=== PATIENT | male | born 1940 | race Caucasian/White ===

== ENCOUNTER 2017-12-14 09:30 | Day surgery (SDC) | payer MEDICARE, SELFPAY ==
--- NOTE | 2017-12-14 | PATH_ITS ---
[facility] Accession Number: [id number] . 01 Material submitted: . PART A: CECAL POLYP PART B: ASCENDING COLON POLYPS X5 PART C: TRANSVERSE COLON POLYPS X4 . 02 Diagnosis: A. Cecal Polyp: Tubular adenoma. . B. Ascending Colon Polyps: Fragments of tubular adenoma (five polyps removed). . C. Transverse Colon Polyps: Fragments of tubular adenoma (four polyps removed). [facility]/12/16/2017 . 02 Electronically signed: . Monty Reno MD, PhD, Pathologist NPI- [id number] . 01 Gross description: . Part A: CECAL POLYP: Received in formalin are 3 fragment(s) of whelan, soft tissue measuring 1.1 x 0.4 x 0.3 cm to 0.3 x 0.3 x 0.1 cm submitted entirely in 1 cassette(s) Part B: ASCENDING COLON POLYPS X5: Received in formalin are multiple fragment(s) of whelan, soft tissue measuring 1.0 x 0.3 x 0.2 cm in aggregate submitted entirely in 1 cassette(s) Part C: TRANSVERSE COLON POLYPS X4: Received in formalin are multiple fragment(s) of whelan, soft tissue measuring 2.0 x 0.4 x 0.2 cm in aggregate submitted entirely in 1 cassette(s) /CKI /CKI . 02 Pathologist provided ICD-10: D12.0, D12.2, D12.3 . 02 CPT . 080993, 577224, [id number] Performed at: 01 [facility] [address] [facility] [place], [place], [place] [id number] MD Ferny Green MD Phone: [phone] Performed at: 02 [facility] [address] [place] [id number] MD Dave Salmon MD Phone: [phone]
[2017-12-14 09:48] VITALS: BP 152/70; PULSE 82; RESP 16; TEMP 37.2; O2SAT 95; BMI 34.5
[2017-12-14] MEDS: SODIUM CHLORIDE 0.9% 1,000 ML 70 ML IV (09:59)
--- NOTE | 2017-12-14 10:21 | PM.HP.1 ---
History of Present Illness Date Patient Seen: 12/14/17 Chief complaint: [id number] Narrative: 77-year-old male with history of colon polyps who is here for surveillance. The patient is not on any anticoagulation and currently has no active GI issues. Prior colonoscopy report not available for review although the patient mentions he has had multiple colonoscopies in the past the last being around 3 years ago with polyps being found. Patient History Family & Social History Social History: household members spouse Meds Home Medications Medication Instructions Recorded Confirmed Type ASPIRIN (Aspirin Low Dose) 81 mg PO Q DAY #0 02/21/10 History DILTIAZEM HCL (DILT-CD) 240 mg PO BID #0 01/24/12 History hydrochlorothiazide [Microzide] 25 mg PO Q DAY #0 01/24/12 History irbesartan [Avapro] 300 mg PO QDAY #0 01/24/12 History hydralazine 50 mg tablet 50 mg PO TID 11/02/17 History tamsulosin 0.4 mg capsule 0.4 mg PO DAILY 11/02/17 11/02/17 History Allergies Allergy/AdvReac Type Severity Reaction Status Date / Time No Known Drug Allergies Allergy Verified 12/14/17 10:08 Review of Systems Review of Systems All systems reviewed & are unremarkable except as noted in HPI and below Exam Vital Signs (past 8 hours): - 12/14/17 09:48 Temperature 98.9 F Pulse Rate 82 Respiratory Rate 16 Blood Pressure 152/70 H Pulse Oximetry 95 Oxygen Delivery Method Room Air Narrative Exam Narrative: General: Patient is obese, not in apparent distress Cardiovascular: Regular rate and rhythm, no murmurs, rubs, or gallops; no evidence of edema; no palpable abdominal aortic aneurysm Gastrointestinal: Normoactive bowel sounds, soft, nontender, nondistended, no rebound tenderness, no hepatosplenomegaly, no evidence of hernia Assessment & Plan Plan: Assessment/Plan Narrative: 77-year-old male who is here for a surveillance colonoscopy due to history of colon polyps. Patient appears stable for the procedure with no active GI complaints. He is currently on aspirin. Regarding the procedure(s), the risks and potential complications, benefits, and alternatives (including not doing the procedure) were discussed with the patient. The risks include but are not limited to bleeding, infection, perforation which may require surgical intervention, missed lesions, and adverse reactions to sedative medicines. After a question and answer period, the patient agreed to proceed with the procedure(s) and gives informed consent.
--- NOTE | 2017-12-14 11:01 | PM.OP.ENDO ---
Operative Date/Time/Diagnoses Date of procedure: 12/14/17 Procedure Notes Procedure in detail: Surgeon: Kalpesh Horta MD Procedure: Colonoscopy with polypectomy Preoperative diagnosis: Colon polyp surveillance; primary procedure Postoperative diagnosis: 10 colon polyps status post polypectomy; sigmoid diverticulosis; grade 1 internal hemorrhoids Medications: Conscious sedation using 3 mg IV of Midazolam and 75 mcg IV of Fentanyl Preanesthesia Assessment An H and P was performed/updated and the Px?s ASA class is 2. The procedure was discussed in detail with the patient. The potential risks and complications including infection, bleeding, missed lesions, perforation, need for surgery in case of perforation, prolonged hospital stay, and were explained. A brief question and answer period was allotted and once all questions were answered, informed consent was obtained. The patient was brought back to the procedure room and placed on standard monitoring. The patient?s vital signs were monitored continuously throughout the entire procedure. Prior to starting, a timeout was performed to confirm the patient?s identity, allergies, medications, and procedure. Procedure in detail The patient was placed in left lateral decubitus position and once adequate sedation was obtained a KEVIN was performed. The digital rectal examination did not reveal any palpable lesions. The tip of the colonoscope was placed in the anal canal and advanced without difficulty all the way to the cecum which was identified by the appendiceal orifice and the ileocecal valve. The terminal ileum was intubated to a distance of 5 cm from the ileocecal valve and this appeared normal. The colonoscope was brought back to the cecum and careful examination of all valderrama of the colon was performed with irrigation of any residual stool. In the cecum there was note of a 5 mm sessile polyp which was removed in its entirety by means of a cold snare with minimal bleeding In the ascending colon there was note of 5 sessile polyps measuring 1-3 mm in these were all removed in their entirety by means of a cold Jumbo forceps with minimal bleeding In the transverse colon there was note of 4 polyps. Three of the polyps were removed by means of cold snare as they measured 6-8 mm in size and were sessile. The last colon polyp was 3 mm in size and was removed by means of a cold Jumbo forceps with minimal bleeding There were multiple medium-sized diverticula in the sigmoid colon. Retroflexion was performed in the rectum with note of grade 1 internal hemorrhoids. The patient tolerated the procedure well and will be brought back to the recovery area to be discharged once criteria are met. The prep was judged to be good/excellent and adequate to identify polyps less than 5 mm. The withdrawal time was 15 min. The total procedure time from initial sedation was 24 min. Complications There were no complications and estimated blood loss was minimal. Recommendations: Resume previous diet Continue outPx medications Follow up pathology results Repeat colonoscopy in 1 year given number of polyps An emergency contact number was given to the patient for any complications related to the procedure
[2017-12-14] MEDS: MIDAZOLAM 5 MG/5 ML VIAL IV (11:11)
[2017-12-14] MEDS: fentaNYL 250 MCG/5 ML INJ IV (11:12)
--- NOTE | 2017-12-14 11:23 | SUR.OPER ---
Multiple plyps removed with coled snare and biopsy forcep
[2017-12-14 11:32] VITALS: BP 152/81; PULSE 66; RESP 16; TEMP 36.8; O2SAT 96
--- NOTE | 2017-12-14 11:36 | PM.DS.1 ---
History of Present Illness Chief complaint: [id number] Narrative: 77-year-old male with history of colon polyps who is here for surveillance. The patient is not on any anticoagulation and currently has no active GI issues. Prior colonoscopy report not available for review although the patient mentions he has had multiple colonoscopies in the past the last being around 3 years ago with polyps being found. Discharge Providers Primary care physician: Keshawn Cruz MD Discharge provider: Kalpesh Horta MD Exam Vital Signs (past 8 hours): - 12/14/17 09:48 12/14/17 11:32 Temperature 98.9 F 98.3 F Pulse Rate 82 66 Respiratory Rate 16 16 Blood Pressure 152/70 H 152/81 H Pulse Oximetry 95 96 Oxygen Delivery Method Room Air Narrative Exam Narrative: General: Patient is obese, not in apparent distress Cardiovascular: Regular rate and rhythm, no murmurs, rubs, or gallops; no evidence of edema; no palpable abdominal aortic aneurysm Gastrointestinal: Normoactive bowel sounds, soft, nontender, nondistended, no rebound tenderness, no hepatosplenomegaly, no evidence of hernia Discharge Plan Discharge Plan Patient Disposition: Home Discharge Med Rec/Prescriptions Prescriptions: Continue ASPIRIN (Aspirin Low Dose) 81 mg PO Q DAY Qty: 0 RF: 0 irbesartan [Avapro] 300 MG tablet 300 mg PO QDAY Qty: 0 RF: 0 hydrochlorothiazide [Microzide] 12.5 MG capsule 25 mg PO Q DAY Qty: 0 RF: 0 DILTIAZEM HCL (DILT-CD) 240 mg PO BID Qty: 0 RF: 0 tamsulosin 0.4 mg capsule 0.4 mg PO DAILY RF: 0 hydralazine 50 mg tablet 50 mg PO TID RF: 0 Discharge Orders: Discharge (Order); Ordered 12/14/17 Ordered By: Kalpesh Horta Provider Discharge Instructions Diet: Diet as Tolerated Visit Report/Discharge Packet Stand Alone Forms: Surgery Discharge Discharge Data Primary Care Provider: Keshawn Cruz V Attending Provider: Kalpesh Horta
[2017-12-14 12:00] VITALS: BP 159/80; PULSE 63; RESP 14; TEMP 36.3; O2SAT 96
[2017-12-14 12:18] VITALS: BP 170/84; PULSE 75; RESP 16; TEMP 36.3; O2SAT 95
== END 2017-12-14 12:20 | disposition home or self-care (01) ==
PROVIDERS: PCP Internal Medicine; Visit Provider Internal Medicine Gastroenterology
PROC: 0DJD8ZZ Inspection of Lower Intestinal Tract, Via Natural or Artificial Opening Endoscopic (ICD-10-PCS; CPT 45378; principal; 2017-12-14 10:30)
DX: Z86.010 Personal history of colon polyps (principal); E66.9 Obesity, unspecified; Z79.82 Long term (current) use of aspirin; K57.30 Diverticulosis of large intestine without perforation or abscess without bleeding; K64.0 First degree hemorrhoids; D12.0 Benign neoplasm of cecum; D12.2 Benign neoplasm of ascending colon; D12.3 Benign neoplasm of transverse colon
CPT/HCPCS: 45385; 45380; J2250; J3010

== ENCOUNTER → 2018-11-16 10:50 | Outpatient (CLI) | payer MEDICARE, SELFPAY ==
--- NOTE | 2018-11-16 | DI.RAD.S_ITS ---
PROCEDURE: XR CHEST 2V INDICATIONS: CHEST XRAY TECHNIQUE: 2 views of the chest were acquired. COMPARISON: [facility], CHEST 1 VIEW, 01/25/2012, 12:15. [facility], , CHEST FOR PICC PLACEMENT, 01/27/2012, 10:54. FINDINGS: Surgical changes and devices: Status post TAVR. Lungs and pleura: Bibasilar patchy opacities, which appear increased since from a prior studies there is mild retrocardiac opacity. No pleural effusions or pneumothorax. Mediastinum: Mediastinal contours are normal. Heart size is normal. Bones and chest wall: No suspicious bony abnormalities. Soft tissues appear unremarkable. IMPRESSION: Bibasilar and retrocardiac opacities, potentially aspiration/atelectasis versus pneumonia however cannot exclude chronic scarring in the absence of more recent prior studies. If there is persistent clinical diagnostic uncertainty, continued surveillance with short interval chest radiographs after treatment is recommended. Dictated by: Sebastian Seay M.D. on 11/16/2018 at 11:23 Approved by: Sebastian Seay M.D. on 11/16/2018 at 11:25
== END ==
PROVIDERS: PCP Internal Medicine; Visit Provider Internal Medicine
DX: R94.2 Abnormal results of pulmonary function studies (principal); R91.8 Other nonspecific abnormal finding of lung field
CPT/HCPCS: 71046

== ENCOUNTER 2019-01-31 08:25 | Day surgery (SDC) | payer MEDICARE, SELFPAY ==
--- NOTE | 2019-01-31 | PATH_ITS ---
[facility] Accession Number: [id number] . 01 Material submitted: . PART A: cecum - CECAL POLYPS X3 PART B: colon - DESCENDING COLON POLYP . 02 Diagnosis: A. Cecum, Polyps x3, Biopsies: Tubular adenomas. . B. Descending Colon, Polyp, Biopsy: Tubular adenoma. [facility] 02/01/2019 1309 Local . 02 Electronically signed: . Jelly Lindsay MD, Pathologist NPI- [id number] . 01 Gross description: . Part A: CECAL POLYPS X3: Received in formalin are 4 fragment(s) of whelan, soft tissue measuring 0.1 x 0.1 x 0.1 cm to 0.5 x 0.3 x 0.2 cm submitted entirely in 1 cassette(s) Part B: DESCENDING COLON POLYP: Received in formalin is 1 fragment(s) of whelan, soft tissue measuring 1.0 x 0.3 x 0.3 cm submitted entirely in 1 cassette(s) /[facility] 01/31/2019 1926 Local . 02 Pathologist provided ICD-10: D12.0, D12.4 . 02 CPT . 644916, 407197 Performed at: 01 [facility] [address], [place], [place] [id number] MD Ferny Green MD Phone: [phone] Performed at: 02 [facility] [address] [place], [place] [id number] MD Jelly Lindsay MD Phone: [phone]
[2019-01-31 08:45] VITALS: BP 151/76; PULSE 66; RESP 18; TEMP 36.5; O2SAT 94; BMI 39.3
[2019-01-31] MEDS: SODIUM CHLORIDE 0.9% 1,000 ML 100 ML IV (08:45)
--- NOTE | 2019-01-31 09:28 | PM.HP.1 ---
History of Present Illness History of Present Illness Chief complaint: [id number] Patient History Medical History Central sleep apnea (Chronic) Fatigue (Chronic) Hypertension (Chronic) Morbid obesity with body mass index of 40.0-49.9 (Chronic) Obstructive sleep apnea of adult (Chronic) Surgical History S/P TAVR (transcatheter aortic valve replacement) (Chronic) Family & Social History Social History: household members spouse Meds Home Medications and Allergies Home Medications Medication Instructions Recorded Confirmed Type aspirin [Aspir-Low] 81 mg PO DAILY #0 02/21/10 01/31/19 History diltiazem HCl 240 mg PO DAILY #0 01/24/12 01/31/19 History irbesartan [Avapro] 300 mg PO QDAY #0 01/24/12 01/31/19 History hydralazine 50 mg tablet 50 mg PO TID 11/02/17 01/31/19 History tamsulosin 0.4 mg capsule 0.4 mg PO DAILY 11/02/17 01/31/19 History ResMed AirCurve 10 VAuto BIPAP #1 ea 05/11/18 07/25/18 History carvedilol 3.125 mg tablet 3.125 mg PO BID 07/25/18 01/31/19 History Allergies Allergy/AdvReac Type Severity Reaction Status Date / Time latex Allergy Intermediate Hives Verified 01/31/19 08:56 Review of Systems Review of Systems ROS Unobtainable: All systems reviewed & are unremarkable except as noted in HPI and below Exam Vital Signs (past 8 hours): - 01/31/19 08:45 Temperature 97.7 F Pulse Rate 66 Respiratory Rate 18 Blood Pressure 151/76 H Pulse Oximetry 94 Oxygen Delivery Method Room Air Narrative Exam Narrative: Awake alert oriented x3, no acute distress, lungs clear, heart regular rate and rhythm, abdomen nondistended nontender, no lower extremity edema Assessment & Plan Assessment & Plan narrative: History of colon polyps for colonoscopy
[2019-01-31] MEDS: MIDAZOLAM 5 MG/5 ML VIAL IV (10:32)
[2019-01-31] MEDS: fentaNYL 250 MCG/5 ML INJ IV (10:33)
[2019-01-31 10:36] VITALS: BP 162/73; PULSE 54; RESP 16; TEMP 36.2; O2SAT 93
--- NOTE | 2019-01-31 10:40 | PM.OP.ENDO ---
Operative Date/Time/Diagnoses Date of procedure: 01/31/19 Procedure & Clinicians Study performed: Colonoscopy with snare polypectomy Moderate conscious sedation was administered by the endoscopy nurse and supervised by the endoscopist. The following parameters were monitored: Oxygen saturation, heart rate, blood pressure, and response to care. Same procedure as scheduled: Yes Indications: Colon cancer screening. Personal history of colon polyps. Last colonoscopy done in 2018 Procedure Notes Procedure in detail: Prior to the procedure, history and physical was performed, and patient medications and allergies were reviewed. Preprocedure nursing history and assessment was reviewed. Patient identification and proposed procedure were verified by the physician and nurse in the procedure room. The physical status of the patient was reassessed after the procedure. After informed consent was obtained including risks, benefits, and alternatives, the scope was passed under direct vision. Throughout the procedure, the patient's blood pressure, pulse, and oxygen saturations were monitored continuously. The colonoscope was introduced through the anus and advanced to the cecum as identified by the appendiceal orifice and ileocecal valve. The patient tolerated the procedure well. Bowel prep was deemed adequate to detect polyps greater than 5 mm. Digital rectal examination and perianal examination were unremarkable. Retroflexion in the rectum was unrevealing. Many medium mouth diverticula noted throughout the entire colon Four polyps ranging in size from 4 mm to 6 mm were noted in the cecum (3) and descending colon (1). These were resected using a cold snare and retrieved. A moderate amount of semi-liquid stool was noted throughout the entire colon. Lavage performed with adequate clearance to detect polyps greater than 5 mm Impression: Pancolonic diverticulosis Four 4-6 mm polyps removed from the cecum and descending colon Sedation minutes: 27 Complications: other (EBL minimal. No complications) Post-procedure Plan for aftercare: Follow-up pathology results Repeat colonoscopy at a date to be determined based on pathology results Resume home medications High fiber diet Discharge home with escort when discharge criteria met
[2019-01-31 10:41] VITALS: BP 157/77; PULSE 52; RESP 14; O2SAT 95
[2019-01-31 10:46] VITALS: BP 150/75; PULSE 54; RESP 15; O2SAT 95
[2019-01-31 10:52] VITALS: BP 151/84; PULSE 55; RESP 9; O2SAT 96
--- NOTE | 2019-01-31 11:01 | SUR.PHASEI ---
Report to Tatyana Turcios RN. VSS, HRR, denies pain or abd discomfort. Tolerated oral intake well.
[2019-01-31 11:05] VITALS: BP 165/74; PULSE 54; RESP 15; TEMP 36.3; O2SAT 94
--- NOTE | 2019-01-31 11:18 | SUR.PHASEII ---
brought in, d/c instructions discussed, pt asked to go home, pt assisted to dress by . Pt left when ready and left in stable condition.
== END 2019-01-31 11:20 | disposition home or self-care (01) ==
PROVIDERS: PCP Internal Medicine; Visit Provider Internal Medicine
PROC: 0DJD8ZZ Inspection of Lower Intestinal Tract, Via Natural or Artificial Opening Endoscopic (ICD-10-PCS; CPT 45378; principal; 2019-01-31 09:30)
DX: Z86.010 Personal history of colon polyps (principal); G47.31 Primary central sleep apnea; I10 Essential (primary) hypertension; E66.9 Obesity, unspecified; Z68.41 Body mass index [BMI] 40.0-44.9, adult; D12.0 Benign neoplasm of cecum; K57.30 Diverticulosis of large intestine without perforation or abscess without bleeding; D12.4 Benign neoplasm of descending colon
CPT/HCPCS: 45385; J2250; J3010

== ENCOUNTER → 2019-05-24 19:34 | Outpatient (ROUT) | payer MEDICARE, SELFPAY ==
[2019-05-24 20:06] LABS: Add Manual Diff / Slide Review NO; Basophils Absolute Auto 100 /uL (0-100); Basophils Percent Auto 1.7 % (0-2); Eosinophils Absolute Auto 300 /uL (0-450); Eosinophils Percent Auto 4.8 % (2-4); Hematocrit 40.4 % (41-53); Hemoglobin 13.5 g/dL (13.5-17.5); Lymphocytes Absolute Auto 1600 /uL (1100-4500); Lymphocytes Percent Auto 23.3 % (25-40); Mean Corpuscular HGB Conc 33.4 % (30-36); Mean Corpuscular Hemoglobin 28.9 PG (26-34); Mean Corpuscular Volume 86.7 fL (80-100); Monocytes Absolute Auto 700 /uL (0-900); Monocytes Percent Auto 10.2 % (3-14); Neutrophils Absolute Auto 4000 /uL (1500-7000); Platelet Count 201 X10^3/uL (150-400); Red Blood Cell Count 4.66 X10^6/uL (4.5-5.9); Red Cell Distribution Width 14.8 % (11.6-14.8); White Blood Cell Count 6.7 X10^3/uL (4.5-11.0)
[2019-05-24 20:26] LABS: Erythrocyte Sedimentation Rate 7 MM/HR (0-15)
[2019-05-24 20:28] LABS: C-Reactive Protein Quant 0.7 mg/dL (<1.0)
== END ==
PROVIDERS: PCP Internal Medicine; Visit Provider Internal Medicine
DX: M31.6 Other giant cell arteritis (principal)
CPT/HCPCS: 85025; 85651; 86140

== ENCOUNTER → 2019-07-17 17:15 | Outpatient (ROUT) | payer MEDICARE, SELFPAY | PROVIDERS: PCP Internal Medicine; Visit Provider Internal Medicine | DX: R39.9 Unspecified symptoms and signs involving the genitourinary system (principal) | CPT/HCPCS: 87077; 87086; 87186 ==

== ENCOUNTER → 2019-07-19 13:56 | Oncology outpatient (ONC) | payer MEDICARE, SELFPAY | LOC: ONC 13:59 | PROVIDERS: PCP Internal Medicine; Referring Provider Internal Medicine; Visit Provider Internal Medicine | DX: N39.0 Urinary tract infection, site not specified (principal); Z53.29 Procedure and treatment not carried out because of patient's decision for other reasons ==

== ENCOUNTER → 2019-07-20 18:07 | Outpatient (ROUT) | payer MEDICARE, SELFPAY | PROVIDERS: PCP Internal Medicine; Visit Provider Internal Medicine | DX: N39.0 Urinary tract infection, site not specified (principal) | CPT/HCPCS: 87077; 87086; 87186 ==

== ENCOUNTER → 2019-10-16 20:00 | Outpatient (ROUT) | payer MEDICARE, SELFPAY ==
[2019-10-16 20:21] LABS: Add Manual Diff / Slide Review NO; Basophils Absolute Auto 100 /uL (0-100); Basophils Percent Auto 1.1 % (0-2); Eosinophils Absolute Auto 300 /uL (0-450); Eosinophils Percent Auto 4.1 % (2-4); Hematocrit 42.4 % (41-53); Lymphocytes Absolute Auto 1500 /uL (1100-4500); Lymphocytes Percent Auto 22.6 % (25-40); Mean Corpuscular HGB Conc 33.1 % (30-36); Mean Corpuscular Hemoglobin 29.3 PG (26-34); Mean Corpuscular Volume 88.4 fL (80-100); Monocytes Absolute Auto 700 /uL (0-900); Monocytes Percent Auto 9.6 % (3-14); Neutrophils Absolute Auto 4200 /uL (1500-7000); Neutrophils Percent Auto 62.6 % (50-75); Platelet Count 209 X10^3/uL (150-400); Red Blood Cell Count 4.79 X10^6/uL (4.5-5.9); Red Cell Distribution Width 15.1 % (11.6-14.8); White Blood Cell Count 6.8 X10^3/uL (4.5-11.0)
[2019-10-16 20:27] LABS: Albumin 4.6 g/dL (3.5-5.0); Albumin Globulin Ratio 1.5 (1.0-2.8); Alkaline Phosphatase 70 U/L (38-126); Aspartate Aminotransferase 24 IU/L (17-59); Bilirubin Total 0.5 mg/dL (0.2-1.3); Blood Urea Nitrogen 16 mg/dL (9-20); Calcium 9.9 mg/dL (8.4-10.2); Carbon Dioxide 23 mmol/L (22-32); Chloride 105 mmol/L (98-107); Cholesterol 155 mg/dL (140-199); Estimated Glomerular Filt Rate > 60.0 mL/min (>60); Glucose 111 mg/dL (80-110); HDL Cholesterol 45 mg/dL (40-60); HEMOLYSIS < 15 (0-50); LDL Cholesterol Calculated 76 mg/dL (<100); Potassium 4.1 mmol/L (3.4-5.1); Sodium 139 mmol/L (137-145); Total Protein 7.6 g/dL (6.3-8.2); Triglycerides 168 mg/dL (35-150)
[2019-10-16 20:55] LABS: Hemoglobin A1C% w Est Avg Glu 6.3 % (4.0-6.0)
[2019-10-16 20:58] LABS: TSH w/ Reflex to FT4 2.44 uIU/mL (0.47-4.68)
[2019-10-17 14:30] LABS: Alanine Aminotransferase 23 IU/L (<50)
== END ==
PROVIDERS: PCP Internal Medicine; Visit Provider Internal Medicine
DX: I25.10 Atherosclerotic heart disease of native coronary artery without angina pectoris (principal); E78.2 Mixed hyperlipidemia; R73.01 Impaired fasting glucose
CPT/HCPCS: 80053; 80061; 83036; 84443; 85025

== ENCOUNTER 2019-11-08 19:07 | Inpatient (IN) | payer MEDICARE, SELFPAY ==
[2019-11-08] VITALS (11 sets, daily range): BP systolic 140–152; BP diastolic 66–77; PULSE 63–87; RESP 16–19; TEMP 36.7–38.7; O2SAT 90–96; BMI 40.4
--- NOTE | 2019-11-08 19:20 | ED.GENADULT ---
HPI - General Adult General Chief complaint: Fever Stated complaint: fever Time Seen by Provider: 11/08/19 19:18 History of Present Illness HPI narrative: 79-year-old gentleman with a history of 3 independent bladder cancers, BPH requiring self catheterization for any voids, coronary artery disease and high blood pressure presents complaining of burning at the end of his urinary catheterization, fevers as high as 103, increasing weakness and increasing mild confusion with low back pain but not overt flank pain. He has had multiple urinary tract infections previously and is concerned that he has 1 again. He saw his primary care physician and a urinalysis was obtained yesterday and he was started on ciprofloxacin fevers have increased and he feels that he is getting worse. He has taken only 1 dose of Cipro. Lab work from July shows an E coli infection that was resistant to Cipro but sensitive to piperacillin tazobactam. Related Data Home Medications Medication Instructions Recorded Confirmed aspirin [Aspir-Low] 81 mg PO DAILY #0 02/21/10 01/31/19 diltiazem HCl 240 mg PO DAILY #0 01/24/12 01/31/19 irbesartan [Avapro] 300 mg PO QDAY #0 01/24/12 01/31/19 hydralazine 50 mg tablet 50 mg PO TID 11/02/17 01/31/19 tamsulosin 0.4 mg capsule 0.4 mg PO DAILY 11/02/17 01/31/19 ResMed AirCurve 10 VAuto BIPAP #1 ea 05/11/18 07/25/18 carvedilol 3.125 mg tablet 3.125 mg PO BID 07/25/18 01/31/19 Allergies Allergy/AdvReac Type Severity Reaction Status Date / Time latex Allergy Intermediate Hives Verified 01/31/19 08:56 Review of Systems Review of Systems Narrative: When he went to stand up today his found that his legs were simply too weak to hold him Positive chills and rigors Low back pain but no flank pain, no abdominal pain, nausea, vomiting, diarrhea No coughing, dyspnea, headaches No skin changes rashes or concerns for cellulitis no increased lower extremity edema Patient History Medical History Central sleep apnea (Chronic) Fatigue (Chronic) Hypertension (Chronic) Morbid obesity with body mass index of 40.0-49.9 (Chronic) Obstructive sleep apnea of adult (Chronic) Surgical History S/P TAVR (transcatheter aortic valve replacement) (Chronic) Social History household members: spouse Smoking Status: Never smoker Exam Narrative Exam Narrative: General: Slightly flushed and hot to the touch, in no acute distress. Able to give a complete and coherent history. Well-nourished well-developed HEENT: Moist mucous membranes, normal sclera with reactive pupils, Neck: No JVD, supple Respiratory: Lungs are clear to auscultation, no wheezing no rales no rhonchi. Full and symmetrical air movement Cardiac: Regular rate and rhythm, 3/6 murmur, no bruits Abdomen: Soft nontender good bowel tones, no flank pain Skin: Warm and dry, no rashes Neurologic: Grossly neurologically intact with no obvious asymmetries or abnormalities Extremities: No trauma, well perfused Psych: Cooperative, appropriate insight and affect Initial Vital Signs Initial Vital Signs: Vital Signs Temperature 101.6 F H 11/08/19 19:15 Pulse Rate 87 11/08/19 19:15 Respiratory Rate 16 11/08/19 19:15 Blood Pressure 152/66 H 11/08/19 19:15 Pulse Oximetry 90 L 11/08/19 19:15 Course Orders Ordered: ED Orders 11/08/19 19:30 Urinalysis and Microscopic Stat Urine Culture Stat 11/08/19 19:45 XR chest 1V Stat 11/08/19 20:05 Complete Blood Count AUTO DIFF Stat Comprehensive Metabolic Panel Stat Lactate (Lactic Acid) Stat Procalcitonin Stat 11/08/19 20:30 Blood Culture Stat Discontinued Medications Acetaminophen (Tylenol) 650 mg PO NOW ONE Stop: 11/08/19 19:50 Last Admin: 11/08/19 20:44 Dose: 650 mg Documented by: ANDREW Piperacillin/Tazobactam/Dextrose (Zosyn) 3.375 gm in 50 mls @ 100 mls/hr IV NOW ONE Stop: 11/08/19 20:14 Last Infusion: 11/08/19 21:22 Dose: 0 mls/hr Documented by: Admin: 11/08/19 20:43 Dose: 100 mls/hr Documented by: ANDREW Sodium Chloride (Normal Saline 0.9%) 1,000 mls @ 1,000 mls/hr IV BOLUS ONE Stop: 11/08/19 20:43 Last Admin: 11/08/19 20:44 Dose: 1,000 mls/hr Documented by: ANDREW Vital Signs Vital signs: Vital Signs - 8 hr 11/08/19 19:15 11/08/19 19:17 11/08/19 19:30 Temperature 101.6 F H Pulse Rate 87 81 Respiratory Rate 16 Blood Pressure 152/66 H 152/66 H 148/67 H Pulse Oximetry 90 L 93 11/08/19 20:00 11/08/19 20:30 Temperature Pulse Rate 76 77 Respiratory Rate Blood Pressure 150/68 H Pulse Oximetry 94 94 Medical Decision Making Medical Records Medical records reviewed: Yes I reviewed the patient's medical records. Lab Data Lab results reviewed: Yes I reviewed the patient's lab results. Lab results narrative: Most recent UTI from July showed E coli sensitive to ertapenem, imipenem, nitrofurantoin and pip-tazo. Resistant to Cipro Result diagrams: 11/08/19 20:05 11/08/19 20:05 Labs: Lab Results 11/08/19 11/08/19 11/08/19 Range/Units 19:30 20:05 20:05 WBC 7.7 (4.5-11.0) X10^3/uL RBC 4.41 L (4.5-5.9) X10^6/uL Hgb 12.7 L (13.5-17.5) g/dL Hct 38.0 L (41-53) % MCV 86.3 (80-100) fL MCH 28.8 (26-34) PG MCHC 33.4 (30-36) % RDW 14.4 (11.6-14.8) % Plt Count 187 (150-400) X10^3/uL Neut % (Auto) 83.5 H (50-75) % Lymph % (Auto) 5.9 L (25-40) % [place] % (Auto) 9.2 (3-14) % Eos % (Auto) 0.5 L (2-4) % Baso % (Auto) 0.9 (0-2) % Neut # (Auto) 6400 (2672-1262) /uL Lymph # (Auto) 500 L (2063-1549) /uL [place] # (Auto) 700 (0-900) /uL Eos # (Auto) 0 (0-450) /uL Baso # (Auto) 100 (0-100) /uL Sodium (137-145) mmol/L Potassium (3.4-5.1) mmol/L Chloride (98-107) mmol/L Carbon Dioxide (22-32) mmol/L BUN (9-20) mg/dL Creatinine (0.66-1.25) mg/dL Estimated GFR (>60) mL/min BUN/Creatinine Ratio (6-22) Glucose (80-110) mg/dL Lactate (0.7-2.1) mmol/L Calcium (8.4-10.2) mg/dL Total Bilirubin (0.2-1.3) mg/dL AST (17-59) IU/L ALT (<50) IU/L Alkaline Phosphatase (38-126) U/L Total Protein (6.3-8.2) g/dL Albumin (3.5-5.0) g/dL Globulin (1.7-4.1) g/dL Albumin/Globulin Ratio (1.0-2.8) Procalcitonin 0.53 H (<0.5) ng/mL Urine Color Yellow Urine Appearance Sl cloudy Urine pH 6.0 (4.5-8.0) Ur Specific [place] 1.010 (1.000-1.035) Urine Protein 2+ H (Negative) Urine Glucose (UA) Negative (Negative) g/dL Urine Ketones Negative (NEGATIVE) Urine Occult Blood Trace-lysed (Negative) Urine Nitrate Negative (Negative) Urine Bilirubin Negative (NEGATIVE) Urine Urobilinogen 0.2 (0.2) E.U./dL Ur Leukocyte Esterase 2+ H (NEGATIVE) Urine RBC 0-1/hpf (0-5/HPF) Urine WBC 10-30/hpf H (0-5/HPF) Ur Squamous Epith Cells 0-1 /hpf (0-5/HPF) Urine Bacteria Moderate (10-30) H (None) Ur Culture Indicated? Specimen cultured COVID-19 PCR (Negative) 11/08/19 11/08/19 11/08/19 Range/Units 20:05 20:05 20:15 WBC (4.5-11.0) X10^3/uL RBC (4.5-5.9) X10^6/uL Hgb (13.5-17.5) g/dL Hct (41-53) % MCV (80-100) fL MCH (26-34) PG MCHC (30-36) % RDW (11.6-14.8) % Plt Count (150-400) X10^3/uL Neut % (Auto) (50-75) % Lymph % (Auto) (25-40) % [place] % (Auto) (3-14) % Eos % (Auto) (2-4) % Baso % (Auto) (0-2) % Neut # (Auto) (4898-5922) /uL Lymph # (Auto) (7976-5574) /uL [place] # (Auto) (0-900) /uL Eos # (Auto) (0-450) /uL Baso # (Auto) (0-100) /uL Sodium 135 L (137-145) mmol/L Potassium 3.4 (3.4-5.1) mmol/L Chloride 101 (98-107) mmol/L Carbon Dioxide 27 (22-32) mmol/L BUN 19 (9-20) mg/dL Creatinine 1.22 (0.66-1.25) mg/dL Estimated GFR 57.0 L (>60) mL/min BUN/Creatinine Ratio 15.6 (6-22) Glucose 148 H (80-110) mg/dL Lactate 0.8 (0.7-2.1) mmol/L Calcium 9.0 (8.4-10.2) mg/dL Total Bilirubin 0.6 (0.2-1.3) mg/dL AST 21 (17-59) IU/L ALT 20 (<50) IU/L Alkaline Phosphatase 59 (38-126) U/L Total Protein 6.9 (6.3-8.2) g/dL Albumin 3.8 (3.5-5.0) g/dL Globulin 3.1 (1.7-4.1) g/dL Albumin/Globulin Ratio 1.2 (1.0-2.8) Procalcitonin (<0.5) ng/mL Urine Color Urine Appearance Urine pH (4.5-8.0) Ur Specific [place] (1.000-1.035) Urine Protein (Negative) Urine Glucose (UA) (Negative) g/dL Urine Ketones (NEGATIVE) Urine Occult Blood (Negative) Urine Nitrate (Negative) Urine Bilirubin (NEGATIVE) Urine Urobilinogen (0.2) E.U./dL Ur Leukocyte Esterase (NEGATIVE) Urine RBC (0-5/HPF) Urine WBC (0-5/HPF) Ur Squamous Epith Cells (0-5/HPF) Urine Bacteria (None) Ur Culture Indicated? COVID-19 PCR Negative (Negative) MDM Narrative Medical decision making narrative: 79-year-old gentleman with a UTI with increasing systemic symptoms including fevers, chills, back pain and mild confusion along with significantly increased global weakness. At this point he is not evidencing any signs of sepsis with a maintained blood pressure and normal lactic acid as well as normal white blood cell count. The last UTI he had was sensitive only to IV antibiotics and nitrofurantoin which would be inadequate coverage given his systemic symptoms. With his global weakness and complicated urologic history with prior bladder cancers and required self catheterization 6 times a day, I believe he needs hospital admission for IV antibiotics until strength has returned and we clearly have the infection under control. A Melo catheter was placed to prevent worsening symptoms with recurrent in and out catheters as would be otherwise required 931pm Care discussed with hospitalist, admit accecpted. Discharge Plan Departure Patient Disposition: Admitted As Inpatient Clinical Impression: UTI (urinary tract infection) Qualifiers: Urinary tract infection type: acute cystitis Hematuria presence: without hematuria Qualified Code(s): N30.00 - Acute cystitis without hematuria Referrals: Keshawn Cruz MD [Primary Care Provider] -
[2019-11-08 19:36] LABS: Appearance Urine UA SL CLOUDY; Bilirubin Urine UA NEGATIVE (NEGATIVE); Color Urine UA YELLOW; Glucose Urine UA NEGATIVE (Negative); Ketones Urine UA NEGATIVE (NEGATIVE); Leukocyte Esterase Urine UA 2+ (NEGATIVE); Nitrite Urine UA NEGATIVE (Negative); Occult Blood Urine UA TRACE-LYSED (Negative); Protein Urine UA 2+ (Negative); Urobilinogen Urine UA 0.2 E.U./dL (0.2)
[2019-11-08 19:42] LABS: Bacteria Urine Moderate (10-30); Culture Indicated Urine Specimen Cultured; RBC Urine 0-1/HPF (0-5/HPF); Squamous Epithelial Cell Urine 0-1 /HPF (0-5/HPF); WBC Urine 10-30/HPF (0-5/HPF)
--- NOTE | 2019-11-08 19:45 | DI.RAD.S_ITS ---
PROCEDURE: XR CHEST 1V INDICATIONS: fever TECHNIQUE: One view of the chest was acquired. COMPARISON: [facility], CR, XR CHEST 2V, 11/16/2018, 10:51. FINDINGS: Surgical changes and devices: Aortic valve prosthesis. Lungs and pleura: Lungs are clear. No pleural effusions or pneumothorax. Mediastinum: Mediastinal contours appear normal. Heart size is normal. Bones and chest wall: No suspicious bony lesions. Overlying soft tissues appear unremarkable. IMPRESSION: No acute cardiopulmonary disease process. Dictated by: Melissa Fernandez MD, PhD on 11/08/2019 at 20:45 Approved by: Melissa Fernandez MD, PhD on 11/08/2019 at 20:46
--- NOTE | 2019-11-08 20:10 | PC.NURSE ---
Attempted IV start. was able to draw labs but unable to advance catheter.
[2019-11-08 20:14] LABS: Add Manual Diff / Slide Review NO; Basophils Absolute Auto 100 /uL (0-100); Basophils Percent Auto 0.9 % (0-2); Eosinophils Absolute Auto 0 /uL (0-450); Eosinophils Percent Auto 0.5 % (2-4); Hemoglobin 12.7 g/dL (13.5-17.5); Lymphocytes Absolute Auto 500 /uL (1100-4500); Lymphocytes Percent Auto 5.9 % (25-40); Mean Corpuscular HGB Conc 33.4 % (30-36); Mean Corpuscular Hemoglobin 28.8 PG (26-34); Mean Corpuscular Volume 86.3 fL (80-100); Monocytes Absolute Auto 700 /uL (0-900); Monocytes Percent Auto 9.2 % (3-14); Neutrophils Absolute Auto 6400 /uL (1500-7000); Neutrophils Percent Auto 83.5 % (50-75); Platelet Count 187 X10^3/uL (150-400); Red Blood Cell Count 4.41 X10^6/uL (4.5-5.9); Red Cell Distribution Width 14.4 % (11.6-14.8); White Blood Cell Count 7.7 X10^3/uL (4.5-11.0)
[2019-11-08 20:28] LABS: Alanine Aminotransferase 20 IU/L (<50); Albumin 3.8 g/dL (3.5-5.0); Albumin Globulin Ratio 1.2 (1.0-2.8); Alkaline Phosphatase 59 U/L (38-126); Aspartate Aminotransferase 21 IU/L (17-59); BUN Creatinine Ratio 15.6 (6-22); Bilirubin Total 0.6 mg/dL (0.2-1.3); Blood Urea Nitrogen 19 mg/dL (9-20); Carbon Dioxide 27 mmol/L (22-32); Chloride 101 mmol/L (98-107); Globulin 3.1 g/dL (1.7-4.1); Glucose 148 mg/dL (80-110); HEMOLYSIS < 15 (0-50); Potassium 3.4 mmol/L (3.4-5.1); Sodium 135 mmol/L (137-145); Total Protein 6.9 g/dL (6.3-8.2)
[2019-11-08 20:29] LABS: Lactate (Lactic Acid) 0.8 mmol/L (0.7-2.1)
[2019-11-08 20:43] LABS: Procalcitonin 0.53 ng/mL (<0.5)
[2019-11-08] MEDS: PIPERACILLIN-TAZO 3.375 GM/50 ML FROZ.PIGGY IV (20:43)
[2019-11-08] MEDS: ACETAMINOPHEN 325 MG TABLET 650 MG PO (20:44)
[2019-11-08] MEDS: SODIUM CHLORIDE 0.9% 1,000 ML 1000 ML IV (20:44)
[2019-11-08 21:20] LABS: COVID19 -Nasal RAPID Negative (Negative)
--- NOTE | 2019-11-08 22:19 | PC.NURSE ---
Pt took night medications that he brought with him per Dr Hayes.
--- NOTE | 2019-11-08 22:25 | DI.US.S_ITS ---
PROCEDURE: US RENAL COMPLETE INDICATIONS: UTI, PYELONEPHRITIS, EVALUATE FOR OBSTRUCTIVE UROPATHY TECHNIQUE: Real-time scanning was performed of the kidneys and bladder, with image documentation. COMPARISON: [facility], CT, IVP (ABD & PEL WWO CONTRAST), 11/05/2016, 12:55. [facility], CT, KIDNEY/ URETER/BLADDER, 12/16/2016, 22:08. FINDINGS: Kidneys: Kidneys are normal in size. Right kidney measures 13.1 cm long; left kidney measures 15.3 cm long. Right renal cortical thickness is 1.5 cm; left renal cortical thickness is 1.3 cm. Areas of cortical thinning in the left kidney measuring 0.8 cm. Lobulated contour of the kidneys. Renal cortical echotexture is within normal limits. No hydronephrosis or nephrolithiasis. Concern for right renal mass measuring 2.5 x 2.2 x 1.8 cm. This could represent lobulation as no lesion is seen on the [address] CT. Bladder: Decompressed with Melo catheter. Miscellaneous: No free pelvic fluid. IMPRESSION: 1. No hydronephrosis. 2. Lobulated appearance of the kidneys with areas of cortical thinning/scarring. 3. Concern for right renal mass measuring 2.5 cm. -Recommend CT with IV contrast for further evaluation. (Consider renal protocol CT or IVP additional evaluation of the urinary tract). 4. Bladder is decompressed with Melo catheter limiting evaluation. Dictated by: Sony Randall M.D. on 11/09/2019 at 10:55 Approved by: Sony Randall M.D. on 11/09/2019 at 11:04
--- NOTE | 2019-11-08 22:33 | P.HP_ITS ---
History of Present Illness History of Present Illness Date Patient Seen: 11/09/19 Time Patient Seen: 23:15 Chief complaint: fever Narrative: Mr. Tim Perez is an 79-year-old male with history significant for bladder cancer with 1 recurrence, status post bladder chemotherapy completed in August of 2019, benign prostatic hypertrophy for which the patient self cathet erizes 6 times per day, severe aortic stenosis status post TAVR, hypertension, fatigue, central sleep apnea and morbid obesity who presents to the ER with complaints of fevers and urinary tract symptoms for 2 days. Patient reports having fevers with shaking chills that began 2-3 days ago before managed with Tylenol and resolved but developed a fever up to 103 at home today. He further reports urethral burning on catheterization, generalized weakness and complaints of low back pain. The patient was seen by Dr. Cruz, his primary care provider, who obtained a urine sample and started the patient on ciprofloxacin of which the patient has taken a single dose this morning. The patient has had prior urinary tract infections the last being July 20, 2019 were culture revealed multidrug resistant E coli that was treated 2 weeks of IV ertapenem. The patient reports no complaints recent illness or known COVID-19 exposures. Chemotherapy for his bladder was sewed tract installation into the bladder during which time he developed fatigue and weakness which has been slowly resolving since termination a chemotherapy. He denies visual changes nasal congestion or sore throat. He has no complaints of chest pain or palpitations. He denies complaints of shortness of breath and has had no cough. He has central sleep apnea is undergone sleep studies using home BiPAP. He denies complaints of epigastric or abdominal pain, no nausea or vomiting. He reports moving his bowels daily though describes some is large and hard. Upon arrival to the ER the patient is febrile with temperature of 101.6?, heart rate of 87, blood pressure 152/66, respirations of 16 saturating 93% on room air. Chest x-rays obtain finds no acute cardiopulmonary processes, TAVR implanted. On laboratory analysis the patient has white count of 7.7 with elevated neutrophils at 83.5%, hemoglobin 12.7, hematocrit of 38.0 platelets 187. His electrolytes home within normal range and has a BUN of 19 and a creatinine of 1.22. His nonfasting glucose is 148. His liver functions all within normal range and has albumin of 3.8. His lactic acid is 0.8 and procalcitonin is 0.53. On urinalysis is urine is cloudy with a specific gravity of 1.010, with 2+ protein, 2+ leukocyte as stress, positive for wbc's and moderate bacteria, negative nitrites and reflexed to culture. In the ER the patient received Tylenol with affective reduction of temperature, normal saline 1 L, blood cultures are drawn and patient received initial dose of Zosyn 3.375 g IV. The patient is admitted to the medicine service for acute cystitis. Primary care provider: Dr. Cruz Urology: Dr. Baker, Located within [facility] Patient History Medical History (Updated 11/08/19 @ 23:56 by LUIS ALFREDO Delarosa) Aortic stenosis (Acute) Bladder cancer (Acute) BPH (benign prostatic hyperplasia) (Acute) Central sleep apnea (Chronic) Fatigue (Chronic) Heart disease (Acute) Hypertension (Chronic) Morbid obesity with body mass index of 40.0-49.9 (Chronic) Obstructive sleep apnea of adult (Chronic) Surgical History (Updated 11/08/19 @ 23:56 by LUIS ALFREDO Delarosa) History of bladder surgery (Acute) S/P TAVR (transcatheter aortic valve replacement) (Chronic) Family & Social History Family History (Updated 11/08/19 @ 23:58 by LUIS ALFREDO Delarosa) Father Smoker Cancer Mother Smoker Cancer Sister Cancer Sister Cancer Social History: household members spouse Safety & Behavioral: Feels Safe in Current Yes Environment Tobacco & Substance use: Smoking Status Never smoker alcohol intake frequency 0-2 drinks per day Substance Use Type does not use Comment: The patient is and lives in a single family home. Smoking: The patient has never smoked but had extensive secondhand exposure. Alcohol: Patient endorses 1 drink daily Substance use: The patient denies recreational pharmaceuticals, herbal or cannabis products. Advanced directives: In direct discussion with the patient he states his wish to be FULL CODE. He further states his wish to not have prolonged life-sustaining treatment. He designates his to be his surrogate decision maker. Meds Home Medications and Allergies Home Medications Medication Instructions Recorded Confirmed Type aspirin [Aspir-Low] 81 mg PO DAILY #0 02/21/10 11/08/19 History diltiazem HCl 240 mg PO BID #0 01/24/12 11/08/19 History irbesartan [Avapro] 300 mg PO QDAY #0 01/24/12 11/08/19 History hydralazine 50 mg tablet 50 mg PO TID 11/02/17 11/08/19 History carvedilol 3.125 mg tablet 3.125 mg PO BID 07/25/18 11/08/19 History rosuvastatin 2.5 mg PO DAILY 11/08/19 11/08/19 History Allergies Allergy/AdvReac Type Severity Reaction Status Date / Time latex Allergy Intermediate Hives Verified 01/31/19 08:56 Review of Systems Review of Systems ROS: Yes All systems reviewed with the patient and are negative except as otherwise documented Exam Vital Signs (past 8 hours): - 11/08/19 19:15 11/08/19 19:17 11/08/19 19:30 Temperature 101.6 F H Pulse Rate 87 81 Respiratory Rate 16 Blood Pressure 152/66 H 152/66 H 148/67 H Pulse Oximetry 90 L 93 11/08/19 20:00 11/08/19 20:30 11/08/19 21:00 Temperature Pulse Rate 76 77 74 Respiratory Rate Blood Pressure 150/68 H Pulse Oximetry 94 94 94 11/08/19 21:30 11/08/19 22:00 11/08/19 22:15 Temperature 98.5 F Pulse Rate 66 63 Respiratory Rate Blood Pressure 150/68 H Pulse Oximetry 93 93 Oxygen Delivery Method Room Air Narrative Exam Narrative: GENERAL APPEARANCE: well developed, obese with BMI of 39.2 resting supine in bed n no acute distress. HEENT: Normocephalic, PERRLA, conjunctiva clear, EOMs intact without nystagmus, no sinus tenderness to percussion, no rhinorrhea, mucous membranes are moist and pink without lesions or exudate. NECK/THYROID: neck supple, no JVD, no carotid bruit, no thyromegaly, trachea midline. LYMPH NODES: no cervical or supraclavicular lymphadenopathy. SKIN: [place], warm and dry, no visible lesions, rashes. HEART: regular rate and rhythm, S1-S2, 2/6 systolic murmur, no rubs or gallops, brisk capillary refill, no edema LUNGS: clear to auscultation bilaterally, no coarseness crackles or wheezing, no cough present CHEST: Symmetrical movement, no accessory muscle use, good tidal volume. ABDOMEN: Soft, obese, no abdominal tenderness, no guarding or peritoneal signs, no organomegaly, no flank or suprapubic tenderness, active bowel tones. BACK: Normal curvature, nontender to palpation, no CVA tenderness on percussion, no back pain with straight leg raise EXTREMITIES: moves all extremities, strength is 5/5 and symmetrical, no d eformities or joint effusions. NEUROLOGIC: AAO x4, no focal neurologic deficits, cranial nerves II-XII grossly intact, sensation intact to light touch, impaired hearing PSYCH: Good judgment, good insight, linear thought process, cooperative, appropriate with stable behavior Objective Labs Result Diagrams: 11/08/19 20:05 11/08/19 20:05 Labs: Laboratory Results - last 24 hr 11/08/19 11/08/19 11/08/19 19:30 20:05 20:05 WBC 7.7 RBC 4.41 L Hgb 12.7 L Hct 38.0 L MCV 86.3 MCH 28.8 MCHC 33.4 RDW 14.4 Plt Count 187 Neut % (Auto) 83.5 H Lymph % (Auto) 5.9 L [place] % (Auto) 9.2 Eos % (Auto) 0.5 L Baso % (Auto) 0.9 Neut # (Auto) 6400 Lymph # (Auto) 500 L [place] # (Auto) 700 Eos # (Auto) 0 Baso # (Auto) 100 Sodium Potassium Chloride Carbon Dioxide BUN Creatinine Estimated GFR BUN/Creatinine Ratio Glucose Lactate Calcium Total Bilirubin AST ALT Alkaline Phosphatase Total Protein Albumin Globulin Albumin/Globulin Ratio Procalcitonin 0.53 H Urine Color Yellow Urine Appearance Sl cloudy Urine pH 6.0 Ur Specific [place] 1.010 Urine Protein 2+ H Urine Glucose (UA) Negative Urine Ketones Negative Urine Occult Blood Trace-lysed Urine Nitrate Negative Urine Bilirubin Negative Urine Urobilinogen 0.2 Ur Leukocyte Esterase 2+ H Urine RBC 0-1/hpf Urine WBC 10-30/hpf H Ur Squamous Epith Cells 0-1 /hpf Urine Bacteria Moderate (10-30) H Ur Culture Indicated? Specimen cultured COVID-19 PCR 11/08/19 11/08/19 11/08/19 20:05 20:05 20:15 WBC RBC Hgb Hct MCV MCH MCHC RDW Plt Count Neut % (Auto) Lymph % (Auto) [place] % (Auto) Eos % (Auto) Baso % (Auto) Neut # (Auto) Lymph # (Auto) [place] # (Auto) Eos # (Auto) Baso # (Auto) Sodium 135 L Potassium 3.4 Chloride 101 Carbon Dioxide 27 BUN 19 Creatinine 1.22 Estimated GFR 57.0 L BUN/Creatinine Ratio 15.6 Glucose 148 H Lactate 0.8 Calcium 9.0 Total Bilirubin 0.6 AST 21 ALT 20 Alkaline Phosphatase 59 Total Protein 6.9 Albumin 3.8 Globulin 3.1 Albumin/Globulin Ratio 1.2 Procalcitonin Urine Color Urine Appearance Urine pH Ur Specific [place] Urine Protein Urine Glucose (UA) Urine Ketones Urine Occult Blood Urine Nitrate Urine Bilirubin Urine Urobilinogen Ur Leukocyte Esterase Urine RBC Urine WBC Ur Squamous Epith Cells Urine Bacteria Ur Culture Indicated? COVID-19 PCR Negative Assessment & Plan Assessment & Plan narrative: This is an 79-year-old male patient with history of bladder cancer and BPH that self catheterizes up 6 times daily who presents for acute cystitis. 1. Acute cystitis, present on admission, active -patient is a predisposing history of bladder cancer x2 with 3 bladder surgeri es, patient reports ureteral reflux secondary to damage from bladder surgery and BPH requiring self catheterization 6 times daily. -patient has had recurrent urinary tract infections last occurrence was sent from July were culture identified multidrug resistant E coli with sensitivity to meropenem ertapenem Zosyn and nitrofurontin. -patient was seen by Dr. agustin tell his PCP yesterday and prescribed ciprofloxacin with 1 dose taken. Patient experienced crescendo fevers reaching 103 today and development of low back pain. -WBCs are 7.7 with elevated neutrophils at 83.5 %, procalcitonin 0.53, urin alysis with cloudy urine, 2+ protein, 2+ leukocyte esterase, positive for wbc's and moderate bacteria and negative for nitrates, reflex to culture. -creatinine is mildly elevated over baseline at 1.2 prior creatinine was 1.07 on 10/16/2019. -ordered Zosyn 3.375 g IV every 6 hours, 1st dose given in the ER. -ordered Tylenol 650 mg every 4 hours as needed for fever. -will obtain renal ultrasound to evaluate both pyelonephritis and obstructive uropathy. -will follow CBC and procalcitonin. 2. Benign prostatic hypertrophy, chronic, stable. -patient has been self catheterizing 6 times daily, and is taking tamsulosin 0.4 mg daily. Ordered finasteride 5 mg daily at bedtime. -Melo catheter has been placed to reduce risk of ureteral reflux. 3. Hypertension, chronic, stable -blood pressure on arrival to the ER is 152/66. -will continue home regimen of carvedilol the 3.125 mg twice daily diltiazem 240 mg twice daily, hydralazine 50 mg 3 times daily and irbesartan 300 mg daily. 4. Central sleep apnea, chronic, stable. -patient has undergone sleep study and has been prescribed BiPAP for central sleep apnea. -requested RT to consult, evaluate and treat. -patient may use own BiPAP machine. 5. Hyperlipidemia, chronic, stable -will continue patient's home regimen of rosuvastatin 2.5 mg daily 6. History of severe aortic stenosis, status post TAVR, chronic, stable. -patient denies chest pain or shortness of breath. -breath sounds are clear with a 2/6 murmur. -stable condition 7. Bladder cancer, chronic, stable -patient transurethral resection of bladder tumor, underwent 3 surgeries 2 for tumor resection, 1 found to be scar tissue -patient underwent chemotherapy instilled into the bladder which completed in August 2019. -no evidence recurrence. VTE prophylaxis: Bilateral SCDs, heparin. IV fluid: Saline lock Diet: Heart healthy Code status: FULL CODE The patient is admitted to the hospital due to the severity of symptoms requiring IV antibiotics for multidrug resistant acute cystitis. The patient is admitted inpatient status with expected length of stay to be greater than 2 midnights. COVID-19 COVID-19 status: Negative Result date/Date tested (Pos, Neg/Pending): 11/08/19 Scores GCS Geni coma scale eye opening: Spontaneous Geni coma scale verbal response: Orientated [place] coma scale motor response: Obey commands Geni coma scale total score: 15
[2019-11-08 23:01] LABS: Magnesium 2.1 mg/dL (1.6-2.3)
[2019-11-09] VITALS (9 sets, daily range): BP systolic 142–153; BP diastolic 67–73; PULSE 60–92; RESP 16–19; TEMP 36.8–37.8; O2SAT 92–96
--- NOTE | 2019-11-09 01:10 | PC.NURSE ---
0015 Patient seen and assessed. Is alert and oriented. Breath sounds CTA with sat of 93% using home bipap with 1.5L oxygen bled in; on continuous oximetry. HRR; telemetry reading was SR w/BBB. Denies nausea. BT present and abdomen is soft. Indwelling catheter is patent; urine is pale yellow, clear. Is able to turn himself in bed. Gait not assessed at this time but reports he is steady and has had no falls in past 3 months. Denies pain. Is afebrile. Wearing bilateral calf SCD's. rooming in. Fall risk score is moderate and patient verbalizes he will call prior if needing to get out of bed.
[2019-11-09] MEDS: PIPERACILLIN-TAZO 3.375 GM/50 ML FROZ.PIGGY IV (02:28)
[2019-11-09] MEDS: SODIUM CHLORIDE 0.9% 250 ML 21 ML IV (02:28)
[2019-11-09] MEDS: SODIUM CHLORIDE 0.9% FLUSH 10 ML IV ×3 (02:28→21:06)
[2019-11-09 05:12] LABS: Add Manual Diff / Slide Review NO; Basophils Absolute Auto 100 /uL (0-100); Basophils Percent Auto 1.2 % (0-2); Eosinophils Absolute Auto 100 /uL (0-450); Eosinophils Percent Auto 2.1 % (2-4); Hematocrit 41.2 % (41-53); Hemoglobin 13.5 g/dL (13.5-17.5); Lymphocytes Absolute Auto 700 /uL (1100-4500); Lymphocytes Percent Auto 12.2 % (25-40); Mean Corpuscular HGB Conc 32.8 % (30-36); Mean Corpuscular Hemoglobin 28.6 PG (26-34); Mean Corpuscular Volume 87.2 fL (80-100); Monocytes Absolute Auto 600 /uL (0-900); Monocytes Percent Auto 10.5 % (3-14); Neutrophils Absolute Auto 4500 /uL (1500-7000); Platelet Count 177 X10^3/uL (150-400); Red Blood Cell Count 4.73 X10^6/uL (4.5-5.9); Red Cell Distribution Width 14.8 % (11.6-14.8)
[2019-11-09 05:19] LABS: Blood Urea Nitrogen 16 mg/dL (9-20); Carbon Dioxide 27 mmol/L (22-32); Chloride 104 mmol/L (98-107); Estimated Glomerular Filt Rate > 60.0 mL/min (>60); Glucose 133 mg/dL (80-110); HEMOLYSIS < 15 (0-50); Potassium 3.9 mmol/L (3.4-5.1); Sodium 140 mmol/L (137-145)
[2019-11-09 05:26] LABS: Hemoglobin A1C% w Est Avg Glu 6.3 % (4.0-6.0)
[2019-11-09 05:47] LABS: Procalcitonin 0.43 ng/mL (<0.5)
--- NOTE | 2019-11-09 07:27 | PM.PN.1 ---
Subjective Subjective Date Patient Seen: 11/09/19 Interval history: Tim Perez is an 79-year-old male with a past medical history significant for bladder cancer with 1 recurrence, status post tumor resection x 3 and bladder chemotherapy completed in August of 2019, benign prostatic hypertrophy with urinary retention and self catheterization 6 times a day,severe aortic stenosis status post TAVR, hypertension, central sleep apnea on BiPAP and morbid obesity who presented to the ED with complaints of fevers and urinary tract symptoms for 2 days. The patient is resting in bed comfortably. He reports he feels significantly better than yesterday. His fever and chills have resolved. He has no flank, CVA or suprapubic pain. He does endorse mild back pain due to the hospital bed and generalized weakness that is improving with treatment of UTI. He has no other complaints and denies headache, shortness of breath, chest pain, abdominal pain, nausea, vomiting, fever, chills, dysuria, diarrhea or constipation. He is voiding via Melo catheter without difficulty and plan to remove and continue self catheterizations. He has not had a bowel movement since yesterday prior to admission and an as-needed bowel regimen is in place. He is up ambulating with assistance. Exam Vital Signs (past 8 hours): - 11/08/19 23:50 11/09/19 03:37 Temperature 98.0 F 98.7 F Pulse Rate 63 60 Respiratory Rate 18 18 Blood Pressure 140/70 145/71 H Pulse Oximetry 93 96 Oxygen Delivery Method BiPAP Oxygen Flow Rate 1.5 Narrative Exam Narrative: General: Elderly male lying in bed in no acute distress, well-developed, well-nourished, appropriately interactive. HEENT: Normocephalic, atraumatic. External ears without defect. Pupils equal, round, and reactive to light. Anicteric sclerae, moist conjunctivae, and no lid lag. Oropharynx free of erythema and cobble stoning with moist mucosa. Neck: Supple with full range of motion. No jugular venous distension. No bruits. No lymphadenopathy or thyromegaly. Cardiovascular: Regular rate and rhythm without murmurs, rubs, or gallops appreciated. Pulmonary: Clear to auscultation bilaterally without crackles, wheezes, or rhonchi. Normal respiratory effort with no use of accessory muscles. Abdomen: Soft, obese, bowel sounds present, nontender, nondistended. No suprapubic, CVA or flank tenderness. No hepatosplenomegaly or masses appreciated. Genitourinary: Melo catheter in place. Extremities: No clubbing, cyanosis, or edema. Mild discoloration of right leg likely due to venous stasis dermatitis versus reported previous cellulitis. Skin: Normal temperature, turgor, and texture; no rash, ulcers, or subcutaneous nodules appreciated. Neurological: Cranial nerves grossly intact. Generalized weakness without focal neurological deficit. Psychiatric: Normal mood and affect. Alert and oriented to person, place, and time. Objective Labs Result Diagrams: 11/09/19 04:50 11/09/19 04:50 Labs: Laboratory Results - last 24 hr 11/08/19 11/08/19 11/08/19 19:30 20:05 20:05 WBC 7.7 RBC 4.41 L Hgb 12.7 L Hct 38.0 L MCV 86.3 MCH 28.8 MCHC 33.4 RDW 14.4 Plt Count 187 Neut % (Auto) 83.5 H Lymph % (Auto) 5.9 L [place] % (Auto) 9.2 Eos % (Auto) 0.5 L Baso % (Auto) 0.9 Neut # (Auto) 6400 Lymph # (Auto) 500 L [place] # (Auto) 700 Eos # (Auto) 0 Baso # (Auto) 100 Sodium Potassium Chloride Carbon Dioxide BUN Creatinine Estimated GFR BUN/Creatinine Ratio Glucose Hemoglobin A1c Lactate Calcium Magnesium Total Bilirubin AST ALT Alkaline Phosphatase Total Protein Albumin Globulin Albumin/Globulin Ratio Procalcitonin 0.53 H Urine Color Yellow Urine Appearance Sl cloudy Urine pH 6.0 Ur Specific [place] 1.010 Urine Protein 2+ H Urine Glucose (UA) Negative Urine Ketones Negative Urine Occult Blood Trace-lysed Urine Nitrate Negative Urine Bilirubin Negative Urine Urobilinogen 0.2 Ur Leukocyte Esterase 2+ H Urine RBC 0-1/hpf Urine WBC 10-30/hpf H Ur Squamous Epith Cells 0-1 /hpf Urine Bacteria Moderate (10-30) H Ur Culture Indicated? Specimen cultured COVID-19 PCR 11/08/19 11/08/19 11/08/19 20:05 20:05 20:05 WBC RBC Hgb Hct MCV MCH MCHC RDW Plt Count Neut % (Auto) Lymph % (Auto) [place] % (Auto) Eos % (Auto) Baso % (Auto) Neut # (Auto) Lymph # (Auto) [place] # (Auto) Eos # (Auto) Baso # (Auto) Sodium 135 L Potassium 3.4 Chloride 101 Carbon Dioxide 27 BUN 19 Creatinine 1.22 Estimated GFR 57.0 L BUN/Creatinine Ratio 15.6 Glucose 148 H Hemoglobin A1c Lactate 0.8 Calcium 9.0 Magnesium 2.1 Total Bilirubin 0.6 AST 21 ALT 20 Alkaline Phosphatase 59 Total Protein 6.9 Albumin 3.8 Globulin 3.1 Albumin/Globulin Ratio 1.2 Procalcitonin Urine Color Urine Appearance Urine pH Ur Specific [place] Urine Protein Urine Glucose (UA) Urine Ketones Urine Occult Blood Urine Nitrate Urine Bilirubin Urine Urobilinogen Ur Leukocyte Esterase Urine RBC Urine WBC Ur Squamous Epith Cells Urine Bacteria Ur Culture Indicated? COVID-19 PCR 11/08/19 11/09/19 11/09/19 20:15 04:50 04:50 WBC 6.0 RBC 4.73 Hgb 13.5 Hct 41.2 MCV 87.2 MCH 28.6 MCHC 32.8 RDW 14.8 Plt Count 177 Neut % (Auto) 74.0 Lymph % (Auto) 12.2 L [place] % (Auto) 10.5 Eos % (Auto) 2.1 Baso % (Auto) 1.2 Neut # (Auto) 4500 Lymph # (Auto) 700 L [place] # (Auto) 600 Eos # (Auto) 100 Baso # (Auto) 100 Sodium 140 Potassium 3.9 Chloride 104 Carbon Dioxide 27 BUN 16 Creatinine 1.14 Estimated GFR > 60.0 BUN/Creatinine Ratio 14.0 Glucose 133 H Hemoglobin A1c Lactate Calcium 9.0 Magnesium Total Bilirubin AST ALT Alkaline Phosphatase Total Protein Albumin Globulin Albumin/Globulin Ratio Procalcitonin Urine Color Urine Appearance Urine pH Ur Specific [place] Urine Protein Urine Glucose (UA) Urine Ketones Urine Occult Blood Urine Nitrate Urine Bilirubin Urine Urobilinogen Ur Leukocyte Esterase Urine RBC Urine WBC Ur Squamous Epith Cells Urine Bacteria Ur Culture Indicated? COVID-19 PCR Negative 11/09/19 11/09/19 04:50 04:50 WBC RBC Hgb Hct MCV MCH MCHC RDW Plt Count Neut % (Auto) Lymph % (Auto) [place] % (Auto) Eos % (Auto) Baso % (Auto) Neut # (Auto) Lymph # (Auto) [place] # (Auto) Eos # (Auto) Baso # (Auto) Sodium Potassium Chloride Carbon Dioxide BUN Creatinine Estimated GFR BUN/Creatinine Ratio Glucose Hemoglobin A1c 6.3 H Lactate Calcium Magnesium Total Bilirubin AST ALT Alkaline Phosphatase Total Protein Albumin Globulin Albumin/Globulin Ratio Procalcitonin 0.43 Urine Color Urine Appearance Urine pH Ur Specific [place] Urine Protein Urine Glucose (UA) Urine Ketones Urine Occult Blood Urine Nitrate Urine Bilirubin Urine Urobilinogen Ur Leukocyte Esterase Urine RBC Urine WBC Ur Squamous Epith Cells Urine Bacteria Ur Culture Indicated? COVID-19 PCR Assessment & Plan Assessment & Plan narrative: Tim Perez is an 79-year-old male with a past medical history significant for bladder cancer with 1 recurrence, status post tumor resection x 3 and bladder chemotherapy completed in August of 2019, benign prostatic hypertrophy with urinary retention and self catheterization 6 times a day,severe aortic stenosis status post TAVR, hypertension, central sleep apnea on BiPAP and morbid obesity who presented to the ED with complaints of fevers and urinary tract symptoms for 2 days. 1. Acute cystitis, present on admission, active -Patient with history of bladder cancer status post 3 bladder surgeries and ureteral reflux secondary to damage from bladder surgery and BPH requiring self catheterization 6 times daily. Patient has history of recurrent UTI's with last July 2018 with MDR ESBL E. coli. -Patient was seen by PCP Dr. Cruz and prescribed ciprofloxacin and had taken 1 dose with crescendo fevers reaching 103? F, low back pain, and dysuria with catheterization. -Initial WBC 7.7 with 83.5% PMNs and procalcitonin 0.53. Continue to monitor WBC and procalcitonin daily which are trending down. -Urinalysis grossly infected with urine culture preliminarily with no growth which is likely due to patient being on antibiotics prior to collection. -Ordered renal ultrasound to evaluate for pyelonephritis and obstructive uropathy, pending. -Continue acetaminophen 650 mg every 4 hours as needed for fever or pain. -Received Zosyn 3.375 g in ED. Discontinued Zosyn as patient has had previous ESBL E. coli and started ertapenem 1 g daily pending urine culture identification and sensitivities. 2. Benign prostatic hypertrophy with LUTS and chronic urinary retention, present on admission. Stable. -Patient self catheterizes 6 times daily. Melo catheter is placed in ED and plan to remove and continue self-catheterizations. -Continue tamsulosin 0.4 mg daily and started and continue finasteride 5 mg daily at bedtime. 3. Hypertension, chronic, present on admission. Stable -Continue home carvedilol the 3.125 mg twice daily, diltiazem 240 mg twice daily, hydralazine 50 mg 3 times daily and irbesartan 300 mg daily. 4. Hyperlipidemia, chronic, stable -Continue home rosuvastatin 2.5 mg daily. 5. Central sleep apnea on BiPAP, chronic, present on admission. Stable. -Patient has undergone sleep study and has been on BiPAP for central sleep apnea. -Continue RT protocol for home BiPAP. 6. History of severe aortic stenosis status post TAVR. 7. History of bladder cancer, status post tumor resection and chemotherapy, resumed to be in remission. -Status post transurethral resection of bladder tumor (3 surgeries of which 2 were tumor resection and 1 found to be scar tissue) and chemotherapy instilled into the bladder which completed in August 2019. -No evidence recurrence. Code status: FULL CODE VTE prophylaxis: SQ heparin, SCDs Disposition: Patient will likely discharge home tomorrow pending urine culture results. Quality VTE Deep Vein Thrombosis/Pulmonary Embolism Present on Admission: No
[2019-11-09] MEDS: HYDRALAZINE 25 MG TABLET 50 MG PO ×3 (07:44→21:03)
[2019-11-09] MEDS: ERTAPENEM 1 GM in SODIUM CHLORIDE 0.9% 100 ML 200 ML IV (07:45)
[2019-11-09] MEDS: BISACODYL 5 MG TABLET 10 MG PO (07:45)
[2019-11-09] MEDS: HEPARIN 5,000 UNIT/ML VIAL 5000 UNIT SUBCUT ×2 (07:46→21:05)
[2019-11-09] MEDS: carvediloL 3.125 MG TABLET PO ×2 (08:23→21:04)
[2019-11-09] MEDS: IRBESARTAN 150 MG TABLET 300 MG PO (08:24)
[2019-11-09] MEDS: dilTIAZem CD 240 MG CAP PO ×2 (08:24→21:03)
--- NOTE | 2019-11-09 10:40 | DIET.PN ---
Addendum entered by Colleen Mireles 11/09/19 14:50: provided pt and his with handouts on preDM, carbohydrate counting information and carbohydrate goal levels. reiterated importance of regular joyful physical activity for weight management, healthy aging, and reducing risk of DM2. Pts already watches carbs and will manage for her as she is the cook and he manages his snacks. Original Note: Dietary Progress Note Assessment: 79y M admitted for UTI c fever referred to nutrition for morbid obesity (BMI 39.2) PMHx of bladder cancer c recurring UTIs, pt interested in being proactive with his health to minimize this complication if possible. Usual Day: B: 2 c coffee c /2+04/05, Love granola c 2% milk, fresh fruit no morning snacking L: ham and cheese sandwich on thin sliced [employer] bread in summer or homemade soup in winter c water to drink Sn: fruit (peach/watermelon) D: Homemade [place] food ( avoids too many carbs at one time, usually avoids rice, uses low carb tortillas) tacos, enchiladas, chile rellano, chile lokesh or salad c tuna or pork chops Sn: Skinny pop, ice cream Pt has 1 cocktail per evening, usually scotch c [place] or a severino Pt and his would regularly walk but after his chemotherapy treatments, pt has lower physical activity tolerance, pts believes this and the evening ice cream are contributing to his high body weight. They have handweights and equipment at home, desiring instruction for safe activity. HT: 180.3cm WT: 127.6kg UBW: 118kg BMI: 39.2 Labs: A1c 6.3 Nutrition Diagnosis: morbid obesity and preDM r/t physical inactivity and undesirable food choices aeb pt is +10kg from before bladder ca tx, pt has reduced mobility, pt diet is good with a few areas for improvement. Interventions: 1. Discussed smaller ice cream servings and to limit toppings, encouraged continued home preparation of foods and carb consistency. 2. Recc PT for pt as his morbid obesity would be greatly helped by safe home exercise routine.
--- NOTE | 2019-11-09 11:30 | PT.IIE ---
Current Diagnoses Morbid (severe) obesity due to excess calories (11/08/19) Urinary tract infection, site not specified (11/08/19) Other fatigue (11/08/19) Surgical History (Last Updated 11/08/19 @ 23:56 by LUIS ALFREDO Delarosa) History of bladder surgery (Acute) S/P TAVR (transcatheter aortic valve replacement) (Chronic) Medical History (Last Updated 11/08/19 @ 23:56 by LUIS ALFREDO Delarosa) Aortic stenosis (Acute) Bladder cancer (Acute) BPH (benign prostatic hyperplasia) (Acute) Central sleep apnea (Chronic) Fatigue (Chronic) Heart disease (Acute) Hypertension (Chronic) Morbid obesity with body mass index of 40.0-49.9 (Chronic) Obstructive sleep apnea of adult (Chronic) Physical Therapy Inpatient Evaluation/Re-Eval M1 PT/OT-IP Prior Functional Status Start: 11/09/19 12:21 Freq: NEEDED Status: Active Protocol: Document 11/09/19 11:30 AB (Rec: 11/09/19 12:35 AB [facility]) Medical Review Prior Functional Status Medical History Reviewed Yes Communication able to make needs known Mobility and Gait pt stated that he is independent with all mobilities and ambulation without AD Social History Household Members spouse Living Arrangements House Number of Floors (Floors) One Floor Number of Stairs To Enter/Railing? 1 step to enter Home Environment High Toilet,Walk in Shower Home Equipment Straight Cane,Hand Held Shower Additional Social History Comment has a high bed M2 PT-IP Current Condition Start: 11/09/19 12:21 Freq: NEEDED Status: Active Protocol: Document 11/09/19 11:30 AB (Rec: 11/09/19 12:35 AB [facility]) Physical Therapy Current Condition Current Condition Evaluation Date 11/09/19 Treatment Diagnosis UTI; bladder CA; generalized weakness Onset Date 11/08/19 M3 PT-IP Subjective Start: 11/09/19 12:21 Freq: NEEDED Status: Active Protocol: Document 11/09/19 11:30 AB (Rec: 11/09/19 12:35 AB [facility]) Subjective Physical Therapy Visit Type Type Initial Evaluation Visit Start Time 11:30 Visit Stop Time 12:13 Total Visit Minutes 43 Number of ARCHIVAL STUDIES PROFESSOR Visits 0 Physical Therapy Visit Comments Patient Comments pt is agreeable to do PT Therapy Pain Assessment Pain Present Pain Present Denied Pain M4 PT-IP Mobility and Gait Start: 11/09/19 12:21 Freq: NEEDED Status: Active Protocol: Document 11/09/19 11:30 AB (Rec: 11/09/19 12:35 AB [email or web address]) PT-Bed Mobility Assessment Supine to Sit Supine to Sit Maximum Assistance,1 Person Assistance PT-Transfer Assessment Sit to and From Stand Sit to and from Stand Contact Guard Assistance Equipment Transfer Assistive Device Gait Belt,Front Wheeled Walker Orthotic/Prosthetic Devices or Brace: No Transfers Transfer Destination Chair Transfer Technique ambulated using FWW Transfer Ability Level of Assist Contact Guard Assistance Comments Mobility Comments pt stated that he has a high bed and tends to slide down and on EOB upon sitting. pt stated that he usually uses BLE momentum ( mariia knife) to bring trunk up and unable to control and will tend to slide down on the bed. pt educated on leaning forward when that happens. educated on log roll supine <>sit for better control with bed mobility. pt is agreeable to try. completed supine to sit log roll max A and cues. pt required SBA for sitting on EOB. pt stated that he wants to practice more of bed mobility during hospital stay. completed sit to stand CGA and ambulated in room using FWW ~ 40 ft CGA. pt sat on chair and set up for lunch. call light and table placed within reach. Left pt with spouse in room. Gait Assessment Gait Gait Assistance Required: Contact Guard Assist Distance (Feet) 40 Able to Maintain Weight Bearing Status Yes During Gait Assistive Devices Assistive Device Gait Belt,Front Wheeled Walker Orthotic/Prosthetic Devices or Brace: No Gait Deviations General Gait Pattern Antalgic,Decreased Stride Length,Decreased Feet Clearance Factors Limiting Gait Function Factors Limiting Gait Function Decreased Activity Tolerance, Poor Balance PT-Balance Assessment Sitting Balance and Reactions Static Sitting Balance Ability Good Dynamic Sitting Balance Ability Good Standing Balance and Reactions Static Standing Balance Ability Fair Dynamic Standing Balance Ability Fair Device Used FWW M5 PT-IP Objective Assessments Start: 11/09/19 12:21 Freq: NEEDED Status: Active Protocol: Document 11/09/19 11:30 AB (Rec: 11/09/19 12:35 AB [id number]) Orientation Orientation/Cognition Level of Alertness Alert Orientation Name,Age,Birthday,Month,Date, Year,Day of Week,Place, Situation Safety Awareness Understands Safety Issues Memory Description No Deficits Noted Gross Range of Motion Lower Extremity ROM Assessment Within Functional Limits Strength Lower Extremity Strength Assessment Within Functional Limits Coordination Assessment Gross Coordination Gross Coordination WNL Sensation Assessment Sensation Gross Sensation WNL Muscle Tone Muscle Tone WNL Yes M6 PT-IP Treatment Start: 11/09/19 12:21 Freq: NEEDED Status: Active Protocol: Document 11/09/19 11:30 AB (Rec: 11/09/19 12:35 AB [email or web address]) Physical Therapy Treatment Education Education Provided Safety M7 PT-IP Assessment and Plan Start: 11/09/19 12:21 Freq: NEEDED Status: Active Protocol: Document 11/09/19 11:30 AB (Rec: 11/09/19 12:35 AB [id number]) PT Summary Assessment and Plan Potential Rehabilitation Potential Good Status of Condition at Evaluation Stable Summary Impairments Pain,ROM,Strength,Balance,Bed Mobility,Transfers,Gait, Activity Tolerance Assessment Summary pt requiring max A with bed mobility, CGA with transfers and ambulation using FWW. pt plans to go home with spouse to assist him. will continue PT during hospital stay for improving bed mobility, transfer and ambulation without AD. will also conduct stair climbing training prior to d/c. Goals Bed Mobility Goal Independent Transfer Goal Independent,Front Wheeled Walker Gait Goal Independent,Front Wheel Walker Gait Distance 150 Other Goals improve ambulation SPC/ without AD mod I will be able to complete up/ down 1 step SBA Days to Meet Goals 5 Frequency of Treatment Frequency Of Treatment Once a Day Treatment Plan Physical Therapy Treatment Plan Bed Mobility Training,Transfer Training,Gait Training, Therapeutic Exercise,Balance Retraining,Discharge Planning, Neuromuscular Re-ed Recommendations To Nursing Amount of Assist Needed 1 Person Assist Discharge Recommendations PT Discharge Recommendations Home with Assistance Equipment Needed for Home Before FWW if not safe with SPC/ Discharge without AD Transportation Needs at Discharge Private Vehicle
--- NOTE | 2019-11-09 12:57 | CM.IDA ---
Initial DCP Assessment Note Patient is an 79 yo male, resident of [place]. Patient presents w/ UTI, h/o bladder CA. PCP: Dr Cruz Payer: LALITO/BAILEE Met w/patient and spouse this morning, introduced HOUSEKEEPER SUPERVISOR role. Patient is indp at baseline and so is spouse. Patient wonders if he could be doing anything differently to prevent bladder infections (?) Dr Venegas suggests patient is likely pre-disposed d/t h/o bladder cancer and treatment. Patient and spouse agree that patient will return home upon medical clearance, they anticipate no needs from this HOUSEKEEPER SUPERVISOR. Therapy has cleared patient for return home, still pending is stair training. P: DC expected w/in 24 hrs, home w/family via private auto and po meds. MARTHA Nunez Discharge Planning/Care Management CM Discharge Assessment Start: 11/09/19 12:55 Freq: Status: Active Protocol: Document 11/09/19 12:55 CLIFF (Rec: 11/09/19 12:57 CLIFF [id number]) Discharge Planning Assessment Assigned Quality Rep MARTHA Jacobson DPOA/Assigned Designee Name Snehal Perez, spouse Contact Information [phone], home , cell Advance Directives? Yes History Provided By Patient,Significant Other Prior Living Arrangements House Household Members spouse Type of transporation used prior to Drives own vehicle admit Independent with ADL's Yes Is patient alert and oriented? Yes Barriers to Discharge No Discharge Plan Home Transportation Arrangement Family Referrals Initiated None needed
[2019-11-09] MEDS: FINASTERIDE 5 MG TABLET PO (21:03)
[2019-11-09] MEDS: ROSUVASTATIN 10 MG TABLET 2.5 MG PO (21:04)
--- NOTE | 2019-11-09 21:55 | PC.NURSE ---
Sat down with patient and to assess how patient straight caths himself and his technique and how well he follows sterile procedure. Nurse asked patient to prepare his straight cath as he would normally to cath himself. Patient was noted to be making mult. mistakes in trying to maintain proper sterility with the cath. Patient was noted to allowing cath to touch, counter tops, was running fingers down the whole length of cath to lather in lubricant for insertion. Nursing education done regarding proper handling and lubricating of cath while maintaining proper sterility to the best of his ability. I encouraged patient to at least were one clean glove in addition to doing really good hand washing prior to cathing himself. Patient was hesitant at first but agreeable to plan. Sterile practice was performed mult time, using the same cath without inserting actual cath in. Patient and spouse at bedside were extremely appreciative of teaching and I feel that they both really retained alot. Patient was able to verbally recap everything reveiwed with this nurse asked.
[2019-11-10 00:54] VITALS: BP 139/70; PULSE 60; RESP 18; TEMP 36.5; O2SAT 93
--- NOTE | 2019-11-10 03:19 | PC.NURSE ---
Patient is alert and oriented. Breath sounds CTA; on home bipap w/oxygen bled in at 1.5L/min with sat of 93%; is on continuous oximetry. HRR. Denies nausea. BT present and abdomen is soft. Catheter d'cd yesterday and has been doing self catheterization; denies any dysuria which was present prior to hospitalization. Able to turn himself in bed. Gait not assessed. Wearing bilateral calf SCD's. Denies pain. rooming in. Fall risk score is moderate; verbalizes understanding not to get out of bed without assistance.
[2019-11-10 05:26] VITALS: BP 141/75; PULSE 60; RESP 18; TEMP 36.5; O2SAT 95
[2019-11-10 07:44] VITALS: BP 146/71; PULSE 67; RESP 18; TEMP 36.7; O2SAT 93
[2019-11-10 08:11] VITALS: BP 146/71
[2019-11-10] MEDS: carvediloL 3.125 MG TABLET PO (08:11)
[2019-11-10] MEDS: ERTAPENEM 1 GM in SODIUM CHLORIDE 0.9% 100 ML 200 ML IV (08:11)
[2019-11-10 08:12] VITALS: BP 146/71
[2019-11-10] MEDS: BISACODYL 5 MG TABLET 10 MG PO (08:12)
[2019-11-10] MEDS: HYDRALAZINE 25 MG TABLET 50 MG PO (08:12)
[2019-11-10] MEDS: HEPARIN 5,000 UNIT/ML VIAL 5000 UNIT SUBCUT (08:13)
[2019-11-10] MEDS: IRBESARTAN 150 MG TABLET 300 MG PO (08:13)
[2019-11-10] MEDS: ASPIRIN EC 81 MG TABLET PO (08:13)
[2019-11-10] MEDS: SODIUM CHLORIDE 0.9% FLUSH 10 ML IV (08:19)
[2019-11-10] MEDS: dilTIAZem CD 240 MG CAP PO (08:27)
[2019-11-10 09:47] LABS: Add Manual Diff / Slide Review NO; Basophils Absolute Auto 100 /uL (0-100); Basophils Percent Auto 1.3 % (0-2); Eosinophils Absolute Auto 300 /uL (0-450); Eosinophils Percent Auto 4.5 % (2-4); Hematocrit 41.7 % (41-53); Hemoglobin 13.7 g/dL (13.5-17.5); Lymphocytes Absolute Auto 1000 /uL (1100-4500); Lymphocytes Percent Auto 16.6 % (25-40); Mean Corpuscular HGB Conc 32.8 % (30-36); Mean Corpuscular Hemoglobin 28.6 PG (26-34); Monocytes Absolute Auto 600 /uL (0-900); Monocytes Percent Auto 10.7 % (3-14); Neutrophils Absolute Auto 3900 /uL (1500-7000); Neutrophils Percent Auto 66.9 % (50-75); Platelet Count 203 X10^3/uL (150-400); Red Blood Cell Count 4.79 X10^6/uL (4.5-5.9); Red Cell Distribution Width 14.4 % (11.6-14.8); White Blood Cell Count 5.9 X10^3/uL (4.5-11.0)
[2019-11-10 10:41] LABS: Procalcitonin 0.25 ng/mL (<0.5)
--- NOTE | 2019-11-10 10:47 | PT.IPTN ---
Current Diagnoses Morbid (severe) obesity due to excess calories (11/08/19) Urinary tract infection, site not specified (11/08/19) Other fatigue (11/08/19) Physical Therapy Treatment Note M2 PT-IP Current Condition Start: 11/09/19 12:21 Freq: NEEDED Status: Active Protocol: Document 11/09/19 11:30 AB (Rec: 11/09/19 12:35 AB [email or web address]) Physical Therapy Current Condition Current Condition Evaluation Date 11/09/19 Treatment Diagnosis UTI; bladder CA; generalized weakness Onset Date 11/08/19 M3 PT-IP Subjective Start: 11/09/19 12:21 Freq: NEEDED Status: Active Protocol: Document 11/10/19 09:40 LJ (Rec: 11/10/19 10:47 LJ [id number]) Subjective Physical Therapy Visit Type Type Treatment Note Visit Start Time 09:40 Visit Stop Time 10:06 Total Visit Minutes 34 Notes in room with pt Physical Therapy Visit Comments Patient Comments pt is agreeable to do PT Therapy Pain Assessment Pain Present Pain Present Denied Pain M4 PT-IP Mobility and Gait Start: 11/09/19 12:21 Freq: NEEDED Status: Active Protocol: Document 11/10/19 09:40 LJ (Rec: 11/10/19 10:47 LJ [id number]) PT-Bed Mobility Assessment Rolling Type of Rolling Roll to Right Supine to Sit Supine to Sit Independent Sit to Supine Sit to Supine Independent PT-Transfer Assessment Sit to and From Stand Sit to and from Stand Independent Equipment Transfer Assistive Device Gait Belt Transfers Transfer Destination Bed,Chair Transfer Technique ambulated w/o AD Transfer Ability Level of Assist Independent Comments Mobility Comments MODELING INSTRUCTOR educated pt in proper logroll technique using right LE to brace against bed tor moving SL to sitting on edge of bed. Pt performed this maneuver x3 on float bed without using rails and had no problem. Was able to lift himself with little effort from his UEs. No heaving or using momentum. Pt sat squarely on side of bed without sliding off the side. No assistance needed. Gait Assessment Gait Gait Assistance Required: Standby Assistance Distance (Feet) 400 Able to Maintain Weight Bearing Status Yes During Gait Assistive Devices Assistive Device None,Gait Belt Orthotic/Prosthetic Devices or Brace: No Gait Deviations General Gait Pattern Decreased Feet Clearance Factors Limiting Gait Function Factors Limiting Gait Function Decreased Activity Tolerance, Decreased Strength Stair Climbing Assessment Evaluation Level of Assist On Stairs Independent,Standby Assistance Devices Stair Climbing Assistive Devices None Technique/Endurance Stair Climbing Direction Ascend and Descend Stair Climbing Technique Step to Step Number of Steps Climbed 3 Stair Climbing Set # Repetitions (reps) 2 Comments Stair Climbing Comments pt able to safely ascend and descend stairs with step to gait without using rails. M5 PT-IP Objective Assessments Start: 11/09/19 12:21 Freq: NEEDED Status: Active Protocol: Document 11/09/19 11:30 AB (Rec: 11/09/19 12:35 AB [email or web address]) Orientation Orientation/Cognition Level of Alertness Alert Orientation Name,Age,Birthday,Month,Date, Year,Day of Week,Place, Situation Safety Awareness Understands Safety Issues Memory Description No Deficits Noted Gross Range of Motion Lower Extremity ROM Assessment Within Functional Limits Strength Lower Extremity Strength Assessment Within Functional Limits Coordination Assessment Gross Coordination Gross Coordination WNL Sensation Assessment Sensation Gross Sensation WNL Muscle Tone Muscle Tone WNL Yes M6 PT-IP Treatment Start: 11/09/19 12:21 Freq: NEEDED Status: Active Protocol: Document 11/10/19 09:40 DAYSI (Rec: 11/10/19 10:47 [id number]) Physical Therapy Treatment Education Education Provided Safety Other Treatments Other Treatment Performed demonstrated seated crunches, bridging, standing bird dog against wall, mini squats, calf raises, and heel raises for addidional exercises to do at home. M7 PT-IP Assessment and Plan Start: 11/09/19 12:21 Freq: NEEDED Status: Active Protocol: Document 11/10/19 09:40 DAYSI (Rec: 11/10/19 10:47 [id number]) PT Summary Assessment and Plan Potential Rehabilitation Potential Good Status of Condition at Evaluation Stable Summary Impairments ROM,Strength,Balance,Activity Tolerance Assessment Summary Pt performed logrolling very well needing no assist once he got the technique correct. Ambulated in hallway SBA without AD and no LOB ~400 to stairs and back to room. He is doing much better and has met all goals from PT. He is safe for discharge home with . Goals Bed Mobility Goal Independent Transfer Goal Independent Gait Goal Independent Gait Distance 150 Days to Meet Goals 5 Frequency of Treatment Frequency Of Treatment Once a Day Recommendations To Nursing Amount of Assist Needed 1 Person Assist Discharge Recommendations PT Discharge Recommendations Home with Assistance, Outpatient PT Transportation Needs at Discharge Private Vehicle
--- NOTE | 2019-11-10 11:24 | PM.DS.1 ---
History of Present Illness History of Present Illness Date Patient Seen: 11/08/19 Chief complaint: fever Narrative: Written by Favian LOBATO: Mr. Tim Perez is an 79-year-old male with history significant for bladder cancer with 1 recurrence, status post bladder chemotherapy completed in August of 2019, benign prostatic hypertrophy for which the patient self catheterizes 6 times per day, severe aortic stenosis status post TAVR, hypertension, fatigue, central sleep apnea and morbid obesity who presents to the ER with complaints of fevers and urinary tract symptoms for 2 days. Patient reports having fevers with shaking chills that began 2-3 days ago before managed with Tylenol and resolved but developed a fever up to 103 at home today. He further reports urethral burning on catheterization, generalized weakness and complaints of low back pain. The patient was seen by Dr. Cruz, his primary care provider, who obtained a urine sample and started the patient on ciprofloxacin of which the patient has taken a single dose this morning. The patient has had prior urinary tract infections the last being July 20, 2019 were culture revealed multidrug resistant E coli that was treated 2 weeks of IV ertapenem. The patient reports no complaints recent illness or known COVID-19 exposures. Chemotherapy for his bladder was sewed tract installation into the bladder during which time he developed fatigue and weakness which has been slowly resolving since termination a chemotherapy. He denies visual changes nasal congestion or sore throat. He has no complaints of chest pain or palpitations. He denies complaints of shortness of breath and has had no cough. He has central sleep apnea is undergone sleep studies using home BiPAP. He denies complaints of epigastric or abdominal pain, no nausea or vomiting. He reports moving his bowels daily though describes some is large and hard. Upon arrival to the ER the patient is febrile with temperature of 101.6?, heart rate of 87, blood pressure 152/66, respirations of 16 saturating 93% on room air. Chest x-rays obtain finds no acute cardiopulmonary processes, TAVR implanted. On laboratory analysis the patient has white count of 7.7 with elevated neutrophils at 83.5%, hemoglobin 12.7, hematocrit of 38.0 platelets 187. His electrolytes home within normal range and has a BUN of 19 and a creatinine of 1.22. His nonfasting glucose is 148. His liver functions all within normal range and has albumin of 3.8. His lactic acid is 0.8 and procalcitonin is 0.53. On urinalysis is urine is cloudy with a specific gravity of 1.010, with 2+ protein, 2+ leukocyte as stress, positive for wbc's and moderate bacteria, negative nitrites and reflexed to culture. In the ER the patient received Tylenol with affective reduction of temperature, normal saline 1 L, blood cultures are drawn and patient received initial dose of Zosyn 3.375 g IV. The patient is admitted to the medicine service for acute cystitis. Primary care provider: Dr. Cruz Urology: Dr. Baker, [facility] Discharge Providers Provider Date of admission: 11/08/19 22:15 Discharge Date: 11/10/19 Primary care physician: Keshawn Cruz MD Consults: 11/08/19 22:07 Consult to Dietitian, Adult Routine Comment: Reason For Exam: Morbid obesity Consult to Discharge Planning Routine Comment: 11/08/19 22:09 Consult to Respiratory Therapy Evaluate & Treat Comment: Central sleep apnea uses BiPAP may use own equipme Physician Instructions: Evaluate and treat 11/09/19 10:59 Consult to Physical Therapy Evaluate & Treat Comment: Physician Instructions: Evaluate and Treat Discharge provider: Keyanna Venegas DO Summary Hospital Course Discharge Diagnosis: 1. Acute UTI, present on admission. Resolved. 2. Benign prostatic hypertrophy with LUTS and chronic urinary retention, present on admission. Stable. 3. Hypertension, chronic, present on admission. Stable. 4. Hyperlipidemia, chronic, present on admission. Stable. 5. Central sleep apnea on BiPAP, chronic, present on admission. Stable. 6. History of severe aortic stenosis status post TAVR. Stable. 7. History of bladder cancer, status post tumor resection and chemotherapy, presumed to be in remission. Hospital Course: Tim Perez is an 79-year-old male with a past medical history significant for bladder cancer with 1 recurrence, status post tumor resection x 3 and bladder chemotherapy completed in August of 2019, benign prostatic hypertrophy with urinary retention and self catheterization 6 times a day,severe aortic stenosis status post TAVR, hypertension, central sleep apnea on BiPAP and morbid obesity who presented to the ED with complaints of fevers and urinary tract symptoms for 2 days. 1. Acute UTI, present on admission. Resolved. -Patient with history of bladder cancer status post 3 bladder surgeries and ureteral reflux secondary to damage from bladder surgery and BPH requiring self catheterization 6 times daily. Patient has history of recurrent UTI's with last July 2018 with MDR ESBL E. coli. -Patient was seen by PCP Dr. Cruz and prescribed ciprofloxacin and had taken 1 dose with crescendo fevers reaching 103? F, low back pain, and dysuria with catheterization. -Initial WBC normal at 7.7 with 83.5% PMNs and procalcitonin slightly elevated at 0.53 and trended down to normal at 0.25. Continued to monitor WBC and procalcitonin daily. -Urinalysis appeared grossly infected, however, urine culture had no growth due to the patient being on antibiotics prior to collection. The patient's outpatient urine culture from PCP was not labeled with name which delayed plating and is pending at [facility] in [place]. -Renal ultrasound ruled out pyelonephritis or nephrolithiasis with obstructive uropathy/hydronephrosis. Noted, lobulated appearance of kidneys with areas of cortical thinning and scarring. Concern for right renal mass measuring 2.5 x 2.2 x 1.8 cm which could represent lobulation as no lesion is seen on the [address] with IV contrast for further evaluation of possible right renal mass (Consider renal protocol CT or IVP) per PCP or urologist. -Continued acetaminophen 650 mg every 4 hours as needed for fever or pain. -Received Zosyn 3.375 g x 2 doses then switched to ertapenem 1 g daily as patient has history of ESBL E. coli UTI and then given single dose of fosfomycin 3 g to complete antibiotic treatment for possible MDR UTI (as urine culture had no growth due to previous antibiotic administration as above). 2. Benign prostatic hypertrophy with LUTS and chronic urinary retention, present on admission. Stable. -Patient self catheterization 6 times daily. Melo catheter was placed in ED for unclear reasons and removed on the floor. Patient continued self catheterization and recommended he base the frequency of self catheterization on physiological quantity of urine 400-600 mL. Requested nursing staff to assess self catheterization and teach proper technique and hygiene care. -Started and continued finasteride 5 mg daily at bedtime. 3. Hypertension, chronic, present on admission. Stable. -Continued home carvedilol the 3.125 mg twice daily, diltiazem 240 mg twice daily, hydralazine 50 mg 3 times daily and irbesartan 300 mg daily. 4. Hyperlipidemia, chronic, present on admission. Stable. -Continued home rosuvastatin 2.5 mg daily. 5. Central sleep apnea on BiPAP, chronic, present on admission. Stable. -Patient has undergone sleep study and has been on BiPAP for central sleep apnea. -Continued RT protocol for home BiPAP. 6. History of severe aortic stenosis status post TAVR. Stable. 7. History of bladder cancer, status post tumor resection and chemotherapy, presumed to be in remission. -Followed by urology at [facility], Dr. Baker. -Status post transurethral resection of bladder tumor (3 surgeries of which 2 were tumor resection and 1 found to be scar tissue) and chemotherapy instilled into the bladder which completed in August 2019. -No evidence recurrence. -Continued self catheterization 3-6 times day as above. Exam Vital Signs (past 8 hours): - 11/10/19 05:26 11/10/19 07:44 11/10/19 08:11 Temperature 97.7 F 98.0 F Pulse Rate 60 67 Respiratory Rate 18 18 Blood Pressure 141/75 H 146/71 H 146/71 H Pulse Oximetry 95 93 11/10/19 08:12 Temperature Pulse Rate Respiratory Rate Blood Pressure 146/71 H Pulse Oximetry Oxygen Delivery Method BiPAP Oxygen Flow Rate 0 Narrative Exam Narrative: General: Elderly male lying in bed in no acute distress, well-developed, well-nourished, appropriately interactive. HEENT: Normocephalic, atraumatic. External ears without defect. Pupils equal, round, and reactive to light. Anicteric sclerae, moist conjunctivae, and no lid lag. Oropharynx free of erythema and cobble stoning with moist mucosa. Neck: Supple with full range of motion. No lymphadenopathy or thyromegaly. Cardiovascular: Regular rate and rhythm without murmurs, rubs, or gallops appreciated. Pulmonary: Clear to auscultation bilaterally without crackles, wheezes, or rhonchi. Normal respiratory effort with no use of accessory muscles. Abdomen: Soft, obese, bowel sounds present, nontender, nondistended. No suprapubic, CVA or flank tenderness. No hepatosplenomegaly or masses appreciated. Extremities: No clubbing, cyanosis, or edema. Mild discoloration of right leg likely due to venous stasis dermatitis versus reported previous cellulitis. Skin: Normal temperature, turgor, and texture; no rash, ulcers, or subcutaneous nodules appreciated. Neurological: Cranial nerves grossly intact. Psychiatric: Normal mood and affect. Alert and oriented to person, place, and time. Objective Labs Result Diagrams: 11/10/19 09:40 11/09/19 04:50 Labs: Laboratory Results - last 24 hr 11/10/19 11/10/19 09:40 09:40 WBC 5.9 RBC 4.79 Hgb 13.7 Hct 41.7 MCV 87.0 MCH 28.6 MCHC 32.8 RDW 14.4 Plt Count 203 Neut % (Auto) 66.9 Lymph % (Auto) 16.6 L [place] % (Auto) 10.7 Eos % (Auto) 4.5 H Baso % (Auto) 1.3 Neut # (Auto) 3900 Lymph # (Auto) 1000 L [place] # (Auto) 600 Eos # (Auto) 300 Baso # (Auto) 100 Procalcitonin 0.25 Discharge Plan Discharge Plan Patient Disposition: Home Discharge comment: You are being discharged home. You had a urinary tract infection and it is unclear which bacteria caused this infection as you were already on antibiotics when the urine culture was obtained in the emergency department. Your urinalysis and/or urine culture ordered by Dr. Cruz is still pending at [facility] in [place]. Your UTI has been completely treated with IV antibiotics and 1 dose of fosfomycin. Continue performing self catheterization 3 to 6 times a day. You want to be sure that you are getting physiological quantities of urine approximately 400-600 mL and if it is less than that amount you do not need to self catheterize as frequently. You have been prescribed finasteride 5 mg daily at bedtime to help with urinary retention related to enlarged prostate as this helps shrink the prostate over time. Please continue using good catheter hygiene as instructed by nursing. You are high risk of recurrent urinary tract infection due to your altered bladder anatomy and self catheterization. You may take MiraLax (osmotic laxative) 17 g daily (titrated to effect up to twice daily or as little as once a week) and Colace (stool softener) 100 mg twice daily to keep bowel movements regular and avoid constipation. Please follow-up with your primary care physician, Dr. Cruz, in the next 1 week regarding your hospitalization and recommend referral to outpatient physical therapy. Please keep your scheduled follow-up appointment with your urologist Dr. Baker and recommend a CT scan of your kidneys to assure that there is no mass in your right kidney and that this is just lobulation as previously seen. Discharge orders & Medications Prescriptions: New finasteride 5 mg Tablet 5 mg PO BEDTIME Qty: 30 RF: 0 polyethylene glycol 3350 [Miralax] 17 gram/dose powder 17 gram PO DAILY Qty: 238 RF: 0 docusate sodium [DOK] 100 mg Capsule 100 mg PO BID Qty: 60 RF: 0 Continued aspirin [Aspir-Low] 81 mg Tablet,Delayed Release (Dr/Ec) 81 mg PO DAILY Qty: 0 RF: 0 irbesartan [Avapro] 300 MG tablet 300 mg PO QDAY Qty: 0 RF: 0 diltiazem HCl 240 mg Capsule,Extended Release 24 Hr 240 mg PO BID Qty: 0 RF: 0 rosuvastatin 5 mg tablet 2.5 mg PO DAILY RF: 0 carvedilol 3.125 mg tablet 3.125 mg PO BID RF: 0 hydralazine 50 mg tablet 50 mg PO TID RF: 0 Follow up/Referrals: Keshawn Cruz MD [Primary Care Provider] - 1 Week Diet/Activity/Treatments Diet: Carb-consistent/Diabetic, Low-fat, Low-sodium and Low-cholesterol Catheter comment: Continue performing self catheterization 3 to 6 times a day Visit Report/Discharge Packet Instructions: How to Catheterize Yourself -- for Men, DI for Urinary Tract Infection (UTI), Polyethylene Glycol 3350, Finasteride Visit Report Forms: Patient Portal/API, Stroke Signs & Symptoms Discharge Data Primary Care Provider: Keshawn Cruz V Quality VTE Deep Vein Thrombosis/Pulmonary Embolism Present on Admission: No
[2019-11-10] MEDS: FOSFOMYCIN 3 GM PACKET PO (11:29)
[2019-11-10 11:40] VITALS: BP 137/72; PULSE 63; RESP 17; TEMP 36.5; O2SAT 92
--- NOTE | 2019-11-10 11:40 | OT.IPNOTE ---
requested OT eval in rounds via verbal order. Chart reviewed and discussed pt with P.T. who had just completed a session with pt. Per P.T., pt is progressing well and likely no OT needs at this time. Dr. Venegas present for this exchange with P.T. and agreeable to cancel plans for OT eval. As OT order was not yet entered into the computer system, no cancelation needed.
--- NOTE | 2019-11-10 12:01 | PC.NURSE ---
Discharge paper work reviewed with pt, discussed drinking plenty of fluids with meds to prevent constipation, hard copies of medications given to pt and spouse, pt will be discharged with all belongings and will be transferred via wheelchair by spouse.
== END 2019-11-10 12:42 | disposition home or self-care (01) | DRG 690 ==
LOC: ED 21:28 → AC 22:15
PROVIDERS: Internal Medicine; Admitting Provider Nurse Practitioner Adult Health; Emergency Provider Emergency Medicine; PCP Internal Medicine; Referring Provider Internal Medicine; Visit Provider Nurse Practitioner Adult Health
DX: N30.00 Acute cystitis without hematuria (principal); Z16.24 Resistance to multiple antibiotics; B96.29 Other Escherichia coli [E. coli] as the cause of diseases classified elsewhere; G47.31 Primary central sleep apnea; Z68.39 Body mass index [BMI] 39.0-39.9, adult; Z71.3 Dietary counseling and surveillance; N40.1 Benign prostatic hyperplasia with lower urinary tract symptoms; R33.8 Other retention of urine; Z95.2 Presence of prosthetic heart valve; I10 Essential (primary) hypertension; E66.01 Morbid (severe) obesity due to excess calories; E78.5 Hyperlipidemia, unspecified; N28.9 Disorder of kidney and ureter, unspecified; Z11.59 Encounter for screening for other viral diseases; Z85.51 Personal history of malignant neoplasm of bladder
CPT/HCPCS: 36415; 36592; 51701; 71045; 76770; 80048; 80053; 81001; 83036; 83605; 83735; 84145; 85025; 87040; 87086; 87635; 94762; 96361; 96365; 97116; 97161; 97530; 99284; 99285; J1335; J1644; J2543

== ENCOUNTER → 2020-04-14 19:42 | Outpatient (ROUT) | payer MEDICARE, SELFPAY ==
[2019-11-08 22:36] VITALS: BMI 40.4
[2020-04-14 20:06] LABS: Aspartate Aminotransferase 30 IU/L (17-59); BUN Creatinine Ratio 14.5 (6-22); Blood Urea Nitrogen 17 mg/dL (9-20); Calcium 9.3 mg/dL (8.4-10.2); Carbon Dioxide 26 mmol/L (22-32); Chloride 104 mmol/L (98-107); Cholesterol 129 mg/dL (140-199); Estimated Glomerular Filt Rate 59.8 mL/min (>60); Glucose 117 mg/dL (80-110); HDL Cholesterol 27 mg/dL (40-60); HEMOLYSIS < 15 (0-50); LDL Cholesterol Calculated 71 mg/dL (<100); Potassium 4.3 mmol/L (3.4-5.1); Sodium 140 mmol/L (137-145); Triglycerides 153 mg/dL (35-150)
[2020-04-14 20:35] LABS: Add Manual Diff / Slide Review YES; Hematocrit 39.2 % (41-53); Hemoglobin 12.9 g/dL (13.5-17.5); Mean Corpuscular HGB Conc 32.9 % (30-36); Mean Corpuscular Hemoglobin 28.2 PG (26-34); Mean Corpuscular Volume 85.9 fL (80-100); Platelet Count 388 X10^3/uL (150-400); Red Blood Cell Count 4.57 X10^6/uL (4.5-5.9); White Blood Cell Count 8.2 X10^3/uL (4.5-11.0)
[2020-04-14 20:39] LABS: Neutrophils Absolute Manual 5412 /uL (3000-5900); RBC Morphology Normal Morphology; Total Cells Counted 100
== END ==
PROVIDERS: PCP Internal Medicine; Visit Provider Internal Medicine
DX: I25.10 Atherosclerotic heart disease of native coronary artery without angina pectoris (principal); E78.2 Mixed hyperlipidemia; C67.9 Malignant neoplasm of bladder, unspecified
CPT/HCPCS: 80048; 80061; 84450; 85007; 85025

== ENCOUNTER → 2020-05-09 10:39 | Outpatient (CLI) | payer MEDICARE, SELFPAY ==
[2019-11-08 22:36] VITALS: BMI 40.4
--- NOTE | 2020-05-09 10:45 | DI.RAD.S_ITS ---
PROCEDURE: XR KNEE RT 3V INDICATIONS: Right KNEE PAIN POST FALL TECHNIQUE: 3 views of the knee were acquired. COMPARISON: None. FINDINGS: Bones: No fractures or dislocations. No suspicious bony lesions. Soft tissues: No joint effusion. No suspicious soft tissue calcifications. There appears to be soft tissue swelling at the prepatellar region, at and above the level of the superior patellar margin IMPRESSION: A fracture is not found. A definite joint effusion is not seen. Prepatellar soft tissue swelling is present. 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 Dictated by: Rafal Burns M.D. on 05/09/2020 at 12:25 Approved by: Rafal Burns M.D. on 05/09/2020 at 12:26
== END ==
PROVIDERS: PCP Internal Medicine; Referring Provider Internal Medicine; Visit Provider Internal Medicine
DX: S89.91XA Unspecified injury of right lower leg, initial encounter (principal); M25.561 Pain in right knee; M79.89 Other specified soft tissue disorders; M17.11 Unilateral primary osteoarthritis, right knee; W19.XXXA Unspecified fall, initial encounter
CPT/HCPCS: 73562

== ENCOUNTER 2020-06-01 16:54 | Emergency (ER) | payer MEDICARE, SELFPAY ==
[2019-11-08 22:36] VITALS: BMI 40.4
[2020-06-01 17:22] VITALS: BP 177/83; PULSE 77; RESP 15; TEMP 36.9; O2SAT 95; BMI 40.0
--- NOTE | 2020-06-01 17:48 | PC.NURSE ---
drawn by lab
[2020-06-01 18:02] LABS: Add Manual Diff / Slide Review NO; Basophils Absolute Auto 100 /uL (0-100); Basophils Percent Auto 1.5 % (0-2); Eosinophils Absolute Auto 300 /uL (0-450); Eosinophils Percent Auto 4.4 % (2-4); Hematocrit 39.2 % (41-53); Hemoglobin 12.9 g/dL (13.5-17.5); Lymphocytes Absolute Auto 1600 /uL (1100-4500); Lymphocytes Percent Auto 21.4 % (25-40); Mean Corpuscular HGB Conc 32.9 % (30-36); Mean Corpuscular Hemoglobin 28.5 PG (26-34); Mean Corpuscular Volume 86.7 fL (80-100); Monocytes Absolute Auto 600 /uL (0-900); Monocytes Percent Auto 7.7 % (3-14); Neutrophils Absolute Auto 4800 /uL (1500-7000); Platelet Count 217 X10^3/uL (150-400); Red Blood Cell Count 4.52 X10^6/uL (4.5-5.9); Red Cell Distribution Width 15.4 % (11.6-14.8); White Blood Cell Count 7.3 X10^3/uL (4.5-11.0)
--- NOTE | 2020-06-01 18:04 | ED_ITS ---
HPI - Extremity Injury (Lower) General Chief Complaint: Extremity Injury, Lower Stated Complaint: states aleksander smith right calf, thinks blood clot Time Seen by Provider: 06/01/20 17:58 Source: patient Mode of arrival: Wheelchair Limitations: no limitations History of Present Illness HPI Narrative: Patient is an 79-year-old male with history of aortic valve replacement presenting today with sudden onset of severe left calf pain. He says 2 weeks ago he was walking when he twisted and injured his right knee. He is able to bear weight on his right leg but he is more sedentary and sitting in the recliner more. He does calf exercises twice a day, he still gets up and walks around the house but says that he is definitely sitting more than he used to. Today he got up but had sudden onset of pain in his left calf. It is pinpoint to touch quite tender. He is worried that he may have a blood clot. He denies any chest pain fever palpitations shortness of breath or any other symptoms. He took Tylenol prior to arrival and has not helped. MD complaint: leg injury Onset (ago): hour(s) Related Data Home Medications Medication Instructions Recorded Confirmed aspirin [Aspir-Low] 81 mg PO DAILY #0 02/21/10 11/08/19 diltiazem HCl 240 mg PO BID #0 01/24/12 11/08/19 irbesartan [Avapro] 300 mg PO QDAY #0 01/24/12 11/08/19 hydralazine 50 mg tablet 50 mg PO TID 11/02/17 11/08/19 carvedilol 3.125 mg tablet 3.125 mg PO BID 07/25/18 11/08/19 rosuvastatin 2.5 mg PO DAILY 11/08/19 11/08/19 Previous Rx's Medication Instructions Recorded docusate sodium [DOK] 100 mg PO BID #60 cap 11/10/19 finasteride 5 mg PO BEDTIME #30 tab 11/10/19 polyethylene glycol 3350 [Miralax] 17 gram PO DAILY #238 gram 11/10/19 cyclobenzaprine 5 mg PO TID PRN #10 tab 06/01/20 Allergies Allergy/AdvReac Type Severity Reaction Status Date / Time latex Allergy Intermediate Hives Verified 06/01/20 17:27 Review of Systems Review of Systems ROS Unobtainable: All systems reviewed & are unremarkable except as noted in HPI and below Constitutional Constitutional: Denies chills, Denies fever(s), Denies lethargy and Denies weakness ENT Ears, Nose, Mouth, and Throat: Denies dizziness Cardiovascular Cardiovascular: Denies chest pain, Denies irregular heart rhythm, Denies lightheadedness, Denies palpitations, Denies dyspnea, Denies dyspnea on exertion and Denies orthopnea Respiratory Respiratory: Denies cough, Denies dyspnea, Denies dyspnea on exertion and Denies wheezing Gastrointestinal Gastrointestinal: Denies abdominal pain, Denies change in bowel habits, Denies diarrhea, Denies nausea and Denies vomiting Musculoskeletal Musculoskeletal: Reports as per HPI Integumentary/Breasts Skin/Breast: Denies pruritus, Denies erythema, Denies rash and Denies wounds Neurologic Neurologic: Denies confusion, Denies dizziness and Denies weakness Psychiatric Psychiatric: Denies confusion Endocrine Endocrine: Denies palpitations Allergic/Immunologic Allergic/Immunologic: Denies wheezing Patient History Medical History Aortic stenosis Bladder cancer BPH (benign prostatic hyperplasia) Central sleep apnea Fatigue Heart disease Hypertension Morbid obesity with body mass index of 40.0-49.9 Obstructive sleep apnea of adult Surgical History History of bladder surgery S/P TAVR (transcatheter aortic valve replacement) Family History Father Smoker Cancer Mother Smoker Cancer Sister Cancer Sister Cancer Social History household members: spouse Smoking Status: Never smoker alcohol intake: current Smoking Status: Never smoker alcohol intake frequency: 0-2 drinks per day Substance Use Type: does not use Exam Initial Vital Signs Initial Vital Signs: Vital Signs Temperature 98.5 F 06/01/20 17:22 Pulse Rate 77 06/01/20 17:22 Respiratory Rate 15 06/01/20 17:22 Blood Pressure 177/83 H 06/01/20 17:22 Pulse Oximetry 95 06/01/20 17:22 GENERAL: Alert pleasant 79-year-old male and in no acute distress. HEENT: Head atraumatic,EOMI, pupils reactive, face symmetric, moist mucous membranes CARDIOVASCULAR: Regular rate and rhythm without murmurs, rubs or gallops. RESPIRATORY: Breath sounds equal bilaterally, no wheezes rales or rhonchi. ABDOMEN: Soft, nontender. Normoactive bowel sounds all 4 quadrants. No guarding or rebound. EXTREMITIES: Normal range of motion, no clubbing or edema. Neurovascularly int act. Right lower extremity knee is initially not swollen no erythema in is stable. Compression sock is on the right leg distal pulse intact Left leg medial calf tenderness with obvious muscle spasm. No erythema no significant swelling distal pedal pulse intact NEUROLOGICAL: Alert and oriented x4.Normal gait and speech. Cranial nerves II through XII grossly intact. SKIN: Warm, dry, no laceration, no petechiae, no rashes or lesions. Scores Wells' Criteria for DVT Active Cancer (Treatment within 6 months): No Bedridden recently >3 days or major surgery within 4 weeks: No Calf Swelling >3cm compared to other leg: No Collateral (nonvericose) superficial veins present: No Entire leg swollen: No Localized tenderness along the deep vein system: No Pitting edema, confined to symtomatic leg: No Paralysis, paresis, or recent plaster immobilization of ext: No Previously documented DVT: No Alternative dx to DVT as likely or more likely: No Wells' criteria for DVT: 0 Course Orders Ordered: ED Orders 06/01/20 17:55 Basic Metabolic Panel Stat Complete Blood Count AUTO DIFF Stat D Dimer Stat Partial Thromboplastin Time Stat Prothrombin Time INR Stat Discontinued Medications Hydrocodone Bitart/Acetaminophen (Hydrocodone/Acet 5/325 Prepack) 1 bottle MISC SEEINSTR ONE Stop: 06/01/20 19:03 Last Admin: 06/01/20 19:09 Dose: 1 bottle Documented by: KYLER Cyclobenzaprine HCl (Cyclobenzaprine 5 Mg Tablet) 5 mg PO NOW ONE Stop: 06/01/20 18:15 Last Admin: 06/01/20 18:23 Dose: 5 mg Documented by: ARLENE Ketorolac Tromethamine (Ketorolac 60 Mg/2 Ml Vial) 30 mg IM NOW ONE Stop: 06/01/20 18:15 Last Admin: 06/01/20 18:23 Dose: 30 mg Documented by: ARLENE Vital Signs Vital signs: Vital Signs - 8 hr 06/01/20 17:22 06/01/20 19:17 Temperature 98.5 F 98.2 F Pulse Rate 77 68 Respiratory Rate 15 14 Blood Pressure 177/83 H 177/80 H Pulse Oximetry 95 98 MDM - Extremity Injury (Lower) Lab Data Attestation: I reviewed the patient's lab results. Result diagrams: 06/01/20 17:55 06/01/20 17:55 Labs: Lab Results 06/01/20 06/01/20 06/01/20 Range/Units 17:55 17:55 17:55 WBC 7.3 (4.5-11.0) X10^3/uL RBC 4.52 (4.5-5.9) X10^6/uL Hgb 12.9 L (13.5-17.5) g/dL Hct 39.2 L (41-53) % MCV 86.7 (80-100) fL MCH 28.5 (26-34) PG MCHC 32.9 (30-36) % RDW 15.4 H (11.6-14.8) % Plt Count 217 (150-400) X10^3/uL Neut % (Auto) 65.0 (50-75) % Lymph % (Auto) 21.4 L (25-40) % [place] % (Auto) 7.7 (3-14) % Eos % (Auto) 4.4 H (2-4) % Baso % (Auto) 1.5 (0-2) % Neut # (Auto) 4800 (6105-4053) /uL Lymph # (Auto) 1600 (6628-7706) /uL [place] # (Auto) 600 (0-900) /uL Eos # (Auto) 300 (0-450) /uL Baso # (Auto) 100 (0-100) /uL PT 12.4 (10.1-12.7) SECONDS INR 1.1 (0.9-1.3) APTT 31 (26.4-36.2) SECONDS D-Dimer 452 H (<230) ng/mL Sodium 139 (137-145) mmol/L Potassium 3.4 (3.4-5.1) mmol/L Chloride 106 (98-107) mmol/L Carbon Dioxide 25 (22-32) mmol/L BUN 16 (9-20) mg/dL Creatinine 1.02 (0.66-1.25) mg/dL Estimated GFR > 60.0 (>60) mL/min BUN/Creatinine Ratio 15.7 (6-22) Glucose 109 (80-110) mg/dL Calcium 9.3 (8.4-10.2) mg/dL MDM Narrative Medical decision making narrative: Patient has obvious pinpoint muscle spasm after trying to get up with today. This is highly unlikely a blood clot. D- dimer was ordered prior to my arrival I would not have ordered it is my small the patient 1st. Patient's pain is significantly better after Toradol and Flexeril. Clinically this is a muscle spasm. Blood work is overall reassuring. At this time no imaging is indicated. Discharge Plan Departure Patient Disposition: Home Clinical Impression: Muscle spasm of left lower extremity Instructions: DI for Muscle Spasm Activity Restrictions/Additional Instructions: *You have been diagnosed with left leg muscle spasm *What to do: Increase activity as tolerated. Recommend heating pad and light massage. *Continue to take medications as directed--> SENT TO [facility] Ibuprofen 600 mg every 6-8 hours if needed for [id number] pain he not take for 8 hours he received dose in the emergency department Flexeril 5 mg every 8 hours if needed for muscle spasm, do not take for 8 hours he received a dose in the emergency department [place] 1 tablet every 6 hours if needed for severe pain *Follow up with your primary care provider in 2-3 days *Return to ER if you should have increasing pain, shortness of breath, swelling, redness, fever or any new, worsening or concerning symptoms CONTROLLED SUBSTANCE DISCHARGE (Narcotoic/benzodiazepine/Flexeril/Phenergan) 1. You have been prescribed narcotic medications, it does have acetaminophen/Tylenol/paracetamol in it, DO NOT TAKE MORE THAN 4,00mg in 24 hours of Tylenol. TRAMADOL DOES NOT CONTAIN TYLENOL 2. Please understand that we cannot provide further refills of narcotics, benzodiazepines or controlled substances through the ED and her pain management will need to be through your provider. 3. While on these medications you cannot drive or operate heavy machinery. 4. You cannot sign legal documents or perform any duties such as this. 5. As long as you're taking opiate pain medications he should also be taking a stool softener such as Colace, Dulcolax, MiraLAX or prune juice, to help avoid constipation. Prescriptions: New cyclobenzaprine 5 mg tablet 5 mg PO TID PRN (Reason: muscle spasm) Qty: 10 RF: 0 No Action aspirin [Aspir-Low] 81 mg Tablet,Delayed Release (Dr/Ec) 81 mg PO DAILY Qty: 0 RF: 0 irbesartan [Avapro] 300 MG tablet 300 mg PO QDAY Qty: 0 RF: 0 diltiazem HCl 240 mg Capsule,Extended Release 24 Hr 240 mg PO BID Qty: 0 RF: 0 rosuvastatin 5 mg tablet 2.5 mg PO DAILY RF: 0 finasteride 5 mg Tablet 5 mg PO BEDTIME Qty: 30 RF: 0 polyethylene glycol 3350 [Miralax] 17 gram/dose powder 17 gram PO DAILY Qty: 238 RF: 0 docusate sodium [DOK] 100 mg Capsule 100 mg PO BID Qty: 60 RF: 0 carvedilol 3.125 mg tablet 3.125 mg PO BID RF: 0 hydralazine 50 mg tablet 50 mg PO TID RF: 0 Referrals: Keshawn Cruz MD [Primary Care Provider] -
[2020-06-01 18:11] LABS: INR 1.1 (0.9-1.3); Prothrombin Time 12.4 SECONDS (10.1-12.7)
[2020-06-01 18:13] LABS: PTT Partial Thromboplastin Tim 31 SECONDS (26.4-36.2)
[2020-06-01 18:14] LABS: BUN Creatinine Ratio 15.7 (6-22); Blood Urea Nitrogen 16 mg/dL (9-20); Calcium 9.3 mg/dL (8.4-10.2); Carbon Dioxide 25 mmol/L (22-32); Chloride 106 mmol/L (98-107); D Dimer 452 ng/mL (<230); Estimated Glomerular Filt Rate > 60.0 mL/min (>60); Glucose 109 mg/dL (80-110); HEMOLYSIS < 15 (0-50); Potassium 3.4 mmol/L (3.4-5.1); Sodium 139 mmol/L (137-145)
[2020-06-01] MEDS: KETOROLAC 60 MG/2 ML VIAL 30 MG IM (18:23)
[2020-06-01] MEDS: CYCLOBENZAPRINE 5 MG TABLET PO (18:23)
[2020-06-01] MEDS: HYDROCODONE/ACET 5/325 PREPACK 1 BOTTLE MISC (19:09)
[2020-06-01 19:17] VITALS: BP 177/80; PULSE 68; RESP 14; TEMP 36.8; O2SAT 98
== END 2020-06-01 19:20 | disposition home or self-care (01) ==
PROVIDERS: Emergency Medicine; Emergency Provider Emergency Medicine; PCP Internal Medicine
DX: M62.831 Muscle spasm of calf (principal); Z95.2 Presence of prosthetic heart valve
CPT/HCPCS: 36415; 80048; 85025; 85379; 85610; 85730; 96372; 99283; J1885

== ENCOUNTER → 2020-07-16 10:38 | Outpatient (CLI) | payer MEDICARE, SELFPAY ==
[2019-11-08 22:36] VITALS: BMI 40.4
--- NOTE | 2020-07-16 | DI.US.S_ITS ---
PROCEDURE: US PERIPH VENOUS LOW EXTREM LT INDICATIONS: EDEMA TECHNIQUE: Real-time imaging, as well as color and pulse Doppler interrogation, were performed of the lower extremity deep veins from the inguinal ligament to the popliteal fossa. COMPARISON: None. FINDINGS: The common femoral, femoral and popliteal veins are normally compressible, and free of intraluminal thrombus. Color and pulse Doppler demonstrate normal phasic intraluminal flow. There is normal augmentation response to distal compression maneuver. 4.0 x 1.7 by 3.1 centimeter popliteal cyst. IMPRESSION: No evidence of deep vein thrombosis involving the left lower extremity. Dictated by: Melissa Fernandez MD, PhD on 07/18/2020 at 16:05 Approved by: Melissa Fernandez MD, PhD on 07/18/2020 at 16:06
== END ==
PROVIDERS: PCP Internal Medicine; Referring Provider Internal Medicine; Visit Provider Internal Medicine
DX: R60.9 Edema, unspecified (principal); M71.22 Synovial cyst of popliteal space [Baker], left knee
CPT/HCPCS: 93971

== ENCOUNTER → 2022-01-25 13:29 | Outpatient (CLI) | payer MEDICARE, SELFPAY ==
[2019-11-08 22:36] VITALS: BMI 40.4
[2022-01-25 14:27] LABS: Hematocrit 43.7 % (41-53); Hemoglobin 14.8 g/dL (13.5-17.5); Mean Corpuscular HGB Conc 33.9 % (30-36); Mean Corpuscular Hemoglobin 28.8 PG (26-34); Mean Corpuscular Volume 85.1 fL (80-100); Platelet Count 221 X10^3/uL (150-400); Red Blood Cell Count 5.14 X10^6/uL (4.5-5.9); Red Cell Distribution Width 14.5 % (11.6-14.8); White Blood Cell Count 7.4 X10^3/uL (4.5-11.0)
[2022-01-25 14:40] LABS: Alanine Aminotransferase 28 IU/L (<50); Albumin 4.6 g/dL (3.5-5.0); Albumin Globulin Ratio 1.3 (1.0-2.8); Alkaline Phosphatase 81 U/L (38-126); Aspartate Aminotransferase 23 IU/L (17-59); Bilirubin Total 0.6 mg/dL (0.2-1.3); Blood Urea Nitrogen 22 mg/dL (9-20); Calcium 9.2 mg/dL (8.4-10.2); Carbon Dioxide 25 mmol/L (22-32); Chloride 98 mmol/L (98-107); Cholesterol 180 mg/dL (140-199); Estimated Glomerular Filt Rate > 60 mL/min (>60); Globulin 3.6 g/dL (1.7-4.1); Glucose 198 mg/dL (80-110); HDL Cholesterol 35 mg/dL (40-60); HEMOLYSIS < 15 (0-50); LDL Cholesterol Calculated 92 mg/dL (<100); Potassium 3.5 mmol/L (3.4-5.1); Sodium 137 mmol/L (137-145); Total Protein 8.2 g/dL (6.3-8.2); Triglycerides 265 mg/dL (35-150)
[2022-01-25 15:16] LABS: TSH w/ Reflex to FT4 1.89 uIU/mL (0.47-4.68)
== END ==
PROVIDERS: Family Provider Internal Medicine; PCP Internal Medicine; Referring Provider Internal Medicine; Visit Provider Internal Medicine
DX: E78.2 Mixed hyperlipidemia (principal); M17.0 Bilateral primary osteoarthritis of knee
CPT/HCPCS: 36415; 80053; 80061; 84443; 85027

== ENCOUNTER 2022-03-17 11:45 | Outpatient (RCR) | payer MEDICARE, SELFPAY ==
[2019-11-08 22:36] VITALS: BMI 40.4
--- NOTE | 2022-01-04 16:00 | PT.OIE ---
Current Diagnoses Other chronic pain (01/04/22) Unilateral post-traumatic osteoarthritis, right hip (01/04/22) Pain in right hip (01/04/22) Pain in right knee (01/04/22) Pain in left knee (01/04/22) Difficulty in walking, not elsewhere classified (01/04/22) Other symptoms and signs involving the musculoskeletal system (01/04/22) Past Medical History (Last Reviewed 08/12/21 @ 10:58 by Miguel Torres MD) Aortic stenosis (~2016) Bladder cancer (~2016) BPH (benign prostatic hyperplasia) Cataracts, bilateral (~2013) Central sleep apnea Essential hypertension Hearing loss Heart disease Hemorrhoid (~2011) Hypertension (~1989) Knee pain, bilateral Mixed hyperlipidemia Morbid obesity with body mass index of 40.0-49.9 Obstructive sleep apnea of adult Primary osteoarthritis Skin cancer (~1997) Past Surgical History (Last Reviewed 08/12/21 @ 10:58 by Miguel Torres MD) Anesthesia History of appendectomy (~194) History of bladder surgery (~2016) History of tonsillectomy (~1949) History of umbilical hernia (~2003) S/P TAVR (transcatheter aortic valve replacement) (~2016) Visit Care Team Role Provider Type Keshawn Cruz MD Family Provider Physician Primary Care Provider Specialty: Internal Medicine Address: [address] [place] [address], [id number] Email: [email or web address] Attending Provider Non-Staff Referring Provider Specialty: Orthopedic Surgery Address: [address] [place] [address], [id number] Email: Physical Therapy Initial Evaluation PT-OP-A Visit Information Start: 01/04/22 11:15 Freq: Status: Active Protocol: Document 01/04/22 14:27 EMELI (Rec: 01/04/22 15:23 EMELI [id number]) Out-Patient Physical Therapy Visit Information Visit Information Visit Type Initial Evaluation Visit Start Time 14:28 Visit Stop Time 15:25 Total Visit Minutes 57 Visit Number 1 Evaluation Information Evaluation Date 01/04/22 Precautions Precautions cardiac: HTN, s/p aortic valve replacement 2017, arthritis PT-OP-B Current Condition Start: 01/04/22 11:15 Freq: Status: Active Protocol: Document 01/04/22 14:27 [facility] (Rec: 01/04/22 15:23 [facility] [id number]) Current Condition History of Current Condition Onset Date 1 1/2 years Current Complaints LE weakness and pain History of Current Condition 1 1/2 years ago fell while stepping down without realizing there was a step and twisted on his knee. Left knee was doing all lifting work after that, has old footbal injury, and it started to hurt. Dr. Cruz had x- rays done, ice, Tylenol, and rest recommended. Patient reports he thinks he was too patient. Spent a lot of time sitting. Feels he lost a lot of leg strength. Used a walker for quite awhile, still uses at time especially at night going to bathroom. Legs fatigue quickly. Going to [place] in May, concerned about mobility to be able to enjoy the trip. States he knows he also needs to lose about 40 lbs Hasn't done the exercises issued from Orthopedist yet. Has done aquatic therapy exercises previously given. Prior Treatments and Tests x-ray: arthritis bilateral knees fall 11 years ago with fractured hip Treatment Goals Patient/Caregiver Goals Improve strength, decrease pain, improve activity tolerance. Prior Functional Status Baseline Function- ADL's Independent Baseline Function- Mobility Independent Baseline Function- Gait no difficulty Baseline Function- Work/School retired Baseline Function- Recreation/Hobbies walking, golf Current Functional Impairments (Reported) Functional Limitations- ADL's increased time, painful Functional Limitations- Mobility/Gait decreased distance, painful Functional Limitations- Work/School retired Functional Limitations- Recreation/ hasn't golfed since fall Hobbies Personal Factors Other Personal Factors That May Effect age; patient 81 y/o, weight; Therapy/Recovery pt 6'0 and 292 lbs PT-OP-C Subjective Start: 01/04/22 11:15 Freq: Status: Active Protocol: Document 01/04/22 14:27 [facility] (Rec: 01/04/22 16:36 [facility] [id number]) Patient Questionnaires Lower Extremity Functional Scale LEFS Score 50% OP-PT Pain Assessment Pain Assessment Grid Paper Pain Assessment Grid Completed Yes Location bilateral knees Intensity 5 Pain Aggravating Factors Position,Activity Pain Alleviating Factors Rest Pain Behaviors Pain Behaviors Calling Out,Facial Grimacing, Wincing PT-OP-D Balance Start: 01/04/22 11:15 Freq: Status: Active Protocol: Document 01/04/22 14:27 [facility] (Rec: 01/04/22 16:36 [facility] [id number]) OP-PT Balance Assessment Sitting Balance Static Sitting Balance Ability Normal Dynamic Sitting Balance Ability Normal Standing Balance Static Standing Balance Ability Good Dynamic Standing Balance Ability Good Herrera Fall Scale Copyright Permission PT-OP-E Functional Tests Start: 01/04/22 11:15 Freq: Status: Active Protocol: Document 01/04/22 14:27 [facility] (Rec: 01/04/22 16:36 [facility] [id number]) Functional Tests 6 Minute Walk Test Distance 1128 Device Used none Comments antalgic, mild SOB PT-OP-G Mobility & Gait Start: 01/04/22 11:15 Freq: Status: Active Protocol: Document 01/04/22 14:27 [facility] (Rec: 01/04/22 16:36 [facility] [id number]) OP Mobility Evaluation Transfers Sit to Stand indep, no UE assist OP Gait Assessment Gait Gait Assistance Required: Independent Distance (Feet) 1,127 Able to Maintain Weight Bearing Status Yes During Gait Assistive Devices Assistive Device None Gait Deviations General Gait Pattern Antalgic Factors Limiting Gait Function Factors Limiting Gait Function Decreased Activity Tolerance, Pain Comments Gait Comments no LOB Stair Climbing Evaluation Evaluation Level of Assist On Stairs Standby Assistance Devices Stair Climbing Assistive Devices Left Railing,Right Railing Technique/Endurance Stair Climbing Direction Ascend and Descend Stair Climbing Technique Step to Step PT-OP-J Posture/Palpation/Skin Start: 01/04/22 11:15 Freq: Status: Active Protocol: Document 01/04/22 14:27 [facility] (Rec: 01/04/22 16:36 [facility] [id number]) Palpation Assessment Location medial knee joints Palpation Findings Tenderness PT-OP-K Range of Motion Start: 01/04/22 11:15 Freq: Status: Active Protocol: Document 01/04/22 14:27 [facility] (Rec: 01/04/22 16:36 [facility] [id number]) Hip Goniometric Range of Motion Hip ramses Flexion w/Knee Flexed 95 Straight Leg Raise 55 Extension 0 Abduction 30 Internal Rotation 10 External Rotation 40 Hip ROM Limitations Hip ROM Limitations Soft Tissue Tightness,Bony Restriction,Pain Knee Goniometric Range of Motion Knee ramses Flexion Active (degrees) 120 Extension Active (degrees) 10 Extension Passive (degrees) 5 Knee ROM Limitations Knee ROM Limitations Soft Tissue Tightness,Pain Ankle and Foot Goniometric Range of Motion Ankle and Foot ramses Dorsiflexion with Knee Flexed 5 Dorsiflexion with Knee Extended 0 Plantarflexion 40 Ankle and Foot ROM Limitations ROM Limitations Soft Tissue Tightness PT-OP-M Strength Start: 01/04/22 11:15 Freq: Status: Active Protocol: Document 01/04/22 14:27 [facility] (Rec: 01/04/22 15:23 [facility] [id number]) Hip Strength Hip Manual Muscle Testing Left Flexion (L2) 4 Good Extension (S1) 4- Good- Abduction 4- Good- External Rotation 4- Good- Internal Rotation 4 Good Right Flexion (L2) 4 Good Extension (S1) 4- Good- Abduction 4 Good External Rotation 4- Good- Internal Rotation 4 Good Knee Strength Knee Manual Muscle Testing ramses Flexion (S2) 4 Good Extension (L3) 4 Good Ankle/Foot Strength Ankle and Foot Manual Muscle Testing Left Dorsiflexion (L4) 4- Good- Plantarflexion (S1) 4- Good- Right Dorsiflexion (L4) 4+ Good+ Plantarflexion (S1) 4+ Good+ PT-OP-Q Treatments Start: 01/04/22 11:15 Freq: Status: Active Protocol: Document 01/04/22 14:27 [facility] (Rec: 01/04/22 16:36 [facility] [id number]) Self-Care/Home Management Treatment Education Patient Education Home Exercise Program Other Education bring HEP issued by physician to PT next session, consider trying heat to knees, do a few exercises prior to standing up from sitting to improve ease PT-OP-R Modalities Start: 01/04/22 11:15 Freq: Status: Active Protocol: Document 01/04/22 14:27 [facility] (Rec: 01/04/22 16:36 [facility] [id number]) Hot Pack/Cold Pack Treatment Hot Pack Location ramses knees Patient Position Hooklying Treatment Duration (minutes) 15 Patient Tolerance Good Comments strap around distal thighs PT-OP-T Assessment and Plan Start: 01/04/22 11:15 Freq: Status: Active Protocol: Document 01/04/22 14:27 [facility] (Rec: 01/04/22 16:36 [facility] [id number]) Physical Therapy Assessment Rehab Potential Rehabilitation Potential Good Evaluation Complexity Number of Personal Factors/Comorbidities 1-2 Number of Body Systems Impaired 3 Clinical Presentation at Evaluation Evolving Impairments Impairments Activity Tolerance,Pain,ROM, Strength Goals Three Impairment weakness and decreased flexibility bilateral LE's Impairment limits mobilty Short Term Goal (STG) Patient to be instructed in HEP for purposes of strengthening and flexibility to support activities in therapy STG Duration 02/16/22 [facility] Goal (LTG) Patient to be independent and compliant with HEP and aquatic exercise program and demonsrate 5/5 muscle strength and LE ROM WNL LTG Duration 04/06/21 Two Impairment antalgic gait Longterm Goal (LTG) Improve pain sufficient to allow patient to ambulate without limp LTG Duration 04/06/21 One Impairment Impaired activity tolerance Impairment Lower extremity functional scale (LEFS) score 50% Short Term Goal (STG) Improve LEFS to at least 65% as measure of improved activity tolerance and functional strength STG Duration 02/16/22 [facility] Goal (LTG) Improve LEFS to at least 75% as measure of improved activity tolerance and ability to return to prior level of function LTG Duration 04/06/21 Assessment Summary Assessment Patient presents to PT with c/ o function-limiting pain and weakness in his bilateral knees causing limitations in his activity tolerance and ability to do his usual activities. This appears to be related to a fall 1 1/2 years ago resulting in pain and decreased activity; patient reports he was too patient waiting for his body to heal and now has gained weight and is having more difficulty with mobility. He would benefit from PT to decrease his pain, improve his flexibility and strength in LE's, and help him to return to prior level of function. I recommended he also see a pipe line walker as he is interested in losing weight. Aquatic therapy is highly recommended for offloading of his joints to improve ease of mobility with strengthening. We discussed POC and he is in agreement. Physical Therapy Plan Frequency and Duration Frequency of Treatment 2x/Week Duration of treatment (weeks) 12 Plan of Care Start Date 01/04/22 Plan of Care End Date 04/06/21 Therapeutic Interventions Therapeutic Interventions Aquatic Therapy,Gait Training, Home Exercise Program,Manual Therapy,Neuromuscular Re- education,Patient/Caregiver Education,Self-Care/Home Management,Soft Tissue Mobilization,Therapeutic Activities,Therapeutic Exercises Modalities Cold Pack/Ice Massage,Electric Stimulation,Hot Packs Next Visit Focus/Plan Next Note Type Treatment Note Next Visit Plan Review HEP, assess response to moist heat to knees. Strengthening and flexibility ex as tolerated, update HEP.
--- NOTE | 2022-01-04 16:00 | PT.OPPOC ---
Physical, Occupational & Speech Therapy At [facility] Current Diagnoses Other chronic pain (01/04/22) Unilateral post-traumatic osteoarthritis, right hip (01/04/22) Pain in right hip (01/04/22) Pain in right knee (01/04/22) Pain in left knee (01/04/22) Difficulty in walking, not elsewhere classified (01/04/22) Other symptoms and signs involving the musculoskeletal system (01/04/22) Visit Care Team Role Provider Type Keshawn Cruz MD Family Provider Physician Primary Care Provider Specialty: Internal Medicine Address: [address] [place] [address], [facility] Email: [email or web address] Randolph Dumont DO Attending Provider Non-Staff Referring Provider Specialty: Orthopedic Surgery Address: [address] [place] [address], [id number] Email: Plan Of Care PT-OP-T Assessment and Plan Start: 01/04/22 11:15 Freq: Status: Active Protocol: Document 01/04/22 14:27 EMELI (Rec: 01/04/22 16:36 SAK [id number]) Physical Therapy Assessment Rehab Potential Rehabilitation Potential Good Evaluation Complexity Number of Personal Factors/Comorbidities 1-2 Number of Body Systems Impaired 3 Clinical Presentation at Evaluation Evolving Impairments Impairments Activity Tolerance,Pain,ROM, Strength Goals Three Impairment weakness and decreased flexibility bilateral LE's Impairment limits mobilty Short Term Goal (STG) Patient to be instructed in HEP for purposes of strengthening and flexibility to support activities in therapy STG Duration 02/16/22 Jail Goal (LTG) Patient to be independent and compliant with HEP and aquatic exercise program and demonsrate 5/ muscle strength and LE ROM WNL LTG Duration 04/06/21 Two Impairment antalgic gait [facility] Director Goal (LTG) Improve pain sufficient to allow patient to ambulate without limp LTG Duration 04/06/21 One Impairment Impaired activity tolerance Impairment Lower extremity functional scale (LEFS) score 50% Short Term Goal (STG) Improve LEFS to at least 65% as measure of improved activity tolerance and functional strength STG Duration 02/16/22 [facility] Director Goal (LTG) Improve LEFS to at least 75% as measure of improved activity tolerance and ability to return to prior level of function LTG Duration 04/06/21 Assessment Summary Assessment Patient presents to PT with c/ o function-limiting pain and weakness in his bilateral knees causing limitations in his activity tolerance and ability to do his usual activities. This appears to be related to a fall 1 1/2 years ago resulting in pain and decreased activity; patient reports he was too patient waiting for his body to heal and now has gained weight and is having more difficulty with mobility. He would benefit from PT to decrease his pain, improve his flexibility and strength in LE's, and help him to return to prior level of function. I recommended he also see a manager of compliance as he is interested in losing weight. Aquatic therapy is highly recommended for offloading of his joints to improve ease of mobility with strengthening. We discussed POC and he is in agreement. Physical Therapy Plan Frequency and Duration Frequency of Treatment 2x/Week Duration of treatment (weeks) 12 Plan of Care Start Date 01/04/22 Plan of Care End Date 04/06/21 Therapeutic Interventions Therapeutic Interventions Aquatic Therapy,Gait Training, Home Exercise Program,Manual Therapy,Neuromuscular Re- education,Patient/Caregiver Education,Self-Care/Home Management,Soft Tissue Mobilization,Therapeutic Activities,Therapeutic Exercises Modalities Cold Pack/Ice Massage,Electric Stimulation,Hot Packs Next Visit Focus/Plan Next Note Type Treatment Note Next Visit Plan Review HEP, assess response to moist heat to knees. Strengthening and flexibility ex as tolerated, update HEP. Plan of Care Dates Plan of Care Start Date 01/04/22 Plan of Care End Date 04/06/21 Electronically Signed by: Riri Álvarez PT 01/05/22 0933 If you are in agreement with this Plan of Care, please return a signed and dated copy. I have reviewed this Plan of Care and certify that the skilled therapy services above are required to meet the patient?s needs. Physician Signature Date Printed Name and Credentials Clinical Instructor Signature Printed Name and Credentials
--- NOTE | 2022-01-05 09:32 | PT.OIE ---
Current Diagnoses Other chronic pain (01/04/22) Unilateral post-traumatic osteoarthritis, right hip (01/04/22) Pain in right hip (01/04/22) Pain in right knee (01/04/22) Pain in left knee (01/04/22) Difficulty in walking, not elsewhere classified (01/04/22) Other symptoms and signs involving the musculoskeletal system (01/04/22) Past Medical History (Last Reviewed 08/12/21 @ 10:58 by Miguel Torres MD) Aortic stenosis (~2016) Bladder cancer (~2016) BPH (benign prostatic hyperplasia) Cataracts, bilateral (~2013) Central sleep apnea Essential hypertension Hearing loss Heart disease Hemorrhoid (~2011) Hypertension (~1989) Knee pain, bilateral Mixed hyperlipidemia Morbid obesity with body mass index of 40.0-49.9 Obstructive sleep apnea of adult Primary osteoarthritis Skin cancer (~1997) Past Surgical History (Last Reviewed 08/12/21 @ 10:58 by Mgiuel Torres MD) Anesthesia History of appendectomy (~194) History of bladder surgery (~2016) History of tonsillectomy (~1949) History of umbilical hernia (~2003) S/P TAVR (transcatheter aortic valve replacement) (~2016) Visit Care Team Role Provider Type Keshawn Cruz MD Family Provider Physician Primary Care Provider Specialty: Internal Medicine Address: [address] [place] [address], [id number] Email: [email or web address] Randolph Dumont DO Attending Provider Non-Staff Referring Provider Specialty: Orthopedic Surgery Address: [address] [place] [address], [id number] Email: Physical Therapy Initial Evaluation PT-OP-A Visit Information Start: 01/04/22 11:15 Freq: Status: Active Protocol: Document 01/04/22 14:27 EMELI (Rec: 01/04/22 15:23 EMELI [id number]) Out-Patient Physical Therapy Visit Information Visit Information Visit Type Initial Evaluation Visit Start Time 14:28 Visit Stop Time 15:25 Total Visit Minutes 57 Visit Number 1 Evaluation Information Evaluation Date 01/04/22 Precautions Precautions cardiac: HTN, s/p aortic valve replacement 2017, arthritis PT-OP-B Current Condition Start: 01/04/22 11:15 Freq: Status: Active Protocol: Document 01/04/22 14:27 [facility] (Rec: 01/04/22 15:23 [facility] [id number]) Current Condition History of Current Condition Onset Date 1 1/2 years Current Complaints LE weakness and pain History of Current Condition 1 1/2 years ago fell while stepping down without realizing there was a step and twisted on his knee. Left knee was doing all lifting work after that, has old footbal injury, and it started to hurt. Dr. Cruz had x- rays done, ice, Tylenol, and rest recommended. Patient reports he thinks he was too patient. Spent a lot of time sitting. Feels he lost a lot of leg strength. Used a walker for quite awhile, still uses at time especially at night going to bathroom. Legs fatigue quickly. Going to [place] in May, concerned about mobility to be able to enjoy the trip. States he knows he also needs to lose about 40 lbs Hasn't done the exercises issued from Orthopedist yet. Has done aquatic therapy exercises previously given. Prior Treatments and Tests x-ray: arthritis bilateral knees fall 11 years ago with fractured hip Treatment Goals Patient/Caregiver Goals Improve strength, decrease pain, improve activity tolerance. Prior Functional Status Baseline Function- ADL's Independent Baseline Function- Mobility Independent Baseline Function- Gait no difficulty Baseline Function- Work/School retired Baseline Function- Recreation/Hobbies walking, golf Current Functional Impairments (Reported) Functional Limitations- ADL's increased time, painful Functional Limitations- Mobility/Gait decreased distance, painful Functional Limitations- Work/School retired Functional Limitations- Recreation/ hasn't golfed since fall Hobbies Personal Factors Other Personal Factors That May Effect age; patient 81 y/o, weight; Therapy/Recovery pt 6'0 and 292 lbs PT-OP-C Subjective Start: 01/04/22 11:15 Freq: Status: Active Protocol: Document 01/04/22 14:27 [facility] (Rec: 01/04/22 16:36 [facility] [id number]) Patient Questionnaires Lower Extremity Functional Scale LEFS Score 50% OP-PT Pain Assessment Pain Assessment Grid Paper Pain Assessment Grid Completed Yes Location bilateral knees Intensity 5 Pain Aggravating Factors Position,Activity Pain Alleviating Factors Rest Pain Behaviors Pain Behaviors Calling Out,Facial Grimacing, Wincing PT-OP-D Balance Start: 01/04/22 11:15 Freq: Status: Active Protocol: Document 01/04/22 14:27 [facility] (Rec: 01/04/22 16:36 [facility] [id number]) OP-PT Balance Assessment Sitting Balance Static Sitting Balance Ability Normal Dynamic Sitting Balance Ability Normal Standing Balance Static Standing Balance Ability Good Dynamic Standing Balance Ability Good Herrera Fall Scale Copyright Permission PT-OP-E Functional Tests Start: 01/04/22 11:15 Freq: Status: Active Protocol: Document 01/04/22 14:27 [facility] (Rec: 01/04/22 16:36 [facility] [id number]) Functional Tests 6 Minute Walk Test Distance 1128 Device Used none Comments antalgic, mild SOB PT-OP-G Mobility & Gait Start: 01/04/22 11:15 Freq: Status: Active Protocol: Document 01/04/22 14:27 [facility] (Rec: 01/04/22 16:36 [facility] [id number]) OP Mobility Evaluation Transfers Sit to Stand indep, no UE assist OP Gait Assessment Gait Gait Assistance Required: Independent Distance (Feet) 1,127 Able to Maintain Weight Bearing Status Yes During Gait Assistive Devices Assistive Device None Gait Deviations General Gait Pattern Antalgic Factors Limiting Gait Function Factors Limiting Gait Function Decreased Activity Tolerance, Pain Comments Gait Comments no LOB Stair Climbing Evaluation Evaluation Level of Assist On Stairs Standby Assistance Devices Stair Climbing Assistive Devices Left Railing,Right Railing Technique/Endurance Stair Climbing Direction Ascend and Descend Stair Climbing Technique Step to Step PT-OP-J Posture/Palpation/Skin Start: 01/04/22 11:15 Freq: Status: Active Protocol: Document 01/04/22 14:27 [facility] (Rec: 01/04/22 16:36 [facility] [id number]) Palpation Assessment Location medial knee joints Palpation Findings Tenderness PT-OP-K Range of Motion Start: 01/04/22 11:15 Freq: Status: Active Protocol: Document 01/04/22 14:27 [facility] (Rec: 01/04/22 16:36 [facility] [id number]) Hip Goniometric Range of Motion Hip ramses Flexion w/Knee Flexed 95 Straight Leg Raise 55 Extension 0 Abduction 30 Internal Rotation 10 External Rotation 40 Hip ROM Limitations Hip ROM Limitations Soft Tissue Tightness,Bony Restriction,Pain Knee Goniometric Range of Motion Knee ramses Flexion Active (degrees) 120 Extension Active (degrees) 10 Extension Passive (degrees) 5 Knee ROM Limitations Knee ROM Limitations Soft Tissue Tightness,Pain Ankle and Foot Goniometric Range of Motion Ankle and Foot ramses Dorsiflexion with Knee Flexed 5 Dorsiflexion with Knee Extended 0 Plantarflexion 40 Ankle and Foot ROM Limitations ROM Limitations Soft Tissue Tightness PT-OP-M Strength Start: 01/04/22 11:15 Freq: Status: Active Protocol: Document 01/04/22 14:27 [facility] (Rec: 01/04/22 15:23 [facility] [id number]) Hip Strength Hip Manual Muscle Testing Left Flexion (L2) 4 Good Extension (S1) 4- Good- Abduction 4- Good- External Rotation 4- Good- Internal Rotation 4 Good Right Flexion (L2) 4 Good Extension (S1) 4- Good- Abduction 4 Good External Rotation 4- Good- Internal Rotation 4 Good Knee Strength Knee Manual Muscle Testing ramses Flexion (S2) 4 Good Extension (L3) 4 Good Ankle/Foot Strength Ankle and Foot Manual Muscle Testing Left Dorsiflexion (L4) 4- Good- Plantarflexion (S1) 4- Good- Right Dorsiflexion (L4) 4+ Good+ Plantarflexion (S1) 4+ Good+ PT-OP-Q Treatments Start: 01/04/22 11:15 Freq: Status: Active Protocol: Document 01/04/22 14:27 [facility] (Rec: 01/04/22 16:36 [facility] [id number]) Self-Care/Home Management Treatment Education Patient Education Home Exercise Program Other Education bring HEP issued by physician to PT next session, consider trying heat to knees, do a few exercises prior to standing up from sitting to improve ease PT-OP-R Modalities Start: 01/04/22 11:15 Freq: Status: Active Protocol: Document 01/04/22 14:27 [facility] (Rec: 01/04/22 16:36 [facility] [id number]) Hot Pack/Cold Pack Treatment Hot Pack Location ramses knees Patient Position Hooklying Treatment Duration (minutes) 15 Patient Tolerance Good Comments strap around distal thighs PT-OP-T Assessment and Plan Start: 01/04/22 11:15 Freq: Status: Active Protocol: Document 01/04/22 14:27 [facility] (Rec: 01/04/22 16:36 [facility] [id number]) Physical Therapy Assessment Rehab Potential Rehabilitation Potential Good Evaluation Complexity Number of Personal Factors/Comorbidities 1-2 Number of Body Systems Impaired 3 Clinical Presentation at Evaluation Evolving Impairments Impairments Activity Tolerance,Pain,ROM, Strength Goals Three Impairment weakness and decreased flexibility bilateral LE's Impairment limits mobilty Short Term Goal (STG) Patient to be instructed in HEP for purposes of strengthening and flexibility to support activities in therapy STG Duration 02/16/22 Spa Director/Finance Goal (LTG) Patient to be independent and compliant with HEP and aquatic exercise program and demonsrate 5/5 muscle strength and LE ROM WNL LTG Duration 04/06/21 Two Impairment antalgic gait [facility] Goal (LTG) Improve pain sufficient to allow patient to ambulate without limp LTG Duration 04/06/21 One Impairment Impaired activity tolerance Impairment Lower extremity functional scale (LEFS) score 50% Short Term Goal (STG) Improve LEFS to at least 65% as measure of improved activity tolerance and functional strength STG Duration 02/16/22 Spa Director/Finance Goal (LTG) Improve LEFS to at least 75% as measure of improved activity tolerance and ability to return to prior level of function LTG Duration 04/06/21 Assessment Summary Assessment Patient presents to PT with c/ o function-limiting pain and weakness in his bilateral knees causing limitations in his activity tolerance and ability to do his usual activities. This appears to be related to a fall 1 1/2 years ago resulting in pain and decreased activity; patient reports he was too patient waiting for his body to heal and now has gained weight and is having more difficulty with mobility. He would benefit from PT to decrease his pain, improve his flexibility and strength in LE's, and help him to return to prior level of function. I recommended he also see a lift truck operator as he is interested in losing weight. Aquatic therapy is highly recommended for offloading of his joints to improve ease of mobility with strengthening. We discussed POC and he is in agreement. Physical Therapy Plan Frequency and Duration Frequency of Treatment 2x/Week Duration of treatment (weeks) 12 Plan of Care Start Date 01/04/22 Plan of Care End Date 04/06/21 Therapeutic Interventions Therapeutic Interventions Aquatic Therapy,Gait Training, Home Exercise Program,Manual Therapy,Neuromuscular Re- education,Patient/Caregiver Education,Self-Care/Home Management,Soft Tissue Mobilization,Therapeutic Activities,Therapeutic Exercises Modalities Cold Pack/Ice Massage,Electric Stimulation,Hot Packs Next Visit Focus/Plan Next Note Type Treatment Note Next Visit Plan Review HEP, assess response to moist heat to knees. Strengthening and flexibility ex as tolerated, update HEP.
--- NOTE | 2022-01-07 12:18 | PT.OTN ---
Current Diagnoses Other chronic pain (01/07/22) Unilateral post-traumatic osteoarthritis, right hip (01/07/22) Pain in right hip (01/07/22) Pain in right knee (01/07/22) Pain in left knee (01/07/22) Difficulty in walking, not elsewhere classified (01/07/22) Other symptoms and signs involving the musculoskeletal system (01/07/22) Physical Therapy Treatment Note PT-OP-A Visit Information Start: 01/04/22 11:15 Freq: Status: Active Protocol: Document 01/07/22 11:15 [facility] (Rec: 01/07/22 12:18 [facility] [id number]) Out-Patient Physical Therapy Visit Information Visit Information Visit Type Initial Evaluation Visit Start Time 11:16 Visit Stop Time 12:06 Total Visit Minutes 50 Visit Number 2 Evaluation Information Evaluation Date 01/04/22 Precautions Precautions cardiac: HTN, s/p aortic valve replacement 2017, arthritis PT-OP-B Current Condition Start: 01/04/22 11:15 Freq: Status: Active Protocol: Document 01/07/22 11:15 [facility] (Rec: 01/07/22 12:18 [facility] [id number]) Current Condition History of Current Condition Onset Date 1 1/2 years Current Complaints LE weakness and pain History of Current Condition 1 1/2 years ago fell while stepping down without realizing there was a step and twisted on his knee. Left knee was doing all lifting work after that, has old footbal injury, and it started to hurt. Dr. Cruz had x- rays done, ice, Tylenol, and rest recommended. Patient reports he thinks he was too patient. Spent a lot of time sitting. Feels he lost a lot of leg strength. Used a walker for quite awhile, still uses at time especially at night going to bathroom. Legs fatigue quickly. Going to [place] in May, concerned about mobility to be able to enjoy the trip. States he knows he also needs to lose about 40 lbs Hasn't done the exercises issued from Orthopedist yet. Has done aquatic therapy exercises previously given. Prior Treatments and Tests x-ray: arthritis bilateral knees fall 11 years ago with fractured hip Treatment Goals Patient/Caregiver Goals Improve strength, decrease pain, improve activity tolerance. Prior Functional Status Baseline Function- ADL's Independent Baseline Function- Mobility Independent Baseline Function- Gait no difficulty Baseline Function- Work/School retired Baseline Function- Recreation/Hobbies walking, golf PT-OP-C Subjective Start: 01/04/22 11:15 Freq: Status: Active Protocol: Document 01/07/22 11:15 [facility] (Rec: 01/07/22 12:18 [facility] [id number]) OP-PT Subjective Patient Comments Patient Comments No new c/o, brought exercises given by physician, has tried a few but they were very difficulty PT-OP-D Balance Start: 01/04/22 11:15 Freq: Status: Active Protocol: Document 01/04/22 14:27 [facility] (Rec: 01/04/22 16:36 [facility] [id number]) OP-PT Balance Assessment Sitting Balance Static Sitting Balance Ability Normal Dynamic Sitting Balance Ability Normal Standing Balance Static Standing Balance Ability Good Dynamic Standing Balance Ability Good Herrera Fall Scale Copyright Permission PT-OP-E Functional Tests Start: 01/04/22 11:15 Freq: Status: Active Protocol: Document 01/04/22 14:27 [facility] (Rec: 01/04/22 16:36 [facility] [id number]) Functional Tests 6 Minute Walk Test Distance 1128 Device Used none Comments antalgic, mild SOB PT-OP-G Mobility & Gait Start: 01/04/22 11:15 Freq: Status: Active Protocol: Document 01/04/22 14:27 [facility] (Rec: 01/04/22 16:36 [facility] [id number]) OP Mobility Evaluation Transfers Sit to Stand indep, no UE assist OP Gait Assessment Gait Gait Assistance Required: Independent Distance (Feet) 1,127 Able to Maintain Weight Bearing Status Yes During Gait Assistive Devices Assistive Device None Gait Deviations General Gait Pattern Antalgic Factors Limiting Gait Function Factors Limiting Gait Function Decreased Activity Tolerance, Pain Comments Gait Comments no LOB Stair Climbing Evaluation Evaluation Level of Assist On Stairs Standby Assistance Devices Stair Climbing Assistive Devices Left Railing,Right Railing Technique/Endurance Stair Climbing Direction Ascend and Descend Stair Climbing Technique Step to Step PT-OP-J Posture/Palpation/Skin Start: 01/04/22 11:15 Freq: Status: Active Protocol: Document 01/04/22 14:27 [facility] (Rec: 01/04/22 16:36 [facility] [id number]) Palpation Assessment Location medial knee joints Palpation Findings Tenderness PT-OP-K Range of Motion Start: 01/04/22 11:15 Freq: Status: Active Protocol: Document 01/04/22 14:27 [facility] (Rec: 01/04/22 16:36 [facility] [id number]) Hip Goniometric Range of Motion Hip ramses Flexion w/Knee Flexed 95 Straight Leg Raise 55 Extension 0 Abduction 30 Internal Rotation 10 External Rotation 40 Hip ROM Limitations Hip ROM Limitations Soft Tissue Tightness,Bony Restriction,Pain Knee Goniometric Range of Motion Knee ramses Flexion Active (degrees) 120 Extension Active (degrees) 10 Extension Passive (degrees) 5 Knee ROM Limitations Knee ROM Limitations Soft Tissue Tightness,Pain Ankle and Foot Goniometric Range of Motion Ankle and Foot ramses Dorsiflexion with Knee Flexed 5 Dorsiflexion with Knee Extended 0 Plantarflexion 40 Ankle and Foot ROM Limitations ROM Limitations Soft Tissue Tightness PT-OP-M Strength Start: 01/04/22 11:15 Freq: Status: Active Protocol: Document 01/04/22 14:27 [facility] (Rec: 01/04/22 15:23 [facility] [id number]) Hip Strength Hip Manual Muscle Testing Left Flexion (L2) 4 Good Extension (S1) 4- Good- Abduction 4- Good- External Rotation 4- Good- Internal Rotation 4 Good Right Flexion (L2) 4 Good Extension (S1) 4- Good- Abduction 4 Good External Rotation 4- Good- Internal Rotation 4 Good Knee Strength Knee Manual Muscle Testing ramses Flexion (S2) 4 Good Extension (L3) 4 Good Ankle/Foot Strength Ankle and Foot Manual Muscle Testing Left Dorsiflexion (L4) 4- Good- Plantarflexion (S1) 4- Good- Right Dorsiflexion (L4) 4+ Good+ Plantarflexion (S1) 4+ Good+ PT-OP-Q Treatments Start: 01/04/22 11:15 Freq: Status: Active Protocol: Document 01/07/22 11:15 [facility] (Rec: 01/07/22 12:18 [facility] [id number]) Cardio Equipment Recumbent Stepper (Sci-Fit) Duration (Minutes) 5 Resistance 1 Seat Position 11 Gym Equipment Shuttle Recovery Unilateral Squats Resistance 37 Reps/Time 10x ea Bilateral Squats Resistance 62 Reps/Time 15x Therapeutic Exercises Supine Exercises bridge Reps/Minutes 10x ball squeeze Reps/Minutes 10x hip/knee ext Resistance L2 TB Reps/Minutes 10x SLR Reps/Minutes 10x Comments cues for core activation, neutral LE alignment Sidelying Exercises hip ab Reps/Minutes 10x Comments cues for alignment Sitting Exercises LAQ Reps/Minutes 10x Comments cues for neutral LE alignment Standing Exercises heel raises Reps/Minutes 10x shallow squats Equipment Used ball Reps/Minutes 10x quad stretch Equipment Used chair Reps/Minutes 2x HC stretch Reps/Minutes 2x30 Self-Care/Home Management Treatment Education Patient Education Home Exercise Program Other Education went through handout from physician for knees (see ex as above); modifications to form and position, plus 3 exercise substitutions made with HO issued/picture modified for more appropriate ex PT-OP-R Modalities Start: 01/04/22 11:15 Freq: Status: Active Protocol: Document 01/07/22 11:15 [facility] (Rec: 01/07/22 12:18 [facility] [id number]) Hot Pack/Cold Pack Treatment Hot Pack Comments pt to do at home. PT-OP-T Assessment and Plan Start: 01/04/22 11:15 Freq: Status: Active Protocol: Document 01/07/22 11:15 [facility] (Rec: 01/07/22 12:18 [facility] [id number]) Physical Therapy Assessment Goals Three Impairment weakness and decreased flexibility bilateral LE's Impairment limits mobilty Short Term Goal (STG) Patient to be instructed in HEP for purposes of strengthening and flexibility to support activities in therapy STG Duration 02/16/22 [facility] Goal (LTG) Patient to be independent and compliant with HEP and aquatic exercise program and demonsrate 5/5 muscle strength and LE ROM WNL LTG Duration 04/06/21 Two Impairment antalgic gait [facility] Goal (LTG) Improve pain sufficient to allow patient to ambulate without limp LTG Duration 04/06/21 One Impairment Impaired activity tolerance Impairment Lower extremity functional scale (LEFS) score 50% Short Term Goal (STG) Improve LEFS to at least 65% as measure of improved activity tolerance and functional strength STG Duration 02/16/22 [facility] Goal (LTG) Improve LEFS to at least 75% as measure of improved activity tolerance and ability to return to prior level of function LTG Duration 04/06/21 Assessment Summary Assessment Fair tolerance for ther ex, much cueing needed for LE alignment and correct muscle activation sequencing. Modifications and substitutions made to knee program issued by physician, patient demonstrated good understanding. Reported fatigue level 3/10. Physical Therapy Plan Frequency and Duration Frequency of Treatment 2x/Week Duration of treatment (weeks) 12 Plan of Care Start Date 01/04/22 Plan of Care End Date 04/06/21 Therapeutic Interventions Therapeutic Interventions Aquatic Therapy,Gait Training, Home Exercise Program,Manual Therapy,Neuromuscular Re- education,Patient/Caregiver Education,Self-Care/Home Management,Soft Tissue Mobilization,Therapeutic Activities,Therapeutic Exercises Modalities Cold Pack/Ice Massage,Electric Stimulation,Hot Packs Next Visit Focus/Plan Next Note Type Treatment Note Next Visit Plan initiate aquatic PT
--- NOTE | 2022-01-11 13:54 | PT.OTN ---
Current Diagnoses Other chronic pain (01/11/22) Unilateral post-traumatic osteoarthritis, right hip (01/11/22) Pain in right hip (01/11/22) Pain in right knee (01/11/22) Pain in left knee (01/11/22) Difficulty in walking, not elsewhere classified (01/11/22) Other symptoms and signs involving the musculoskeletal system (01/11/22) Physical Therapy Treatment Note PT-OP-A Visit Information Start: 01/04/22 11:15 Freq: Status: Active Protocol: Document 01/11/22 13:46 [facility] (Rec: 01/11/22 13:50 [facility] [id number]) Out-Patient Physical Therapy Visit Information Visit Information Visit Type Aquatic Treatment Note Visit Start Time 11:00 Visit Stop Time 11:45 Total Visit Minutes 45 Visit Number 3 Evaluation Information Evaluation Date 01/04/22 Precautions Precautions cardiac: HTN, s/p aortic valve replacement 2017, arthritis PT-OP-B Current Condition Start: 01/04/22 11:15 Freq: Status: Active Protocol: Document 01/07/22 11:15 [facility] (Rec: 01/07/22 12:18 [facility] [id number]) Current Condition History of Current Condition Onset Date 1 1/2 years Current Complaints LE weakness and pain History of Current Condition 1 1/2 years ago fell while stepping down without realizing there was a step and twisted on his knee. Left knee was doing all lifting work after that, has old footbal injury, and it started to hurt. Dr. Cruz had x- rays done, ice, Tylenol, and rest recommended. Patient reports he thinks he was too patient. Spent a lot of time sitting. Feels he lost a lot of leg strength. Used a walker for quite awhile, still uses at time especially at night going to bathroom. Legs fatigue quickly. Going to [place] in May, concerned about mobility to be able to enjoy the trip. States he knows he also needs to lose about 40 lbs Hasn't done the exercises issued from Orthopedist yet. Has done aquatic therapy exercises previously given. Prior Treatments and Tests x-ray: arthritis bilateral knees fall 11 years ago with fractured hip Treatment Goals Patient/Caregiver Goals Improve strength, decrease pain, improve activity tolerance. Prior Functional Status Baseline Function- ADL's Independent Baseline Function- Mobility Independent Baseline Function- Gait no difficulty Baseline Function- Work/School retired Baseline Function- Recreation/Hobbies walking, golf PT-OP-C Subjective Start: 01/04/22 11:15 Freq: Status: Active Protocol: Document 01/11/22 13:46 [facility] (Rec: 01/11/22 13:50 [facility] [id number]) OP-PT Subjective Patient Comments Patient Comments Reports he may have overdone it with HEP, some increase in pain, states he often pushes too hard. Had 1 episode of his knee locking up after sitting in a restaurant for awhile. PT-OP-D Balance Start: 01/04/22 11:15 Freq: Status: Active Protocol: Document 01/04/22 14:27 [facility] (Rec: 01/04/22 16:36 [facility] [id number]) OP-PT Balance Assessment Sitting Balance Static Sitting Balance Ability Normal Dynamic Sitting Balance Ability Normal Standing Balance Static Standing Balance Ability Good Dynamic Standing Balance Ability Good Herrera Fall Scale Copyright Permission PT-OP-E Functional Tests Start: 01/04/22 11:15 Freq: Status: Active Protocol: Document 01/04/22 14:27 [facility] (Rec: 01/04/22 16:36 [facility] [id number]) Functional Tests 6 Minute Walk Test Distance 1128 Device Used none Comments antalgic, mild SOB PT-OP-G Mobility & Gait Start: 01/04/22 11:15 Freq: Status: Active Protocol: Document 01/04/22 14:27 [facility] (Rec: 01/04/22 16:36 [facility] [id number]) OP Mobility Evaluation Transfers Sit to Stand indep, no UE assist OP Gait Assessment Gait Gait Assistance Required: Independent Distance (Feet) 1,127 Able to Maintain Weight Bearing Status Yes During Gait Assistive Devices Assistive Device None Gait Deviations General Gait Pattern Antalgic Factors Limiting Gait Function Factors Limiting Gait Function Decreased Activity Tolerance, Pain Comments Gait Comments no LOB Stair Climbing Evaluation Evaluation Level of Assist On Stairs Standby Assistance Devices Stair Climbing Assistive Devices Left Railing,Right Railing Technique/Endurance Stair Climbing Direction Ascend and Descend Stair Climbing Technique Step to Step PT-OP-J Posture/Palpation/Skin Start: 01/04/22 11:15 Freq: Status: Active Protocol: Document 01/04/22 14:27 [facility] (Rec: 01/04/22 16:36 [facility] [id number]) Palpation Assessment Location medial knee joints Palpation Findings Tenderness PT-OP-K Range of Motion Start: 01/04/22 11:15 Freq: Status: Active Protocol: Document 01/04/22 14:27 [facility] (Rec: 01/04/22 16:36 [facility] [id number]) Hip Goniometric Range of Motion Hip ramses Flexion w/Knee Flexed 95 Straight Leg Raise 55 Extension 0 Abduction 30 Internal Rotation 10 External Rotation 40 Hip ROM Limitations Hip ROM Limitations Soft Tissue Tightness,Bony Restriction,Pain Knee Goniometric Range of Motion Knee ramses Flexion Active (degrees) 120 Extension Active (degrees) 10 Extension Passive (degrees) 5 Knee ROM Limitations Knee ROM Limitations Soft Tissue Tightness,Pain Ankle and Foot Goniometric Range of Motion Ankle and Foot ramses Dorsiflexion with Knee Flexed 5 Dorsiflexion with Knee Extended 0 Plantarflexion 40 Ankle and Foot ROM Limitations ROM Limitations Soft Tissue Tightness PT-OP-M Strength Start: 01/04/22 11:15 Freq: Status: Active Protocol: Document 01/04/22 14:27 [facility] (Rec: 01/04/22 15:23 [facility] [id number]) Hip Strength Hip Manual Muscle Testing Left Flexion (L2) 4 Good Extension (S1) 4- Good- Abduction 4- Good- External Rotation 4- Good- Internal Rotation 4 Good Right Flexion (L2) 4 Good Extension (S1) 4- Good- Abduction 4 Good External Rotation 4- Good- Internal Rotation 4 Good Knee Strength Knee Manual Muscle Testing ramses Flexion (S2) 4 Good Extension (L3) 4 Good Ankle/Foot Strength Ankle and Foot Manual Muscle Testing Left Dorsiflexion (L4) 4- Good- Plantarflexion (S1) 4- Good- Right Dorsiflexion (L4) 4+ Good+ Plantarflexion (S1) 4+ Good+ PT-OP-Q Treatments Start: 01/04/22 11:15 Freq: Status: Active Protocol: Document 01/07/22 11:15 [facility] (Rec: 01/07/22 12:18 [facility] [id number]) Cardio Equipment Recumbent Stepper (Sci-Fit) Duration (Minutes) 5 Resistance 1 Seat Position 11 Gym Equipment Shuttle Recovery Unilateral Squats Resistance 37 Reps/Time 10x ea Bilateral Squats Resistance 62 Reps/Time 15x Therapeutic Exercises Supine Exercises bridge Reps/Minutes 10x ball squeeze Reps/Minutes 10x hip/knee ext Resistance L2 TB Reps/Minutes 10x SLR Reps/Minutes 10x Comments cues for core activation, neutral LE alignment Sidelying Exercises hip ab Reps/Minutes 10x Comments cues for alignment Sitting Exercises LAQ Reps/Minutes 10x Comments cues for neutral LE alignment Standing Exercises heel raises Reps/Minutes 10x shallow squats Equipment Used ball Reps/Minutes 10x quad stretch Equipment Used chair Reps/Minutes 2x HC stretch Reps/Minutes 2x30 Self-Care/Home Management Treatment Education Patient Education Home Exercise Program Other Education went through handout from physician for knees (see ex as above); modifications to form and position, plus 3 exercise substitutions made with HO issued/picture modified for more appropriate ex PT-OP-R Modalities Start: 01/04/22 11:15 Freq: Status: Active Protocol: Document 01/07/22 11:15 [facility] (Rec: 01/07/22 12:18 [facility] [id number]) Hot Pack/Cold Pack Treatment Hot Pack Comments pt to do at home. PT-OP-S Aquatic Treatment Start: 01/04/22 11:15 Freq: Status: Active Protocol: Document 01/11/22 13:46 [facility] (Rec: 01/11/22 13:50 [facility] [id number]) Aquatics Treatment Pool Entry/Exit Pool Entry/Exit Method Stairs Assistance Independent Water Walking [place] Water Level Chest Level Level of Assistance Verbal Cues Marching Water Level Chest Level Level of Assistance Verbal Cues Sideways Water Level Chest Level Level of Assistance Verbal Cues Backwards Water Level Chest Level Level of Assistance Verbal Cues Forwards Water Level Chest Level Level of Assistance Verbal Cues Lower Extremity Exercises 4-way hip Body Position Standing Water Level Chest Level Reps/Duration 10x ea knee flex/ext Body Position Standing Water Level Chest Level squat Body Position Standing Water Level Waist Level Reps/Duration 10x heel raise,toe raise Reps/Duration 10x ea Lower Extremity Stretches HC Details stair Reps/Duration 2x quad Body Position Standing Equipment Small Noodle Reps/Duration 2x30 HS Body Position Standing Water Level Chest Level Equipment Small Noodle Reps/Duration 2x30 [place]imley Activities Br[place]ley Activities Bicycle Backwards,[place],Running Other Activities deep water hang x 1 min SKTC at ladder Equipment large noodle Duration 10 min PT-OP-T Assessment and Plan Start: 01/04/22 11:15 Freq: Status: Active Protocol: Document 01/11/22 13:46 [facility] (Rec: 01/11/22 13:50 [facility] [id number]) Physical Therapy Assessment Rehab Potential Rehabilitation Potential Good Evaluation Complexity Number of Personal Factors/Comorbidities 1-2 Number of Body Systems Impaired 3 Clinical Presentation at Evaluation Evolving Impairments Impairments Activity Tolerance,Pain,ROM, Strength Goals Three Impairment weakness and decreased flexibility bilateral LE's Impairment limits mobilty Short Term Goal (STG) Patient to be instructed in HEP for purposes of strengthening and flexibility to support activities in therapy STG Duration 02/16/22 [facility] Finisher Goal (LTG) Patient to be independent and compliant with HEP and aquatic exercise program and demonsrate 08/06 muscle strength and LE ROM WNL LTG Duration 04/06/21 Two Impairment antalgic gait [facility] Goal (LTG) Improve pain sufficient to allow patient to ambulate without limp LTG Duration 04/06/21 One Impairment Impaired activity tolerance Impairment Lower extremity functional scale (LEFS) score 50% Short Term Goal (STG) Improve LEFS to at least 65% as measure of improved activity tolerance and functional strength STG Duration 02/16/22 Tip Finisher Goal (LTG) Improve LEFS to at least 75% as measure of improved activity tolerance and ability to return to prior level of function LTG Duration 04/06/21 Physical Therapy Plan Frequency and Duration Frequency of Treatment 2x/Week Duration of treatment (weeks) 12 Plan of Care Start Date 01/04/22 Plan of Care End Date 04/06/21 Therapeutic Interventions Therapeutic Interventions Aquatic Therapy,Gait Training, Home Exercise Program,Manual Therapy,Neuromuscular Re- education,Patient/Caregiver Education,Self-Care/Home Management,Soft Tissue Mobilization,Therapeutic Activities,Therapeutic Exercises Modalities Cold Pack/Ice Massage,Electric Stimulation,Hot Packs Next Visit Focus/Plan Next Note Type Treatment Note Next Visit Plan ASsess respnse to aquatic PT and progress as tolerated for LE strengthening and ROM, emphasis on core stab with all .
--- NOTE | 2022-01-14 12:13 | PT.OTN ---
Current Diagnoses Other chronic pain (01/14/22) Unilateral post-traumatic osteoarthritis, right hip (01/14/22) Pain in right hip (01/14/22) Pain in right knee (01/14/22) Pain in left knee (01/14/22) Difficulty in walking, not elsewhere classified (01/14/22) Other symptoms and signs involving the musculoskeletal system (01/14/22) Physical Therapy Treatment Note PT-OP-A Visit Information Start: 01/04/22 11:15 Freq: Status: Active Protocol: Document 01/14/22 11:19 [facility] (Rec: 01/14/22 12:09 [facility] [id number]) Out-Patient Physical Therapy Visit Information Visit Information Visit Type Treatment Note Visit Start Time 11:20 Visit Number 4 Precautions Precautions cardiac: HTN, s/p aortic valve replacement 2017, arthritis PT-OP-B Current Condition Start: 01/04/22 11:15 Freq: Status: Active Protocol: Document 01/14/22 11:19 [facility] (Rec: 01/14/22 12:09 [facility] [id number]) Current Condition History of Current Condition Onset Date 1 1/2 years Current Complaints LE weakness and pain History of Current Condition 1 1/2 years ago fell while stepping down without realizing there was a step and twisted on his knee. Left knee was doing all lifting work after that, has old footbal injury, and it started to hurt. Dr. Cruz had x- rays done, ice, Tylenol, and rest recommended. Patient reports he thinks he was too patient. Spent a lot of time sitting. Feels he lost a lot of leg strength. Used a walker for quite awhile, still uses at time especially at night going to bathroom. Legs fatigue quickly. Going to [place] in May, concerned about mobility to be able to enjoy the trip. States he knows he also needs to lose about 40 lbs Hasn't done the exercises issued from Orthopedist yet. Has done aquatic therapy exercises previously given. Prior Treatments and Tests x-ray: arthritis bilateral knees fall 11 years ago with fractured hip Treatment Goals Patient/Caregiver Goals Improve strength, decrease pain, improve activity tolerance. PT-OP-C Subjective Start: 01/04/22 11:15 Freq: Status: Active Protocol: Document 01/14/22 11:19 [facility] (Rec: 01/14/22 12:09 [facility] [id number]) OP-PT Subjective Patient Comments Patient Comments Reports fatigue after aquatic PT, took nap in afternoon. States my legs always feel better and I feel like I move better after PT. PT-OP-D Balance Start: 01/04/22 11:15 Freq: Status: Active Protocol: Document 01/04/22 14:27 [facility] (Rec: 01/04/22 16:36 [facility] [id number]) OP-PT Balance Assessment Sitting Balance Static Sitting Balance Ability Normal Dynamic Sitting Balance Ability Normal Standing Balance Static Standing Balance Ability Good Dynamic Standing Balance Ability Good Herrera Fall Scale Copyright Permission PT-OP-E Functional Tests Start: 01/04/22 11:15 Freq: Status: Active Protocol: Document 01/04/22 14:27 [facility] (Rec: 01/04/22 16:36 [facility] [id number]) Functional Tests 6 Minute Walk Test Distance 1128 Device Used none Comments antalgic, mild SOB PT-OP-G Mobility & Gait Start: 01/04/22 11:15 Freq: Status: Active Protocol: Document 01/04/22 14:27 [facility] (Rec: 01/04/22 16:36 [facility] [id number]) OP Mobility Evaluation Transfers Sit to Stand indep, no UE assist OP Gait Assessment Gait Gait Assistance Required: Independent Distance (Feet) 1,127 Able to Maintain Weight Bearing Status Yes During Gait Assistive Devices Assistive Device None Gait Deviations General Gait Pattern Antalgic Factors Limiting Gait Function Factors Limiting Gait Function Decreased Activity Tolerance, Pain Comments Gait Comments no LOB Stair Climbing Evaluation Evaluation Level of Assist On Stairs Standby Assistance Devices Stair Climbing Assistive Devices Left Railing,Right Railing Technique/Endurance Stair Climbing Direction Ascend and Descend Stair Climbing Technique Step to Step PT-OP-J Posture/Palpation/Skin Start: 01/04/22 11:15 Freq: Status: Active Protocol: Document 01/04/22 14:27 [facility] (Rec: 01/04/22 16:36 [facility] [id number]) Palpation Assessment Location medial knee joints Palpation Findings Tenderness PT-OP-K Range of Motion Start: 01/04/22 11:15 Freq: Status: Active Protocol: Document 01/04/22 14:27 [facility] (Rec: 01/04/22 16:36 [facility] [id number]) Hip Goniometric Range of Motion Hip ramses Flexion w/Knee Flexed 95 Straight Leg Raise 55 Extension 0 Abduction 30 Internal Rotation 10 External Rotation 40 Hip ROM Limitations Hip ROM Limitations Soft Tissue Tightness,Bony Restriction,Pain Knee Goniometric Range of Motion Knee ramses Flexion Active (degrees) 120 Extension Active (degrees) 10 Extension Passive (degrees) 5 Knee ROM Limitations Knee ROM Limitations Soft Tissue Tightness,Pain Ankle and Foot Goniometric Range of Motion Ankle and Foot ramses Dorsiflexion with Knee Flexed 5 Dorsiflexion with Knee Extended 0 Plantarflexion 40 Ankle and Foot ROM Limitations ROM Limitations Soft Tissue Tightness PT-OP-M Strength Start: 01/04/22 11:15 Freq: Status: Active Protocol: Document 01/04/22 14:27 [facility] (Rec: 01/04/22 15:23 [facility] [id number]) Hip Strength Hip Manual Muscle Testing Left Flexion (L2) 4 Good Extension (S1) 4- Good- Abduction 4- Good- External Rotation 4- Good- Internal Rotation 4 Good Right Flexion (L2) 4 Good Extension (S1) 4- Good- Abduction 4 Good External Rotation 4- Good- Internal Rotation 4 Good Knee Strength Knee Manual Muscle Testing ramses Flexion (S2) 4 Good Extension (L3) 4 Good Ankle/Foot Strength Ankle and Foot Manual Muscle Testing Left Dorsiflexion (L4) 4- Good- Plantarflexion (S1) 4- Good- Right Dorsiflexion (L4) 4+ Good+ Plantarflexion (S1) 4+ Good+ PT-OP-Q Treatments Start: 01/04/22 11:15 Freq: Status: Active Protocol: Document 01/14/22 11:19 [facility] (Rec: 01/14/22 12:09 [facility] [id number]) Cardio Equipment Recumbent Stepper (Sci-Fit) Duration (Minutes) 5 Resistance 1.5 Seat Position 16 Other cues for LE alignment Gym Equipment Shuttle Recovery Unilateral Squats Resistance 37 Reps/Time 10x ea Bilateral Squats Resistance 62 Reps/Time 15x Shuttle Balance 1 Details chains red Reps/Duration bal and wt shift Therapeutic Exercises Supine Exercises HS stretch Reps/Minutes 2x30 Comments manual while resting on shuttle leg press Sidelying Exercises hip ab Sidelying Exercise Name HEP Comments review next sesion Sitting Exercises hamstring curl Equipment Used L2 TB Reps/Minutes 10x LAQ Sitting Exercise Name HEP Standing Exercises resisted walk Standing Exercise Name side,fwd,bck Resistance yellow Equipment Used hallway bar Reps/Minutes 1 length each heel raises Standing Exercise Name HEP shallow squats Reps/Minutes 10x Comments yardstick as cue to prevent knees going over toes HC stretch Equipment Used KAYLA Reps/Minutes 2x30 Self-Care/Home Management Treatment Education Patient Education Home Exercise Program,Joint Protection,Posture PT-OP-R Modalities Start: 01/04/22 11:15 Freq: Status: Active Protocol: Document 01/14/22 11:19 [facility] (Rec: 01/14/22 12:13 [facility] [id number]) Hot Pack/Cold Pack Treatment Hot Pack Location bilataeral knees Patient Position Hooklying Treatment Duration (minutes) 15 Patient Tolerance Good Comments strap around distal thighs PT-OP-S Aquatic Treatment Start: 01/04/22 11:15 Freq: Status: Active Protocol: Document 01/11/22 13:46 [facility] (Rec: 01/11/22 13:50 [facility] [id number]) Aquatics Treatment Pool Entry/Exit Pool Entry/Exit Method Stairs Assistance Independent Water Walking [place] March Water Level Chest Level Level of Assistance Verbal Cues Marching Water Level Chest Level Level of Assistance Verbal Cues Sideways Water Level Chest Level Level of Assistance Verbal Cues Backwards Water Level Chest Level Level of Assistance Verbal Cues Forwards Water Level Chest Level Level of Assistance Verbal Cues Lower Extremity Exercises 4-way hip Body Position Standing Water Level Chest Level Reps/Duration 10x ea knee flex/ext Body Position Standing Water Level Chest Level squat Body Position Standing Water Level Waist Level Reps/Duration 10x heel raise,toe raise Reps/Duration 10x ea Lower Extremity Stretches HC Details stair Reps/Duration 2x quad Body Position Standing Equipment Small Noodle Reps/Duration 2x30 HS Body Position Standing Water Level Chest Level Equipment Small Noodle Reps/Duration 2x30 [place] Activities [place] Activities Bicycle Backwards,Cross [place],Running Other Activities deep water hang x 1 min SKTC at ladder Equipment large noodle Duration 10 min PT-OP-T Assessment and Plan Start: 01/04/22 11:15 Freq: Status: Active Protocol: Document 01/14/22 11:19 [facility] (Rec: 01/14/22 12:09 [facility] [id number]) Physical Therapy Assessment Impairments Impairments Activity Tolerance,Pain,ROM, Strength Goals Three Impairment weakness and decreased flexibility bilateral LE's Impairment limits mobilty Short Term Goal (STG) Patient to be instructed in HEP for purposes of strengthening and flexibility to support activities in therapy STG Duration 02/16/22 [facility] Goal (LTG) Patient to be independent and compliant with HEP and aquatic exercise program and demonsrate 5/ muscle strength and LE ROM WNL LTG Duration 04/06/21 Two Impairment antalgic gait [facility] Goal (LTG) Improve pain sufficient to allow patient to ambulate without limp LTG Duration 04/06/21 One Impairment Impaired activity tolerance Impairment Lower extremity functional scale (LEFS) score 50% Short Term Goal (STG) Improve LEFS to at least 65% as measure of improved activity tolerance and functional strength STG Duration 02/16/22 [employer] Goal (LTG) Improve LEFS to at least 75% as measure of improved activity tolerance and ability to return to prior level of function LTG Duration 04/06/21 Physical Therapy Plan Frequency and Duration Frequency of Treatment 2x/Week Duration of treatment (weeks) 12 Plan of Care Start Date 01/04/22 Plan of Care End Date 04/06/21 Therapeutic Interventions Therapeutic Interventions Aquatic Therapy,Gait Training, Home Exercise Program,Manual Therapy,Neuromuscular Re- education,Patient/Caregiver Education,Self-Care/Home Management,Soft Tissue Mobilization,Therapeutic Activities,Therapeutic Exercises Modalities Cold Pack/Ice Massage,Electric Stimulation,Hot Packs
--- NOTE | 2022-01-18 14:34 | PT.OTN ---
Current Diagnoses Other chronic pain (01/14/22) Unilateral post-traumatic osteoarthritis, right hip (01/14/22) Pain in right hip (01/14/22) Pain in right knee (01/14/22) Pain in left knee (01/14/22) Difficulty in walking, not elsewhere classified (01/14/22) Other symptoms and signs involving the musculoskeletal system (01/14/22) Physical Therapy Treatment Note PT-OP-A Visit Information Start: 01/04/22 11:15 Freq: Status: Active Protocol: Document 01/18/22 14:30 [facility] (Rec: 01/18/22 14:34 [facility] [id number]) Out-Patient Physical Therapy Visit Information Visit Information Visit Type Treatment Note Visit Start Time 11:00 Visit Stop Time 11:45 Total Visit Minutes 45 Visit Number 5 Precautions Precautions cardiac: HTN, s/p aortic valve replacement 2017, arthritis PT-OP-B Current Condition Start: 01/04/22 11:15 Freq: Status: Active Protocol: Document 01/18/22 14:30 [facility] (Rec: 01/18/22 14:34 [facility] [id number]) Current Condition History of Current Condition Onset Date 1 1/2 years Current Complaints LE weakness and pain History of Current Condition 1 1/2 years ago fell while stepping down without realizing there was a step and twisted on his knee. Left knee was doing all lifting work after that, has old footbal injury, and it started to hurt. Dr. Cruz had x- rays done, ice, Tylenol, and rest recommended. Patient reports he thinks he was too patient. Spent a lot of time sitting. Feels he lost a lot of leg strength. Used a walker for quite awhile, still uses at time especially at night going to bathroom. Legs fatigue quickly. Going to [place] in May, concerned about mobility to be able to enjoy the trip. States he knows he also needs to lose about 40 lbs Hasn't done the exercises issued from Orthopedist yet. Has done aquatic therapy exercises previously given. Prior Treatments and Tests x-ray: arthritis bilateral knees fall 11 years ago with fractured hip PT-OP-C Subjective Start: 01/04/22 11:15 Freq: Status: Active Protocol: Document 01/18/22 14:30 [facility] (Rec: 01/18/22 14:34 [facility] [id number]) OP-PT Subjective Patient Comments Patient Comments Reports fees PT is helping. PT-OP-D Balance Start: 01/04/22 11:15 Freq: Status: Active Protocol: Document 01/04/22 14:27 [facility] (Rec: 01/04/22 16:36 [facility] [id number]) OP-PT Balance Assessment Sitting Balance Static Sitting Balance Ability Normal Dynamic Sitting Balance Ability Normal Standing Balance Static Standing Balance Ability Good Dynamic Standing Balance Ability Good Herrera Fall Scale Copyright Permission PT-OP-E Functional Tests Start: 01/04/22 11:15 Freq: Status: Active Protocol: Document 01/04/22 14:27 [facility] (Rec: 01/04/22 16:36 [facility] [id number]) Functional Tests 6 Minute Walk Test Distance 1128 Device Used none Comments antalgic, mild SOB PT-OP-G Mobility & Gait Start: 01/04/22 11:15 Freq: Status: Active Protocol: Document 01/04/22 14:27 [facility] (Rec: 01/04/22 16:36 [facility] [id number]) OP Mobility Evaluation Transfers Sit to Stand indep, no UE assist OP Gait Assessment Gait Gait Assistance Required: Independent Distance (Feet) 1,127 Able to Maintain Weight Bearing Status Yes During Gait Assistive Devices Assistive Device None Gait Deviations General Gait Pattern Antalgic Factors Limiting Gait Function Factors Limiting Gait Function Decreased Activity Tolerance, Pain Comments Gait Comments no LOB Stair Climbing Evaluation Evaluation Level of Assist On Stairs Standby Assistance Devices Stair Climbing Assistive Devices Left Railing,Right Railing Technique/Endurance Stair Climbing Direction Ascend and Descend Stair Climbing Technique Step to Step PT-OP-J Posture/Palpation/Skin Start: 01/04/22 11:15 Freq: Status: Active Protocol: Document 01/04/22 14:27 [facility] (Rec: 01/04/22 16:36 [facility] [id number]) Palpation Assessment Location medial knee joints Palpation Findings Tenderness PT-OP-K Range of Motion Start: 01/04/22 11:15 Freq: Status: Active Protocol: Document 01/04/22 14:27 [facility] (Rec: 01/04/22 16:36 [facility] [id number]) Hip Goniometric Range of Motion Hip ramses Flexion w/Knee Flexed 95 Straight Leg Raise 55 Extension 0 Abduction 30 Internal Rotation 10 External Rotation 40 Hip ROM Limitations Hip ROM Limitations Soft Tissue Tightness,Bony Restriction,Pain Knee Goniometric Range of Motion Knee ramses Flexion Active (degrees) 120 Extension Active (degrees) 10 Extension Passive (degrees) 5 Knee ROM Limitations Knee ROM Limitations Soft Tissue Tightness,Pain Ankle and Foot Goniometric Range of Motion Ankle and Foot ramses Dorsiflexion with Knee Flexed 5 Dorsiflexion with Knee Extended 0 Plantarflexion 40 Ankle and Foot ROM Limitations ROM Limitations Soft Tissue Tightness PT-OP-M Strength Start: 01/04/22 11:15 Freq: Status: Active Protocol: Document 01/04/22 14:27 [facility] (Rec: 01/04/22 15:23 [facility] [id number]) Hip Strength Hip Manual Muscle Testing Left Flexion (L2) 4 Good Extension (S1) 4- Good- Abduction 4- Good- External Rotation 4- Good- Internal Rotation 4 Good Right Flexion (L2) 4 Good Extension (S1) 4- Good- Abduction 4 Good External Rotation 4- Good- Internal Rotation 4 Good Knee Strength Knee Manual Muscle Testing ramses Flexion (S2) 4 Good Extension (L3) 4 Good Ankle/Foot Strength Ankle and Foot Manual Muscle Testing Left Dorsiflexion (L4) 4- Good- Plantarflexion (S1) 4- Good- Right Dorsiflexion (L4) 4+ Good+ Plantarflexion (S1) 4+ Good+ PT-OP-Q Treatments Start: 01/04/22 11:15 Freq: Status: Active Protocol: Document 01/14/22 11:19 [facility] (Rec: 01/14/22 12:09 [facility] [id number]) Cardio Equipment Recumbent Stepper (Sci-Fit) Duration (Minutes) 5 Resistance 1.5 Seat Position 16 Other cues for LE alignment Gym Equipment Shuttle Recovery Unilateral Squats Resistance 37 Reps/Time 10x ea Bilateral Squats Resistance 62 Reps/Time 15x Shuttle Balance 1 Details chains red Reps/Duration bal and wt shift Therapeutic Exercises Supine Exercises HS stretch Reps/Minutes 2x30 Comments manual while resting on shuttle leg press Sidelying Exercises hip ab Sidelying Exercise Name HEP Comments review next sesion Sitting Exercises hamstring curl Equipment Used L2 TB Reps/Minutes 10x LAQ Sitting Exercise Name HEP Standing Exercises resisted walk Standing Exercise Name side,fwd,bck Resistance yellow Equipment Used hallway bar Reps/Minutes 1 length each heel raises Standing Exercise Name HEP shallow squats Reps/Minutes 10x Comments yardstick as cue to prevent knees going over toes HC stretch Equipment Used KAYLA Reps/Minutes 2x30 Self-Care/Home Management Treatment Education Patient Education Home Exercise Program,Joint Protection,Posture PT-OP-R Modalities Start: 01/04/22 11:15 Freq: Status: Active Protocol: Document 01/14/22 11:19 [facility] (Rec: 01/14/22 12:13 [facility] [id number]) Hot Pack/Cold Pack Treatment Hot Pack Location bilataeral knees Patient Position Hooklying Treatment Duration (minutes) 15 Patient Tolerance Good Comments strap around distal thighs PT-OP-S Aquatic Treatment Start: 01/04/22 11:15 Freq: Status: Active Protocol: Document 01/18/22 14:30 [facility] (Rec: 01/18/22 14:34 [facility] [id number]) Aquatics Treatment Pool Entry/Exit Pool Entry/Exit Method Stairs Assistance Independent Water Walking [place] Water Level Chest Level Level of Assistance Verbal Cues Marching Water Level Chest Level Level of Assistance Verbal Cues Sideways Water Level Chest Level Level of Assistance Verbal Cues Backwards Water Level Chest Level Level of Assistance Verbal Cues Forwards Water Level Chest Level Level of Assistance Verbal Cues Lower Extremity Exercises 4-way hip Body Position Standing Water Level Chest Level Reps/Duration 20x ea knee flex/ext Body Position Standing Water Level Chest Level Reps/Duration 20 squat Body Position Standing Water Level Waist Level Reps/Duration 10x Lower Extremity Stretches HC Details stair Reps/Duration 2x quad Body Position Standing Equipment Small Noodle Reps/Duration 2x30 HS Body Position Standing Water Level Chest Level Equipment Small Noodle Reps/Duration 2x30 [place] Activities [place] Activities Bicycle,Bicycle Backwards, Cross [place],Running Other Activities deep water hang x 1 min SKTC at ladder Equipment large noodle Duration 10 min PT-OP-T Assessment and Plan Start: 01/04/22 11:15 Freq: Status: Active Protocol: Document 01/18/22 14:30 [facility] (Rec: 01/18/22 14:34 [facility] [id number]) Physical Therapy Assessment Goals Three Impairment weakness and decreased flexibility bilateral LE's Impairment limits mobilty Short Term Goal (STG) Patient to be instructed in HEP for purposes of strengthening and flexibility to support activities in therapy STG Duration 02/16/22 [facility] Goal (LTG) Patient to be independent and compliant with HEP and aquatic exercise program and demonsrate 5/5 muscle strength and LE ROM WNL LTG Duration 04/06/21 Two Impairment antalgic gait [employer] Goal (LTG) Improve pain sufficient to allow patient to ambulate without limp LTG Duration 04/06/21 One Impairment Impaired activity tolerance Impairment Lower extremity functional scale (LEFS) score 50% Short Term Goal (STG) Improve LEFS to at least 65% as measure of improved activity tolerance and functional strength STG Duration 02/16/22 [facility] Goal (LTG) Improve LEFS to at least 75% as measure of improved activity tolerance and ability to return to prior level of function LTG Duration 04/06/21 Assessment Summary Assessment Patient reportiong positive effects from aquatic therapy, compliant to HEP. Ready for additin of resistance fins for next session. Physical Therapy Plan Frequency and Duration Frequency of Treatment 2x/Week Duration of treatment (weeks) 12 Plan of Care Start Date 01/04/22 Plan of Care End Date 04/06/21 Therapeutic Interventions Therapeutic Interventions Aquatic Therapy,Gait Training, Home Exercise Program,Manual Therapy,Neuromuscular Re- education,Patient/Caregiver Education,Self-Care/Home Management,Soft Tissue Mobilization,Therapeutic Activities,Therapeutic Exercises Modalities Cold Pack/Ice Massage,Electric Stimulation,Hot Packs Next Visit Focus/Plan Next Note Type Treatment Note Next Visit Plan Continue progression of ther ex for strengthening and flexibility in aquatic PT primarily. Add resistance fins for walking drills and LE ex.
--- NOTE | 2022-01-21 12:03 | PT.OTN ---
Current Diagnoses Other chronic pain (01/21/22) Unilateral post-traumatic osteoarthritis, right hip (01/21/22) Pain in right hip (01/21/22) Pain in right knee (01/21/22) Pain in left knee (01/21/22) Difficulty in walking, not elsewhere classified (01/21/22) Other symptoms and signs involving the musculoskeletal system (01/21/22) Physical Therapy Treatment Note PT-OP-A Visit Information Start: 01/04/22 11:15 Freq: Status: Active Protocol: Document 01/21/22 11:19 SAK (Rec: 01/21/22 12:03 [facility] [id number]) Out-Patient Physical Therapy Visit Information Visit Information Visit Type Treatment Note Visit Start Time 11:20 Visit Stop Time 12:15 Total Visit Minutes 55 Visit Number 6 Precautions Precautions cardiac: HTN, s/p aortic valve replacement 2017, arthritis PT-OP-B Current Condition Start: 01/04/22 11:15 Freq: Status: Active Protocol: Document 01/21/22 11:19 SAK (Rec: 01/21/22 12:03 [facility] [id number]) Current Condition History of Current Condition Onset Date 1 1/2 years Current Complaints LE weakness and pain History of Current Condition 1 1/2 years ago fell while stepping down without realizing there was a step and twisted on his knee. Left knee was doing all lifting work after that, has old footbal injury, and it started to hurt. Dr. Cruz had x- rays done, ice, Tylenol, and rest recommended. Patient reports he thinks he was too patient. Spent a lot of time sitting. Feels he lost a lot of leg strength. Used a walker for quite awhile, still uses at time especially at night going to bathroom. Legs fatigue quickly. Going to [place] in May, concerned about mobility to be able to enjoy the trip. States he knows he also needs to lose about 40 lbs Hasn't done the exercises issued from Orthopedist yet. Has done aquatic therapy exercises previously given. Prior Treatments and Tests x-ray: arthritis bilateral knees fall 11 years ago with fractured hip Treatment Goals Patient/Caregiver Goals Improve strength, decrease pain, improve activity tolerance. PT-OP-C Subjective Start: 01/04/22 11:15 Freq: Status: Active Protocol: Document 01/21/22 11:19 SAK (Rec: 01/21/22 12:03 [facility] [id number]) OP-PT Subjective Patient Comments Patient Comments No new c/o. Compliant to HEP. Still pain inside of knees right greater than left. Has a hard time not letting knees fall out to the side when sitting. PT-OP-D Balance Start: 01/04/22 11:15 Freq: Status: Active Protocol: Document 01/04/22 14:27 [facility] (Rec: 01/04/22 16:36 [facility] [id number]) OP-PT Balance Assessment Sitting Balance Static Sitting Balance Ability Normal Dynamic Sitting Balance Ability Normal Standing Balance Static Standing Balance Ability Good Dynamic Standing Balance Ability Good Herrera Fall Scale Copyright Permission PT-OP-E Functional Tests Start: 01/04/22 11:15 Freq: Status: Active Protocol: Document 01/04/22 14:27 [facility] (Rec: 01/04/22 16:36 [facility] [id number]) Functional Tests 6 Minute Walk Test Distance 1128 Device Used none Comments antalgic, mild SOB PT-OP-G Mobility & Gait Start: 01/04/22 11:15 Freq: Status: Active Protocol: Document 01/04/22 14:27 [facility] (Rec: 01/04/22 16:36 [facility] [id number]) OP Mobility Evaluation Transfers Sit to Stand indep, no UE assist OP Gait Assessment Gait Gait Assistance Required: Independent Distance (Feet) 1,127 Able to Maintain Weight Bearing Status Yes During Gait Assistive Devices Assistive Device None Gait Deviations General Gait Pattern Antalgic Factors Limiting Gait Function Factors Limiting Gait Function Decreased Activity Tolerance, Pain Comments Gait Comments no LOB Stair Climbing Evaluation Evaluation Level of Assist On Stairs Standby Assistance Devices Stair Climbing Assistive Devices Left Railing,Right Railing Technique/Endurance Stair Climbing Direction Ascend and Descend Stair Climbing Technique Step to Step PT-OP-J Posture/Palpation/Skin Start: 01/04/22 11:15 Freq: Status: Active Protocol: Document 01/04/22 14:27 [facility] (Rec: 01/04/22 16:36 [facility] [id number]) Palpation Assessment Location medial knee joints Palpation Findings Tenderness PT-OP-K Range of Motion Start: 01/04/22 11:15 Freq: Status: Active Protocol: Document 01/04/22 14:27 [facility] (Rec: 01/04/22 16:36 [facility] [id number]) Hip Goniometric Range of Motion Hip ramses Flexion w/Knee Flexed 95 Straight Leg Raise 55 Extension 0 Abduction 30 Internal Rotation 10 External Rotation 40 Hip ROM Limitations Hip ROM Limitations Soft Tissue Tightness,Bony Restriction,Pain Knee Goniometric Range of Motion Knee ramses Flexion Active (degrees) 120 Extension Active (degrees) 10 Extension Passive (degrees) 5 Knee ROM Limitations Knee ROM Limitations Soft Tissue Tightness,Pain Ankle and Foot Goniometric Range of Motion Ankle and Foot ramses Dorsiflexion with Knee Flexed 5 Dorsiflexion with Knee Extended 0 Plantarflexion 40 Ankle and Foot ROM Limitations ROM Limitations Soft Tissue Tightness PT-OP-M Strength Start: 01/04/22 11:15 Freq: Status: Active Protocol: Document 01/04/22 14:27 [facility] (Rec: 01/04/22 15:23 [facility] [id number]) Hip Strength Hip Manual Muscle Testing Left Flexion (L2) 4 Good Extension (S1) 4- Good- Abduction 4- Good- External Rotation 4- Good- Internal Rotation 4 Good Right Flexion (L2) 4 Good Extension (S1) 4- Good- Abduction 4 Good External Rotation 4- Good- Internal Rotation 4 Good Knee Strength Knee Manual Muscle Testing ramses Flexion (S2) 4 Good Extension (L3) 4 Good Ankle/Foot Strength Ankle and Foot Manual Muscle Testing Left Dorsiflexion (L4) 4- Good- Plantarflexion (S1) 4- Good- Right Dorsiflexion (L4) 4+ Good+ Plantarflexion (S1) 4+ Good+ PT-OP-Q Treatments Start: 01/04/22 11:15 Freq: Status: Active Protocol: Document 01/21/22 11:19 [facility] (Rec: 01/21/22 12:03 [facility] [id number]) Cardio Equipment Recumbent Stepper (Sci-Fit) Duration (Minutes) 7 Resistance 1.5 Seat Position 16 Other cues for LE alignment Gym Equipment Shuttle Recovery Unilateral Squats Resistance 37 Reps/Time 10x ea Bilateral Squats Resistance 75 Reps/Time 15x Shuttle Balance 1 Details chains red Reps/Duration bal and wt shift Therapeutic Exercises Supine Exercises HS stretch Reps/Minutes 2x30 Comments manual while resting on shuttle leg press Sidelying Exercises hip ab Reps/Minutes 10x Comments cues for alignment Sitting Exercises ball squeeze Reps/Minutes 10x hamstring curl Equipment Used L2 TB Reps/Minutes 10x LAQ Sitting Exercise Name HEP Standing Exercises resisted walk Standing Exercise Name side,fwd,bck Resistance yellow Equipment Used hallway bar Reps/Minutes 1 length each shallow squats Reps/Minutes 10x Comments yardstick as cue to prevent knees going over toes HC stretch Equipment Used KAYLA Reps/Minutes 2x30 Self-Care/Home Management Treatment Education Patient Education Home Exercise Program Other Education wear shorts to next PT session for soft tissue work, potential kinesiotape PT-OP-R Modalities Start: 01/04/22 11:15 Freq: Status: Active Protocol: Document 01/21/22 11:19 [facility] (Rec: 01/21/22 12:03 [facility] [id number]) Hot Pack/Cold Pack Treatment Hot Pack Location bilataeral knees Patient Position Hooklying Treatment Duration (minutes) 15 Patient Tolerance Good Comments strap around distal thighs PT-OP-S Aquatic Treatment Start: 01/04/22 11:15 Freq: Status: Active Protocol: Document 01/18/22 14:30 [facility] (Rec: 01/18/22 14:34 [facility] [id number]) Aquatics Treatment Pool Entry/Exit Pool Entry/Exit Method Stairs Assistance Independent Water Walking [place] Water Level Chest Level Level of Assistance Verbal Cues Marching Water Level Chest Level Level of Assistance Verbal Cues Sideways Water Level Chest Level Level of Assistance Verbal Cues Backwards Water Level Chest Level Level of Assistance Verbal Cues Forwards Water Level Chest Level Level of Assistance Verbal Cues Lower Extremity Exercises 4-way hip Body Position Standing Water Level Chest Level Reps/Duration 20x ea knee flex/ext Body Position Standing Water Level Chest Level Reps/Duration 20 squat Body Position Standing Water Level Waist Level Reps/Duration 10x Lower Extremity Stretches HC Details stair Reps/Duration 2x quad Body Position Standing Equipment Small Noodle Reps/Duration 2x30 HS Body Position Standing Water Level Chest Level Equipment Small Noodle Reps/Duration 2x30 [place] Activities [place] Activities Bicycle,Bicycle Backwards, Cross [place],Running Other Activities deep water hang x 1 min SKTC at ladder Equipment large noodle Duration 10 min PT-OP-T Assessment and Plan Start: 01/04/22 11:15 Freq: Status: Active Protocol: Document 01/21/22 11:19 [facility] (Rec: 01/21/22 12:03 [facility] [id number]) Physical Therapy Assessment Goals Three Impairment weakness and decreased flexibility bilateral LE's Impairment limits mobilty Short Term Goal (STG) Patient to be instructed in HEP for purposes of strengthening and flexibility to support activities in therapy STG Duration 02/16/22 Nursing Home Goal (LTG) Patient to be independent and compliant with HEP and aquatic exercise program and demonsrate 5/ muscle strength and LE ROM WNL LTG Duration 04/06/21 Two Impairment antalgic gait Nursing Home Goal (LTG) Improve pain sufficient to allow patient to ambulate without limp LTG Duration 04/06/21 One Impairment Impaired activity tolerance Impairment Lower extremity functional scale (LEFS) score 50% Short Term Goal (STG) Improve LEFS to at least 65% as measure of improved activity tolerance and functional strength STG Duration 02/16/22 Nursing Home Goal (LTG) Improve LEFS to at least 75% as measure of improved activity tolerance and ability to return to prior level of function LTG Duration 04/06/21 Assessment Summary Assessment Able to tolerate increase in weight with shuttle recovery, becoming more aware of LE alignment with all ther ex and when at rest, at home. Physical Therapy Plan Frequency and Duration Frequency of Treatment 2x/Week Duration of treatment (weeks) 12 Plan of Care Start Date 01/04/22 Plan of Care End Date 03/29/22 Therapeutic Interventions Therapeutic Interventions Aquatic Therapy,Gait Training, Home Exercise Program,Manual Therapy,Neuromuscular Re- education,Patient/Caregiver Education,Self-Care/Home Management,Soft Tissue Mobilization,Therapeutic Activities,Therapeutic Exercises Modalities Cold Pack/Ice Massage,Electric Stimulation,Hot Packs Next Visit Focus/Plan Next Note Type Treatment Note Next Visit Plan Continue progression of ther ex for strengthening and flexibility in aquatic PT primarily. Add resistance fins for walking drills and LE ex in aquatic PT. Land PT do STM to IT bands, consider kinesiotape jedial joint line.
--- NOTE | 2022-01-25 16:42 | PT.OTN ---
Current Diagnoses Other chronic pain (01/25/22) Unilateral post-traumatic osteoarthritis, right hip (01/25/22) Pain in right hip (01/25/22) Pain in right knee (01/25/22) Pain in left knee (01/25/22) Difficulty in walking, not elsewhere classified (01/25/22) Other symptoms and signs involving the musculoskeletal system (01/25/22) Physical Therapy Treatment Note PT-OP-A Visit Information Start: 01/04/22 11:15 Freq: Status: Active Protocol: Document 01/25/22 16:39 [facility] (Rec: 01/25/22 16:42 [facility] [id number]) Out-Patient Physical Therapy Visit Information Visit Information Visit Type Aquatic Treatment Note Visit Start Time 11:00 Visit Stop Time 11:45 Total Visit Minutes 45 Visit Number 7 Precautions Precautions cardiac: HTN, s/p aortic valve replacement 2017, arthritis PT-OP-B Current Condition Start: 01/04/22 11:15 Freq: Status: Active Protocol: Document 01/25/22 16:39 [facility]AK (Rec: 01/25/22 16:42 [facility] [id number]) Current Condition History of Current Condition Onset Date 1 1/2 years Current Complaints LE weakness and pain History of Current Condition 1 1/2 years ago fell while stepping down without realizing there was a step and twisted on his knee. Left knee was doing all lifting work after that, has old footbal injury, and it started to hurt. Dr. Cruz had x- rays done, ice, Tylenol, and rest recommended. Patient reports he thinks he was too patient. Spent a lot of time sitting. Feels he lost a lot of leg strength. Used a walker for quite awhile, still uses at time especially at night going to bathroom. Legs fatigue quickly. Going to [place] in May, concerned about mobility to be able to enjoy the trip. States he knows he also needs to lose about 40 lbs Hasn't done the exercises issued from Orthopedist yet. Has done aquatic therapy exercises previously given. Prior Treatments and Tests x-ray: arthritis bilateral knees fall 11 years ago with fractured hip PT-OP-C Subjective Start: 01/04/22 11:15 Freq: Status: Active Protocol: Document 01/25/22 16:39 [facility]AK (Rec: 01/25/22 16:42 [facility] [id number]) OP-PT Subjective Patient Comments Patient Comments My legs always feel better after PT, especially aquatic PT. Hasn't been using heat at home. PT-OP-D Balance Start: 01/04/22 11:15 Freq: Status: Active Protocol: Document 01/04/22 14:27 [facility] (Rec: 01/04/22 16:36 [facility] [id number]) OP-PT Balance Assessment Sitting Balance Static Sitting Balance Ability Normal Dynamic Sitting Balance Ability Normal Standing Balance Static Standing Balance Ability Good Dynamic Standing Balance Ability Good Herrera Fall Scale Copyright Permission PT-OP-E Functional Tests Start: 01/04/22 11:15 Freq: Status: Active Protocol: Document 01/04/22 14:27 [facility] (Rec: 01/04/22 16:36 [facility] [id number]) Functional Tests 6 Minute Walk Test Distance 1128 Device Used none Comments antalgic, mild SOB PT-OP-G Mobility & Gait Start: 01/04/22 11:15 Freq: Status: Active Protocol: Document 01/04/22 14:27 [facility] (Rec: 01/04/22 16:36 [facility] [id number]) OP Mobility Evaluation Transfers Sit to Stand indep, no UE assist OP Gait Assessment Gait Gait Assistance Required: Independent Distance (Feet) 1,127 Able to Maintain Weight Bearing Status Yes During Gait Assistive Devices Assistive Device None Gait Deviations General Gait Pattern Antalgic Factors Limiting Gait Function Factors Limiting Gait Function Decreased Activity Tolerance, Pain Comments Gait Comments no LOB Stair Climbing Evaluation Evaluation Level of Assist On Stairs Standby Assistance Devices Stair Climbing Assistive Devices Left Railing,Right Railing Technique/Endurance Stair Climbing Direction Ascend and Descend Stair Climbing Technique Step to Step PT-OP-J Posture/Palpation/Skin Start: 01/04/22 11:15 Freq: Status: Active Protocol: Document 01/04/22 14:27 [facility] (Rec: 01/04/22 16:36 [facility] [id number]) Palpation Assessment Location medial knee joints Palpation Findings Tenderness PT-OP-K Range of Motion Start: 01/04/22 11:15 Freq: Status: Active Protocol: Document 01/04/22 14:27 [facility] (Rec: 01/04/22 16:36 [facility] [id number]) Hip Goniometric Range of Motion Hip ramses Flexion w/Knee Flexed 95 Straight Leg Raise 55 Extension 0 Abduction 30 Internal Rotation 10 External Rotation 40 Hip ROM Limitations Hip ROM Limitations Soft Tissue Tightness,Bony Restriction,Pain Knee Goniometric Range of Motion Knee ramses Flexion Active (degrees) 120 Extension Active (degrees) 10 Extension Passive (degrees) 5 Knee ROM Limitations Knee ROM Limitations Soft Tissue Tightness,Pain Ankle and Foot Goniometric Range of Motion Ankle and Foot ramses Dorsiflexion with Knee Flexed 5 Dorsiflexion with Knee Extended 0 Plantarflexion 40 Ankle and Foot ROM Limitations ROM Limitations Soft Tissue Tightness PT-OP-M Strength Start: 01/04/22 11:15 Freq: Status: Active Protocol: Document 01/04/22 14:27 [facility] (Rec: 01/04/22 15:23 [facility] [id number]) Hip Strength Hip Manual Muscle Testing Left Flexion (L2) 4 Good Extension (S1) 4- Good- Abduction 4- Good- External Rotation 4- Good- Internal Rotation 4 Good Right Flexion (L2) 4 Good Extension (S1) 4- Good- Abduction 4 Good External Rotation 4- Good- Internal Rotation 4 Good Knee Strength Knee Manual Muscle Testing ramses Flexion (S2) 4 Good Extension (L3) 4 Good Ankle/Foot Strength Ankle and Foot Manual Muscle Testing Left Dorsiflexion (L4) 4- Good- Plantarflexion (S1) 4- Good- Right Dorsiflexion (L4) 4+ Good+ Plantarflexion (S1) 4+ Good+ PT-OP-Q Treatments Start: 01/04/22 11:15 Freq: Status: Active Protocol: Document 01/21/22 11:19 [facility] (Rec: 01/21/22 12:03 [facility] [id number]) Cardio Equipment Recumbent Stepper (Sci-Fit) Duration (Minutes) 7 Resistance 1.5 Seat Position 16 Other cues for LE alignment Gym Equipment Shuttle Recovery Unilateral Squats Resistance 37 Reps/Time 10x ea Bilateral Squats Resistance 75 Reps/Time 15x Shuttle Balance 1 Details chains red Reps/Duration bal and wt shift Therapeutic Exercises Supine Exercises HS stretch Reps/Minutes 2x30 Comments manual while resting on shuttle leg press Sidelying Exercises hip ab Reps/Minutes 10x Comments cues for alignment Sitting Exercises ball squeeze Reps/Minutes 10x hamstring curl Equipment Used L2 TB Reps/Minutes 10x LAQ Sitting Exercise Name HEP Standing Exercises resisted walk Standing Exercise Name side,fwd,bck Resistance yellow Equipment Used hallway bar Reps/Minutes 1 length each shallow squats Reps/Minutes 10x Comments yardstick as cue to prevent knees going over toes HC stretch Equipment Used KAYLA Reps/Minutes 2x30 Self-Care/Home Management Treatment Education Patient Education Home Exercise Program Other Education wear shorts to next PT session for soft tissue work, potential kinesiotape PT-OP-R Modalities Start: 01/04/22 11:15 Freq: Status: Active Protocol: Document 01/21/22 11:19 [facility] (Rec: 01/21/22 12:03 [facility] [id number]) Hot Pack/Cold Pack Treatment Hot Pack Location bilataeral knees Patient Position Hooklying Treatment Duration (minutes) 15 Patient Tolerance Good Comments strap around distal thighs PT-OP-S Aquatic Treatment Start: 01/04/22 11:15 Freq: Status: Active Protocol: Document 01/25/22 16:39 [facility] (Rec: 01/25/22 16:42 [facility] [id number]) Aquatics Treatment Pool Entry/Exit Pool Entry/Exit Method Stairs Assistance Independent Water Walking Lunge Walk Water Level Chest Level Walking Equipment Resistance Fins Level of Assistance Verbal Cues [place] March Water Level Chest Level Walking Equipment Resistance Fins Level of Assistance Verbal Cues Marching Water Level Chest Level Walking Equipment Resistance Fins Level of Assistance Verbal Cues Sideways Water Level Chest Level Walking Equipment Resistance Fins Level of Assistance Verbal Cues Backwards Water Level Chest Level Walking Equipment Resistance Fins Level of Assistance Verbal Cues [place]wards Water Level Chest Level Walking Equipment Resistance Fins Level of Assistance Verbal Cues Lower Extremity Exercises 4-way hip Body Position Standing Water Level Chest Level Equipment Resistance Fins Reps/Duration 20x ea knee flex/ext Body Position Standing Water Level Chest Level Equipment Resistance Fins Reps/Duration 20 Lower Extremity Stretches HC Details stair Reps/Duration 2x quad Body Position Standing Equipment Small Noodle Reps/Duration 2x30 HS Body Position Standing Water Level Chest Level Equipment Small Noodle Reps/Duration 2x30 PT-OP-T Assessment and Plan Start: 01/04/22 11:15 Freq: Status: Active Protocol: Document 01/25/22 16:39 [facility] (Rec: 01/25/22 16:42 [facility] [id number]) Physical Therapy Assessment Impairments Impairments Activity Tolerance,Pain,ROM, Strength Goals Three Impairment weakness and decreased flexibility bilateral LE's Impairment limits mobilty Short Term Goal (STG) Patient to be instructed in HEP for purposes of strengthening and flexibility to support activities in therapy STG Duration 02/16/22 [employer] Goal (LTG) Patient to be independent and compliant with HEP and aquatic exercise program and demonsrate / muscle strength and LE ROM WNL LTG Duration 04/06/21 Two Impairment antalgic gait Nursing Home Goal (LTG) Improve pain sufficient to allow patient to ambulate without limp LTG Duration 04/06/21 One Impairment Impaired activity tolerance Impairment Lower extremity functional scale (LEFS) score 50% Short Term Goal (STG) Improve LEFS to at least 65% as measure of improved activity tolerance and functional strength STG Duration 02/16/22 [employer] Goal (LTG) Improve LEFS to at least 75% as measure of improved activity tolerance and ability to return to prior level of function LTG Duration 04/06/21 Physical Therapy Plan Frequency and Duration Frequency of Treatment 2x/Week Duration of treatment (weeks) 12 Plan of Care Start Date 01/04/22 Plan of Care End Date 03/29/22 Therapeutic Interventions Therapeutic Interventions Aquatic Therapy,Gait Training, Home Exercise Program,Manual Therapy,Neuromuscular Re- education,Patient/Caregiver Education,Self-Care/Home Management,Soft Tissue Mobilization,Therapeutic Activities,Therapeutic Exercises Modalities Cold Pack/Ice Massage,Electric Stimulation,Hot Packs Next Visit Focus/Plan Next Note Type Treatment Note Next Visit Plan Continue progression of ther ex for strengthening and flexibility in aquatic PT primarily. Progress to large resistance fins in aquatic PT as tolerated Land PT do STM to IT bands, consider kinesiotape medial joint line.
--- NOTE | 2022-01-28 12:04 | PT.OTN ---
Current Diagnoses Other chronic pain (01/28/22) Unilateral post-traumatic osteoarthritis, right hip (01/28/22) Pain in right hip (01/28/22) Pain in right knee (01/28/22) Pain in left knee (01/28/22) Difficulty in walking, not elsewhere classified (01/28/22) Other symptoms and signs involving the musculoskeletal system (01/28/22) Physical Therapy Treatment Note PT-OP-A Visit Information Start: 01/04/22 11:15 Freq: Status: Active Protocol: Document 01/28/22 11:18 SAK (Rec: 01/28/22 12:03 [facility] [id number]) Out-Patient Physical Therapy Visit Information Visit Information Visit Type Treatment Note Visit Start Time 11:19 Visit Stop Time 12:10 Total Visit Minutes 51 Visit Number 8 Precautions Precautions cardiac: HTN, s/p aortic valve replacement 2017, arthritis PT-OP-B Current Condition Start: 01/04/22 11:15 Freq: Status: Active Protocol: Document 01/28/22 11:18 SAK (Rec: 01/28/22 12:03 [facility] [id number]) Current Condition History of Current Condition Onset Date 1 1/2 years Current Complaints LE weakness and pain History of Current Condition 1 1/2 years ago fell while stepping down without realizing there was a step and twisted on his knee. Left knee was doing all lifting work after that, has old footbal injury, and it started to hurt. Dr. Cruz had x- rays done, ice, Tylenol, and rest recommended. Patient reports he thinks he was too patient. Spent a lot of time sitting. Feels he lost a lot of leg strength. Used a walker for quite awhile, still uses at time especially at night going to bathroom. Legs fatigue quickly. Going to [place] in May, concerned about mobility to be able to enjoy the trip. States he knows he also needs to lose about 40 lbs Hasn't done the exercises issued from Orthopedist yet. Has done aquatic therapy exercises previously given. Prior Treatments and Tests x-ray: arthritis bilateral knees fall 11 years ago with fractured hip PT-OP-C Subjective Start: 01/04/22 11:15 Freq: Status: Active Protocol: Document 01/28/22 11:18 SAK (Rec: 01/28/22 12:03 [facility] [id number]) OP-PT Subjective Patient Comments Patient Comments stiff, creaky, achy knees today PT-OP-D Balance Start: 01/04/22 11:15 Freq: Status: Active Protocol: Document 01/04/22 14:27 [facility] (Rec: 01/04/22 16:36 [facility] [id number]) OP-PT Balance Assessment Sitting Balance Static Sitting Balance Ability Normal Dynamic Sitting Balance Ability Normal Standing Balance Static Standing Balance Ability Good Dynamic Standing Balance Ability Good Herrera Fall Scale Copyright Permission PT-OP-E Functional Tests Start: 01/04/22 11:15 Freq: Status: Active Protocol: Document 01/04/22 14:27 [facility] (Rec: 01/04/22 16:36 [facility] [id number]) Functional Tests 6 Minute Walk Test Distance 1128 Device Used none Comments antalgic, mild SOB PT-OP-G Mobility & Gait Start: 01/04/22 11:15 Freq: Status: Active Protocol: Document 01/04/22 14:27 [facility] (Rec: 01/04/22 16:36 [facility] [id number]) OP Mobility Evaluation Transfers Sit to Stand indep, no UE assist OP Gait Assessment Gait Gait Assistance Required: Independent Distance (Feet) 1,127 Able to Maintain Weight Bearing Status Yes During Gait Assistive Devices Assistive Device None Gait Deviations General Gait Pattern Antalgic Factors Limiting Gait Function Factors Limiting Gait Function Decreased Activity Tolerance, Pain Comments Gait Comments no LOB Stair Climbing Evaluation Evaluation Level of Assist On Stairs Standby Assistance Devices Stair Climbing Assistive Devices Left Railing,Right Railing Technique/Endurance Stair Climbing Direction Ascend and Descend Stair Climbing Technique Step to Step PT-OP-J Posture/Palpation/Skin Start: 01/04/22 11:15 Freq: Status: Active Protocol: Document 01/04/22 14:27 [facility] (Rec: 01/04/22 16:36 [facility] [id number]) Palpation Assessment Location medial knee joints Palpation Findings Tenderness PT-OP-K Range of Motion Start: 01/04/22 11:15 Freq: Status: Active Protocol: Document 01/04/22 14:27 [facility] (Rec: 01/04/22 16:36 [facility] [id number]) Hip Goniometric Range of Motion Hip ramses Flexion w/Knee Flexed 95 Straight Leg Raise 55 Extension 0 Abduction 30 Internal Rotation 10 External Rotation 40 Hip ROM Limitations Hip ROM Limitations Soft Tissue Tightness,Bony Restriction,Pain Knee Goniometric Range of Motion Knee rmases Flexion Active (degrees) 120 Extension Active (degrees) 10 Extension Passive (degrees) 5 Knee ROM Limitations Knee ROM Limitations Soft Tissue Tightness,Pain Ankle and Foot Goniometric Range of Motion Ankle and Foot ramses Dorsiflexion with Knee Flexed 5 Dorsiflexion with Knee Extended 0 Plantarflexion 40 Ankle and Foot ROM Limitations ROM Limitations Soft Tissue Tightness PT-OP-M Strength Start: 01/04/22 11:15 Freq: Status: Active Protocol: Document 01/04/22 14:27 [facility] (Rec: 01/04/22 15:23 [facility] [id number]) Hip Strength Hip Manual Muscle Testing Left Flexion (L2) 4 Good Extension (S1) 4- Good- Abduction 4- Good- External Rotation 4- Good- Internal Rotation 4 Good Right Flexion (L2) 4 Good Extension (S1) 4- Good- Abduction 4 Good External Rotation 4- Good- Internal Rotation 4 Good Knee Strength Knee Manual Muscle Testing ramses Flexion (S2) 4 Good Extension (L3) 4 Good Ankle/Foot Strength Ankle and Foot Manual Muscle Testing Left Dorsiflexion (L4) 4- Good- Plantarflexion (S1) 4- Good- Right Dorsiflexion (L4) 4+ Good+ Plantarflexion (S1) 4+ Good+ PT-OP-Q Treatments Start: 01/04/22 11:15 Freq: Status: Active Protocol: Document 01/28/22 11:18 [facility] (Rec: 01/28/22 12:03 [facility] [id number]) Cardio Equipment Recumbent Stepper (Sci-Fit) Duration (Minutes) 7 Resistance 1.8-2 Seat Position 14 Other cues for LE alignment Gym Equipment Shuttle Recovery Unilateral Squats Resistance 37 Reps/Time 10x ea Bilateral Squats Resistance 75 Reps/Time 15x Shuttle Balance 1 Details chains red Reps/Duration bal and wt shift Comments fwd/bck, side Therapeutic Exercises Standing Exercises HC/hip flexior stretch Side bilateral Reps/Minutes 30 BOSU lunge Reps/Minutes 10x ea resisted walk Standing Exercise Name side,fwd,bck Resistance red Equipment Used hallway bar Reps/Minutes 2 length each Manual Therapy Treatment Taping ramses knees Body Location medial knees ramses Treatment Focus pain relief Type of Tape kinesiotape Skin Inspection intact Comments 1 I strip each knee 50-75% stretch from tibial tuberosity across medial joint line and up medial thigh PT-OP-R Modalities Start: 01/04/22 11:15 Freq: Status: Active Protocol: Document 01/28/22 11:18 [facility] (Rec: 01/28/22 12:04 [facility] [id number]) Hot Pack/Cold Pack Treatment Hot Pack Location bilataeral knees Patient Position Hooklying Treatment Duration (minutes) 15 Patient Tolerance Good Comments strap around distal thighs PT-OP-S Aquatic Treatment Start: 01/04/22 11:15 Freq: Status: Active Protocol: Document 01/25/22 16:39 [facility] (Rec: 01/25/22 16:42 [facility] [id number]) Aquatics Treatment Pool Entry/Exit Pool Entry/Exit Method Stairs Assistance Independent Water Walking Lunge Walk Water Level Chest Level Walking Equipment Resistance Fins Level of Assistance Verbal Cues [place] March Water Level Chest Level Walking Equipment Resistance Fins Level of Assistance Verbal Cues Marching Water Level Chest Level Walking Equipment Resistance Fins Level of Assistance Verbal Cues Sideways Water Level Chest Level Walking Equipment Resistance Fins Level of Assistance Verbal Cues Backwards Water Level Chest Level Walking Equipment Resistance Fins Level of Assistance Verbal Cues Forwards Water Level Chest Level Walking Equipment Resistance Fins Level of Assistance Verbal Cues Lower Extremity Exercises 4-way hip Body Position Standing Water Level Chest Level Equipment Resistance Fins Reps/Duration 20x ea knee flex/ext Body Position Standing Water Level Chest Level Equipment Resistance Fins Reps/Duration 20 Lower Extremity Stretches HC Details stair Reps/Duration 2x quad Body Position Standing Equipment Small Noodle Reps/Duration 2x30 HS Body Position Standing Water Level Chest Level Equipment Small Noodle Reps/Duration 2x30 PT-OP-T Assessment and Plan Start: 01/04/22 11:15 Freq: Status: Active Protocol: Document 01/28/22 11:18 [facility] (Rec: 01/28/22 12:03 [facility] [id number]) Physical Therapy Assessment Goals Three Impairment weakness and decreased flexibility bilateral LE's Impairment limits mobilty Short Term Goal (STG) Patient to be instructed in HEP for purposes of strengthening and flexibility to support activities in therapy STG Duration 02/16/22 Halfway Goal (LTG) Patient to be independent and compliant with HEP and aquatic exercise program and demonsrate 5/5 muscle strength and LE ROM WNL LTG Duration 04/06/21 Two Impairment antalgic gait [employer] Goal (LTG) Improve pain sufficient to allow patient to ambulate without limp LTG Duration 04/06/21 One Impairment Impaired activity tolerance Impairment Lower extremity functional scale (LEFS) score 50% Short Term Goal (STG) Improve LEFS to at least 65% as measure of improved activity tolerance and functional strength STG Duration 02/16/22 [employer] Goal (LTG) Improve LEFS to at least 75% as measure of improved activity tolerance and ability to return to prior level of function LTG Duration 04/06/21 Assessment Summary Assessment Increased time and resistance on Sci-Fit and sidestepping with band. Added MARI duncan Physical Therapy Plan Frequency and Duration Frequency of Treatment 2x/Week Duration of treatment (weeks) 12 Plan of Care Start Date 01/04/22 Plan of Care End Date 03/29/22 Therapeutic Interventions Therapeutic Interventions Aquatic Therapy,Gait Training, Home Exercise Program,Manual Therapy,Neuromuscular Re- education,Patient/Caregiver Education,Self-Care/Home Management,Soft Tissue Mobilization,Therapeutic Activities,Therapeutic Exercises Modalities Cold Pack/Ice Massage,Electric Stimulation,Hot Packs Next Visit Focus/Plan Next Note Type Treatment Note Next Visit Plan progress to resistance fins with aquatic therapy. Asess response to kinesiotape. STM to IT bands.
--- NOTE | 2022-02-01 13:57 | PT.OTN ---
Current Diagnoses Other chronic pain (02/01/22) Unilateral post-traumatic osteoarthritis, right hip (02/01/22) Pain in right hip (02/01/22) Pain in right knee (02/01/22) Pain in left knee (02/01/22) Difficulty in walking, not elsewhere classified (02/01/22) Other symptoms and signs involving the musculoskeletal system (02/01/22) Physical Therapy Treatment Note PT-OP-A Visit Information Start: 01/04/22 11:15 Freq: Status: Active Protocol: Document 02/01/22 13:46 SAK (Rec: 02/01/22 13:57 [facility] [id number]) Out-Patient Physical Therapy Visit Information Visit Information Visit Type Treatment Note Visit Start Time 11:00 Visit Stop Time 11:45 Total Visit Minutes 45 Visit Number 9 Precautions Precautions cardiac: HTN, s/p aortic valve replacement 2017, arthritis PT-OP-B Current Condition Start: 01/04/22 11:15 Freq: Status: Active Protocol: Document 02/01/22 13:46 SAK (Rec: 02/01/22 13:57 [facility] [id number]) Current Condition History of Current Condition Onset Date 1 1/2 years Current Complaints LE weakness and pain History of Current Condition 1 1/2 years ago fell while stepping down without realizing there was a step and twisted on his knee. Left knee was doing all lifting work after that, has old footbal injury, and it started to hurt. Dr. Cruz had x- rays done, ice, Tylenol, and rest recommended. Patient reports he thinks he was too patient. Spent a lot of time sitting. Feels he lost a lot of leg strength. Used a walker for quite awhile, still uses at time especially at night going to bathroom. Legs fatigue quickly. Going to [place] in May, concerned about mobility to be able to enjoy the trip. States he knows he also needs to lose about 40 lbs Hasn't done the exercises issued from Orthopedist yet. Has done aquatic therapy exercises previously given. Prior Treatments and Tests x-ray: arthritis bilateral knees fall 11 years ago with fractured hip PT-OP-C Subjective Start: 01/04/22 11:15 Freq: Status: Active Protocol: Document 02/01/22 13:46 SAK (Rec: 02/01/22 13:57 [facility] [id number]) OP-PT Subjective Patient Comments Patient Comments No new c/o. Liked kinesiotape PT-OP-D Balance Start: 01/04/22 11:15 Freq: Status: Active Protocol: Document 01/04/22 14:27 [facility] (Rec: 01/04/22 16:36 [facility] [id number]) OP-PT Balance Assessment Sitting Balance Static Sitting Balance Ability Normal Dynamic Sitting Balance Ability Normal Standing Balance Static Standing Balance Ability Good Dynamic Standing Balance Ability Good Herrera Fall Scale Copyright Permission PT-OP-E Functional Tests Start: 01/04/22 11:15 Freq: Status: Active Protocol: Document 01/04/22 14:27 [facility] (Rec: 01/04/22 16:36 [facility] [id number]) Functional Tests 6 Minute Walk Test Distance 1128 Device Used none Comments antalgic, mild SOB PT-OP-G Mobility & Gait Start: 01/04/22 11:15 Freq: Status: Active Protocol: Document 01/04/22 14:27 [facility] (Rec: 01/04/22 16:36 [facility] [id number]) OP Mobility Evaluation Transfers Sit to Stand indep, no UE assist OP Gait Assessment Gait Gait Assistance Required: Independent Distance (Feet) 1,127 Able to Maintain Weight Bearing Status Yes During Gait Assistive Devices Assistive Device None Gait Deviations General Gait Pattern Antalgic Factors Limiting Gait Function Factors Limiting Gait Function Decreased Activity Tolerance, Pain Comments Gait Comments no LOB Stair Climbing Evaluation Evaluation Level of Assist On Stairs Standby Assistance Devices Stair Climbing Assistive Devices Left Railing,Right Railing Technique/Endurance Stair Climbing Direction Ascend and Descend Stair Climbing Technique Step to Step PT-OP-J Posture/Palpation/Skin Start: 01/04/22 11:15 Freq: Status: Active Protocol: Document 01/04/22 14:27 [facility] (Rec: 01/04/22 16:36 [facility] [id number]) Palpation Assessment Location medial knee joints Palpation Findings Tenderness PT-OP-K Range of Motion Start: 01/04/22 11:15 Freq: Status: Active Protocol: Document 01/04/22 14:27 [facility] (Rec: 01/04/22 16:36 [facility] [id number]) Hip Goniometric Range of Motion Hip ramses Flexion w/Knee Flexed 95 Straight Leg Raise 55 Extension 0 Abduction 30 Internal Rotation 10 External Rotation 40 Hip ROM Limitations Hip ROM Limitations Soft Tissue Tightness,Bony Restriction,Pain Knee Goniometric Range of Motion Knee ramses Flexion Active (degrees) 120 Extension Active (degrees) 10 Extension Passive (degrees) 5 Knee ROM Limitations Knee ROM Limitations Soft Tissue Tightness,Pain Ankle and Foot Goniometric Range of Motion Ankle and Foot ramses Dorsiflexion with Knee Flexed 5 Dorsiflexion with Knee Extended 0 Plantarflexion 40 Ankle and Foot ROM Limitations ROM Limitations Soft Tissue Tightness PT-OP-M Strength Start: 01/04/22 11:15 Freq: Status: Active Protocol: Document 01/04/22 14:27 [facility] (Rec: 01/04/22 15:23 [facility] [id number]) Hip Strength Hip Manual Muscle Testing Left Flexion (L2) 4 Good Extension (S1) 4- Good- Abduction 4- Good- External Rotation 4- Good- Internal Rotation 4 Good Right Flexion (L2) 4 Good Extension (S1) 4- Good- Abduction 4 Good External Rotation 4- Good- Internal Rotation 4 Good Knee Strength Knee Manual Muscle Testing ramses Flexion (S2) 4 Good Extension (L3) 4 Good Ankle/Foot Strength Ankle and Foot Manual Muscle Testing Left Dorsiflexion (L4) 4- Good- Plantarflexion (S1) 4- Good- Right Dorsiflexion (L4) 4+ Good+ Plantarflexion (S1) 4+ Good+ PT-OP-Q Treatments Start: 01/04/22 11:15 Freq: Status: Active Protocol: Document 01/28/22 11:18 [facility] (Rec: 01/28/22 12:03 [facility] [id number]) Cardio Equipment Recumbent Stepper (Sci-Fit) Duration (Minutes) 7 Resistance 1.8-2 Seat Position 14 Other cues for LE alignment Gym Equipment Shuttle Recovery Unilateral Squats Resistance 37 Reps/Time 10x ea Bilateral Squats Resistance 75 Reps/Time 15x Shuttle Balance 1 Details chains red Reps/Duration bal and wt shift Comments fwd/bck, side Therapeutic Exercises Standing Exercises HC/hip flexior stretch Side bilateral Reps/Minutes 30 BOSU lunge Reps/Minutes 10x ea resisted walk Standing Exercise Name side,fwd,bck Resistance red Equipment Used hallway bar Reps/Minutes 2 length each Manual Therapy Treatment Taping ramses knees Body Location medial knees ramses Treatment Focus pain relief Type of Tape kinesiotape Skin Inspection intact Comments 1 I strip each knee 50-75% stretch from tibial tuberosity across medial joint line and up medial thigh PT-OP-R Modalities Start: 01/04/22 11:15 Freq: Status: Active Protocol: Document 01/28/22 11:18 [facility] (Rec: 01/28/22 12:04 [facility] [id number]) Hot Pack/Cold Pack Treatment Hot Pack Location bilataeral knees Patient Position Hooklying Treatment Duration (minutes) 15 Patient Tolerance Good Comments strap around distal thighs PT-OP-S Aquatic Treatment Start: 01/04/22 11:15 Freq: Status: Active Protocol: Document 02/01/22 13:46 [facility] (Rec: 02/01/22 13:57 [facility] [id number]) Aquatics Treatment Pool Entry/Exit Pool Entry/Exit Method Stairs Assistance Independent Water Walking Lunge Walk Water Level Chest Level Walking Equipment Resistance Fins Level of Assistance Verbal Cues Comments lg fins [place] March Water Level Chest Level Walking Equipment Resistance Fins Level of Assistance Verbal Cues Comments lg fins Marching Water Level Chest Level Walking Equipment Resistance Fins Level of Assistance Verbal Cues Comments lg fins Sideways Water Level Chest Level Walking Equipment Resistance Fins Level of Assistance Verbal Cues Comments lg fins Backwards Water Level Chest Level Walking Equipment Resistance Fins Level of Assistance Verbal Cues Comments lg fins [place]wards Water Level Chest Level Walking Equipment Resistance Fins Level of Assistance Verbal Cues Comments lg fins Lower Extremity Exercises 4-way hip Body Position Standing Water Level Chest Level Equipment Resistance Fins (lg) Reps/Duration 20x ea knee flex/ext Body Position Standing Water Level Chest Level Equipment Resistance Fins (lg) Reps/Duration 20 squat Body Position Standing Water Level Waist Level Reps/Duration 10x2 Lower Extremity Stretches IT band Body Position Standing Water Level Chest Level Equipment Small Noodle HC Details stair Reps/Duration 2x [place] Activities [place] Activities Bicycle,Bicycle Backwards, [place],Running,Hip Abduction/Adduction Other Activities deep water hang x 1 min SKTC at ladder Equipment large noodle Duration 10 min PT-OP-T Assessment and Plan Start: 01/04/22 11:15 Freq: Status: Active Protocol: Document 02/01/22 13:46 [facility] (Rec: 02/01/22 13:57 [facility] [id number]) Physical Therapy Assessment Goals Three Impairment weakness and decreased flexibility bilateral LE's Impairment limits mobilty Short Term Goal (STG) Patient to be instructed in HEP for purposes of strengthening and flexibility to support activities in therapy STG Duration 02/16/22 Care Home Goal (LTG) Patient to be independent and compliant with HEP and aquatic exercise program and demonsrate / muscle strength and LE ROM WNL LTG Duration 04/06/21 Two Impairment antalgic gait Bank Guard Goal (LTG) Improve pain sufficient to allow patient to ambulate without limp LTG Duration 04/06/21 One Impairment Impaired activity tolerance Impairment Lower extremity functional scale (LEFS) score 50% Short Term Goal (STG) Improve LEFS to at least 65% as measure of improved activity tolerance and functional strength STG Duration 02/16/22 Bank Guard Goal (LTG) Improve LEFS to at least 75% as measure of improved activity tolerance and ability to return to prior level of function LTG Duration 04/06/21 Progress Towards Goals Progress Towards Goals Progressing Toward Goals Assessment Summary Assessment Good tolerance for advancement to large resistance fins with all LE aquatic exercises, patient expressed preference for aquatic PT, will let PT know if wants to continue with PT. He continues to progress with ther ex and demonstrate improved functional strength and gait. Feel he would benefit from manual AquatStretch techniques as well. Physical Therapy Plan Frequency and Duration Frequency of Treatment 2x/Week Duration of treatment (weeks) 12 Plan of Care Start Date 01/04/22 Plan of Care End Date 03/29/22 Therapeutic Interventions Therapeutic Interventions Aquatic Therapy,Gait Training, Home Exercise Program,Manual Therapy,Neuromuscular Re- education,Patient/Caregiver Education,Self-Care/Home Management,Soft Tissue Mobilization,Therapeutic Activities,Therapeutic Exercises Modalities Cold Pack/Ice Massage,Electric Stimulation,Hot Packs Next Visit Focus/Plan Next Note Type Progress Note Next Visit Plan Continue PT to decrease pain, improve strength, flexibility, and gait. STM to IT bands. Instrsuct in self-kinesiotape . Discuss POC, including patient preference for aquatic PT, consider further visits as continues to progress. Aquastretch especially to ITband.
--- NOTE | 2022-02-04 14:05 | PT.OTN ---
Current Diagnoses Other chronic pain (02/04/22) Unilateral post-traumatic osteoarthritis, right hip (02/04/22) Pain in right hip (02/04/22) Pain in right knee (02/04/22) Pain in left knee (02/04/22) Difficulty in walking, not elsewhere classified (02/04/22) Other symptoms and signs involving the musculoskeletal system (02/04/22) Physical Therapy Treatment Note PT-OP-A Visit Information Start: 01/04/22 11:15 Freq: Status: Active Protocol: Document 02/04/22 11:12 [facility] (Rec: 02/04/22 11:59 [facility] [id number]) Out-Patient Physical Therapy Visit Information Visit Information Visit Type Progress Note Visit Start Time 11:15 Visit Stop Time 11:45 Total Visit Minutes 45 Visit Number 10 Precautions Precautions cardiac: HTN, s/p aortic valve replacement 2017, arthritis PT-OP-B Current Condition Start: 01/04/22 11:15 Freq: Status: Active Protocol: Document 02/04/22 11:12 [facility] (Rec: 02/04/22 11:59 [facility] [id number]) Current Condition History of Current Condition Onset Date 1 1/2 years Current Complaints LE weakness and pain History of Current Condition 1 1/2 years ago fell while stepping down without realizing there was a step and twisted on his knee. Left knee was doing all lifting work after that, has old footbal injury, and it started to hurt. Dr. Cruz had x- rays done, ice, Tylenol, and rest recommended. Patient reports he thinks he was too patient. Spent a lot of time sitting. Feels he lost a lot of leg strength. Used a walker for quite awhile, still uses at time especially at night going to bathroom. Legs fatigue quickly. Going to [place] in May, concerned about mobility to be able to enjoy the trip. States he knows he also needs to lose about 40 lbs Hasn't done the exercises issued from Orthopedist yet. Has done aquatic therapy exercises previously given. Prior Treatments and Tests x-ray: arthritis bilateral knees fall 11 years ago with fractured hip PT-OP-C Subjective Start: 01/04/22 11:15 Freq: Status: Active Protocol: Document 02/04/22 11:12 [facility] (Rec: 02/04/22 11:59 [facility] [id number]) OP-PT Subjective Patient Comments Patient Comments you're really helping me, I see improvement, walking more normally. PT-OP-D Balance Start: 01/04/22 11:15 Freq: Status: Active Protocol: Document 01/04/22 14:27 [facility] (Rec: 01/04/22 16:36 [facility] [id number]) OP-PT Balance Assessment Sitting Balance Static Sitting Balance Ability Normal Dynamic Sitting Balance Ability Normal Standing Balance Static Standing Balance Ability Good Dynamic Standing Balance Ability Good Herrera Fall Scale Copyright Permission PT-OP-E Functional Tests Start: 01/04/22 11:15 Freq: Status: Active Protocol: Document 01/04/22 14:27 [facility] (Rec: 01/04/22 16:36 [facility] [id number]) Functional Tests 6 Minute Walk Test Distance 1128 Device Used none Comments antalgic, mild SOB PT-OP-G Mobility & Gait Start: 01/04/22 11:15 Freq: Status: Active Protocol: Document 01/04/22 14:27 [facility] (Rec: 01/04/22 16:36 [facility] [id number]) OP Mobility Evaluation Transfers Sit to Stand indep, no UE assist OP Gait Assessment Gait Gait Assistance Required: Independent Distance (Feet) 1,127 Able to Maintain Weight Bearing Status Yes During Gait Assistive Devices Assistive Device None Gait Deviations General Gait Pattern Antalgic Factors Limiting Gait Function Factors Limiting Gait Function Decreased Activity Tolerance, Pain Comments Gait Comments no LOB Stair Climbing Evaluation Evaluation Level of Assist On Stairs Standby Assistance Devices Stair Climbing Assistive Devices Left Railing,Right Railing Technique/Endurance Stair Climbing Direction Ascend and Descend Stair Climbing Technique Step to Step PT-OP-J Posture/Palpation/Skin Start: 01/04/22 11:15 Freq: Status: Active Protocol: Document 01/04/22 14:27 [facility] (Rec: 01/04/22 16:36 [facility] [id number]) Palpation Assessment Location medial knee joints Palpation Findings Tenderness PT-OP-K Range of Motion Start: 01/04/22 11:15 Freq: Status: Active Protocol: Document 01/04/22 14:27 [facility] (Rec: 01/04/22 16:36 [facility] [id number]) Hip Goniometric Range of Motion Hip ramses Flexion w/Knee Flexed 95 Straight Leg Raise 55 Extension 0 Abduction 30 Internal Rotation 10 External Rotation 40 Hip ROM Limitations Hip ROM Limitations Soft Tissue Tightness,Bony Restriction,Pain Knee Goniometric Range of Motion Knee ramses Flexion Active (degrees) 120 Extension Active (degrees) 10 Extension Passive (degrees) 5 Knee ROM Limitations Knee ROM Limitations Soft Tissue Tightness,Pain Ankle and Foot Goniometric Range of Motion Ankle and Foot ramses Dorsiflexion with Knee Flexed 5 Dorsiflexion with Knee Extended 0 Plantarflexion 40 Ankle and Foot ROM Limitations ROM Limitations Soft Tissue Tightness PT-OP-M Strength Start: 01/04/22 11:15 Freq: Status: Active Protocol: Document 01/04/22 14:27 [facility] (Rec: 01/04/22 15:23 [facility] [id number]) Hip Strength Hip Manual Muscle Testing Left Flexion (L2) 4 Good Extension (S1) 4- Good- Abduction 4- Good- External Rotation 4- Good- Internal Rotation 4 Good Right Flexion (L2) 4 Good Extension (S1) 4- Good- Abduction 4 Good External Rotation 4- Good- Internal Rotation 4 Good Knee Strength Knee Manual Muscle Testing ramses Flexion (S2) 4 Good Extension (L3) 4 Good Ankle/Foot Strength Ankle and Foot Manual Muscle Testing Left Dorsiflexion (L4) 4- Good- Plantarflexion (S1) 4- Good- Right Dorsiflexion (L4) 4+ Good+ Plantarflexion (S1) 4+ Good+ PT-OP-Q Treatments Start: 01/04/22 11:15 Freq: Status: Active Protocol: Document 02/04/22 11:12 [facility] (Rec: 02/04/22 11:59 [facility] [id number]) Cardio Equipment Recumbent Stepper (Sci-Fit) Duration (Minutes) 8 Resistance 1.8-2 Seat Position 14 Other cues for LE alignment Gym Equipment Shuttle Recovery Unilateral Squats Resistance 37 Reps/Time 10x2 ea Bilateral Squats Resistance 75 Reps/Time 20x Shuttle Balance 1 Details chains red Reps/Duration bal and wt shift Comments fwd/bck, side, staggered Therapeutic Exercises Sitting Exercises hamstring curl Equipment Used L2 TB Reps/Minutes 10x Standing Exercises HC/hip flexior stretch Side bilateral Reps/Minutes 30 BOSU lunge Reps/Minutes 10x ea resisted walk Standing Exercise Name side,fwd,bck Resistance red Equipment Used hallway bar Reps/Minutes 2 length each HC stretch Equipment Used KAYLA Reps/Minutes 2x30 Manual Therapy Treatment Taping ramses knees Comments declined PT-OP-R Modalities Start: 01/04/22 11:15 Freq: Status: Active Protocol: Document 01/28/22 11:18 [facility] (Rec: 01/28/22 12:04 [facility] [id number]) Hot Pack/Cold Pack Treatment Hot Pack Location bilataeral knees Patient Position Hooklying Treatment Duration (minutes) 15 Patient Tolerance Good Comments strap around distal thighs PT-OP-S Aquatic Treatment Start: 01/04/22 11:15 Freq: Status: Active Protocol: Document 02/01/22 13:46 [facility] (Rec: 02/01/22 13:57 [facility] [id number]) Aquatics Treatment Pool Entry/Exit Pool Entry/Exit Method Stairs Assistance Independent Water Walking Lunge Walk Water Level Chest Level Walking Equipment Resistance Fins Level of Assistance Verbal Cues Comments lg fins [place] March Water Level Chest Level Walking Equipment Resistance Fins Level of Assistance Verbal Cues Comments lg fins [place] Water Level Chest Level Walking Equipment Resistance Fins Level of Assistance Verbal Cues Comments lg fins Sideways Water Level Chest Level Walking Equipment Resistance Fins Level of Assistance Verbal Cues Comments lg fins Backwards Water Level Chest Level Walking Equipment Resistance Fins Level of Assistance Verbal Cues Comments lg fins [place] Water Level Chest Level Walking Equipment Resistance Fins Level of Assistance Verbal Cues Comments lg fins Lower Extremity Exercises 4-way hip Body Position Standing Water Level Chest Level Equipment Resistance Fins (lg) Reps/Duration 20x ea knee flex/ext Body Position Standing Water Level Chest Level Equipment Resistance Fins (lg) Reps/Duration 20 squat Body Position Standing Water Level Waist Level Reps/Duration 10x2 Lower Extremity Stretches IT band Body Position Standing Water Level Chest Level Equipment Small Noodle HC Details stair Reps/Duration 2x [place] Activities [place] Activities Bicycle,Bicycle Backwards, Cross Country,Running,Hip Abduction/Adduction Other Activities deep water hang x 1 min SKTC at ladder Equipment large noodle Duration 10 min PT-OP-T Assessment and Plan Start: 01/04/22 11:15 Freq: Status: Active Protocol: Document 02/04/22 11:12 [facility] (Rec: 02/04/22 11:59 [facility] [id number]) Physical Therapy Assessment Goals Three Impairment weakness and decreased flexibility bilateral LE's Impairment limits mobilty Short Term Goal (STG) Patient to be instructed in HEP for purposes of strengthening and flexibility to support activities in therapy 02/04/22: goal met STG Duration goal met Water Quality Analyst Goal (LTG) Patient to be independent and compliant with HEP and aquatic exercise program and demonsrate / muscle strength and LE ROM WNL LTG Duration 04/06/21 Two Impairment antalgic gait Water Quality Analyst Goal (LTG) Improve pain sufficient to allow patient to ambulate without limp 02/04/22: noting less limp, less sc/o pain LTG Duration 04/06/21 One Impairment Impaired activity tolerance Impairment Lower extremity functional scale (LEFS) score 50% Short Term Goal (STG) Improve LEFS to at least 65% as measure of improved activity tolerance and functional strength 02/04/22: improved STG Duration 02/16/22 Water Quality Analyst Goal (LTG) Improve LEFS to at least 75% as measure of improved activity tolerance and ability to return to prior level of function LTG Duration 04/06/21 Progress Towards Goals Progress Towards Goals Progressing Toward Goals Assessment Summary Assessment Good goal progress, patient comopliant with HEP. Improved gait speed and stability Physical Therapy Plan Frequency and Duration Frequency of Treatment 2x/Week Duration of treatment (weeks) 12 Plan of Care Start Date 01/04/22 Plan of Care End Date 03/29/22 Therapeutic Interventions Therapeutic Interventions Aquatic Therapy,Gait Training, Home Exercise Program,Manual Therapy,Neuromuscular Re- education,Patient/Caregiver Education,Self-Care/Home Management,Soft Tissue Mobilization,Therapeutic Activities,Therapeutic Exercises Modalities Cold Pack/Ice Massage,Electric Stimulation,Hot Packs Next Visit Focus/Plan Next Note Type Treatment Note Next Visit Plan Continue PT land and aquatic - based with emphasis on aquatic per patient request for best benefit. Patient to continue with HEP, with continued progression.
--- NOTE | 2022-02-09 14:14 | PT.OTN ---
Current Diagnoses Other chronic pain (02/09/22) Unilateral post-traumatic osteoarthritis, right hip (02/09/22) Pain in right hip (02/09/22) Pain in right knee (02/09/22) Pain in left knee (02/09/22) Difficulty in walking, not elsewhere classified (02/09/22) Other symptoms and signs involving the musculoskeletal system (02/09/22) Physical Therapy Treatment Note PT-OP-A Visit Information Start: 01/04/22 11:15 Freq: Status: Active Protocol: Document 02/09/22 12:58 [facility] (Rec: 02/09/22 14:13 [facility] [id number]) Out-Patient Physical Therapy Visit Information Visit Information Visit Type Treatment Note Visit Start Time 13:00 Visit Stop Time 14:00 Total Visit Minutes 60 Visit Number 11 Precautions Precautions cardiac: HTN, s/p aortic valve replacement 2017, arthritis PT-OP-B Current Condition Start: 01/04/22 11:15 Freq: Status: Active Protocol: Document 02/09/22 12:58 [facility] (Rec: 02/09/22 14:13 [facility] [id number]) Current Condition History of Current Condition Onset Date 1 1/2 years Current Complaints LE weakness and pain History of Current Condition 1 1/2 years ago fell while stepping down without realizing there was a step and twisted on his knee. Left knee was doing all lifting work after that, has old footbal injury, and it started to hurt. Dr. Cruz had x- rays done, ice, Tylenol, and rest recommended. Patient reports he thinks he was too patient. Spent a lot of time sitting. Feels he lost a lot of leg strength. Used a walker for quite awhile, still uses at time especially at night going to bathroom. Legs fatigue quickly. Going to [place] in May, concerned about mobility to be able to enjoy the trip. States he knows he also needs to lose about 40 lbs Hasn't done the exercises issued from Orthopedist yet. Has done aquatic therapy exercises previously given. Prior Treatments and Tests x-ray: arthritis bilateral knees fall 11 years ago with fractured hip PT-OP-C Subjective Start: 01/04/22 11:15 Freq: Status: Active Protocol: Document 02/09/22 12:58 [facility] (Rec: 02/09/22 14:13 [facility] [id number]) OP-PT Subjective Patient Comments Patient Comments Trying not to sift into the mental set of no pain no gain . PT-OP-D Balance Start: 01/04/22 11:15 Freq: Status: Active Protocol: Document 01/04/22 14:27 [facility] (Rec: 01/04/22 16:36 [facility] [id number]) OP-PT Balance Assessment Sitting Balance Static Sitting Balance Ability Normal Dynamic Sitting Balance Ability Normal Standing Balance Static Standing Balance Ability Good Dynamic Standing Balance Ability Good Herrera Fall Scale Copyright Permission PT-OP-E Functional Tests Start: 01/04/22 11:15 Freq: Status: Active Protocol: Document 01/04/22 14:27 [facility] (Rec: 01/04/22 16:36 [facility] [id number]) Functional Tests 6 Minute Walk Test Distance 1128 Device Used none Comments antalgic, mild SOB PT-OP-G Mobility & Gait Start: 01/04/22 11:15 Freq: Status: Active Protocol: Document 01/04/22 14:27 [facility] (Rec: 01/04/22 16:36 [facility] [id number]) OP Mobility Evaluation Transfers Sit to Stand indep, no UE assist OP Gait Assessment Gait Gait Assistance Required: Independent Distance (Feet) 1,127 Able to Maintain Weight Bearing Status Yes During Gait Assistive Devices Assistive Device None Gait Deviations General Gait Pattern Antalgic Factors Limiting Gait Function Factors Limiting Gait Function Decreased Activity Tolerance, Pain Comments Gait Comments no LOB Stair Climbing Evaluation Evaluation Level of Assist On Stairs Standby Assistance Devices Stair Climbing Assistive Devices Left Railing,Right Railing Technique/Endurance Stair Climbing Direction Ascend and Descend Stair Climbing Technique Step to Step PT-OP-J Posture/Palpation/Skin Start: 01/04/22 11:15 Freq: Status: Active Protocol: Document 01/04/22 14:27 [facility] (Rec: 01/04/22 16:36 [facility] [id number]) Palpation Assessment Location medial knee joints Palpation Findings Tenderness PT-OP-K Range of Motion Start: 01/04/22 11:15 Freq: Status: Active Protocol: Document 01/04/22 14:27 [facility] (Rec: 01/04/22 16:36 [facility] [id number]) Hip Goniometric Range of Motion Hip ramses Flexion w/Knee Flexed 95 Straight Leg Raise 55 Extension 0 Abduction 30 Internal Rotation 10 External Rotation 40 Hip ROM Limitations Hip ROM Limitations Soft Tissue Tightness,Bony Restriction,Pain Knee Goniometric Range of Motion Knee ramses Flexion Active (degrees) 120 Extension Active (degrees) 10 Extension Passive (degrees) 5 Knee ROM Limitations Knee ROM Limitations Soft Tissue Tightness,Pain Ankle and Foot Goniometric Range of Motion Ankle and Foot ramses Dorsiflexion with Knee Flexed 5 Dorsiflexion with Knee Extended 0 Plantarflexion 40 Ankle and Foot ROM Limitations ROM Limitations Soft Tissue Tightness PT-OP-M Strength Start: 01/04/22 11:15 Freq: Status: Active Protocol: Document 01/04/22 14:27 [facility] (Rec: 01/04/22 15:23 [facility] [id number]) Hip Strength Hip Manual Muscle Testing Left Flexion (L2) 4 Good Extension (S1) 4- Good- Abduction 4- Good- External Rotation 4- Good- Internal Rotation 4 Good Right Flexion (L2) 4 Good Extension (S1) 4- Good- Abduction 4 Good External Rotation 4- Good- Internal Rotation 4 Good Knee Strength Knee Manual Muscle Testing ramses Flexion (S2) 4 Good Extension (L3) 4 Good Ankle/Foot Strength Ankle and Foot Manual Muscle Testing Left Dorsiflexion (L4) 4- Good- Plantarflexion (S1) 4- Good- Right Dorsiflexion (L4) 4+ Good+ Plantarflexion (S1) 4+ Good+ PT-OP-Q Treatments Start: 01/04/22 11:15 Freq: Status: Active Protocol: Document 02/09/22 12:58 [facility] (Rec: 02/09/22 14:13 [facility] [id number]) Cardio Equipment Recumbent Stepper (Sci-Fit) Duration (Minutes) 8 Resistance 1.8-2 Seat Position 14 Other cues for LE alignment Gym Equipment Cable Column (Body Solid) hamstring curl Resistance 50 Reps/Time 10x2 Shuttle Recovery Unilateral Squats Resistance 50 Reps/Time 10x2 ea Bilateral Squats Details green ball between knees Resistance 87 Reps/Time 20x Sport Cord green cord Exercise Details forward, sideways, backward Therapeutic Exercises Sitting Exercises hamstring curl Equipment Used L2 TB Reps/Minutes 10x Standing Exercises SLS Equipment Used mirror Reps/Minutes 5x ea Comments cues for engaging core and hip musculature HC/hip flexior stretch Side bilateral Reps/Minutes 30 resisted walk Standing Exercise Name side,fwd,bck Resistance red Equipment Used bar in gym Reps/Minutes 2 lengths each quad stretch Equipment Used chair Reps/Minutes 2x HC stretch Equipment Used KAYLA Reps/Minutes 2x30 Gait Training Gait Activity level Device Used no device, mirror for visual feed back Level of Assistance verbal cues for gluteal engagement Surface firm level Distance/Duration 10 ft x 2 Treatment Focus gluteal engagement, upright posture, dec lateral sway stairs Device Used ramses rail Level of Assistance verbal cues Surface 4 stairs Distance/Duration 5 stairs x 4 Treatment Focus gluteal activation Self-Care/Home Management Treatment Education Other Education gluteal activation with gait level and stairs PT-OP-R Modalities Start: 01/04/22 11:15 Freq: Status: Active Protocol: Document 02/09/22 12:58 [facility] (Rec: 02/09/22 14:14 [facility] [id number]) Hot Pack/Cold Pack Treatment Hot Pack Location bilataeral knees Patient Position Hooklying Treatment Duration (minutes) 15 Patient Tolerance Good Comments strap around distal thighs PT-OP-S Aquatic Treatment Start: 01/04/22 11:15 Freq: Status: Active Protocol: Document 02/01/22 13:46 [facility] (Rec: 02/01/22 13:57 [facility] [id number]) Aquatics Treatment Pool Entry/Exit Pool Entry/Exit Method Stairs Assistance Independent Water Walking Lunge Walk Water Level Chest Level Walking Equipment Resistance Fins Level of Assistance Verbal Cues Comments lg fins [place] March Water Level Chest Level Walking Equipment Resistance Fins Level of Assistance Verbal Cues Comments lg fins [place] Water Level Chest Level Walking Equipment Resistance Fins Level of Assistance Verbal Cues Comments lg fins Sideways Water Level Chest Level Walking Equipment Resistance Fins Level of Assistance Verbal Cues Comments lg fins Backwards Water Level Chest Level Walking Equipment Resistance Fins Level of Assistance Verbal Cues Comments lg fins [place] Water Level Chest Level Walking Equipment Resistance Fins Level of Assistance Verbal Cues Comments lg fins Lower Extremity Exercises 4-way hip Body Position Standing Water Level Chest Level Equipment Resistance Fins (lg) Reps/Duration 20x ea knee flex/ext Body Position Standing Water Level Chest Level Equipment Resistance Fins (lg) Reps/Duration 20 squat Body Position Standing Water Level Waist Level Reps/Duration 10x2 Lower Extremity Stretches IT band Body Position Standing Water Level Chest Level Equipment Small Noodle HC Details stair Reps/Duration 2x [place] Activities [place] Activities Bicycle,Bicycle Backwards, Cross Country,Running,Hip Abduction/Adduction Other Activities deep water hang x 1 min SKTC at ladder Equipment large noodle Duration 10 min PT-OP-T Assessment and Plan Start: 01/04/22 11:15 Freq: Status: Active Protocol: Document 02/09/22 12:58 [facility] (Rec: 02/09/22 14:13 [facility] [id number]) Physical Therapy Assessment Goals Three Impairment weakness and decreased flexibility bilateral LE's Impairment limits mobilty Short Term Goal (STG) Patient to be instructed in HEP for purposes of strengthening and flexibility to support activities in therapy 02/04/22: goal met STG Duration goal met Mcc Goal (LTG) Patient to be independent and compliant with HEP and aquatic exercise program and demonsrate 5/5 muscle strength and LE ROM WNL LTG Duration 04/06/21 Two Impairment antalgic gait Mcc Goal (LTG) Improve pain sufficient to allow patient to ambulate without limp 02/04/22: noting less limp, less sc/o pain LTG Duration 04/06/21 One Impairment Impaired activity tolerance Impairment Lower extremity functional scale (LEFS) score 50% Short Term Goal (STG) Improve LEFS to at least 65% as measure of improved activity tolerance and functional strength 02/04/22: improved STG Duration 02/16/22 Mcc Goal (LTG) Improve LEFS to at least 75% as measure of improved activity tolerance and ability to return to prior level of function LTG Duration 04/06/21 Progress Towards Goals Progress Towards Goals Progressing Toward Goals Assessment Summary Assessment Progressing with balance, functional strength, gait, and reporting decreased pain. Physical Therapy Plan Frequency and Duration Frequency of Treatment 2x/Week Duration of treatment (weeks) 12 Plan of Care Start Date 01/04/22 Plan of Care End Date 03/29/22 Therapeutic Interventions Therapeutic Interventions Aquatic Therapy,Gait Training, Home Exercise Program,Manual Therapy,Neuromuscular Re- education,Patient/Caregiver Education,Self-Care/Home Management,Soft Tissue Mobilization,Therapeutic Activities,Therapeutic Exercises Modalities Cold Pack/Ice Massage,Electric Stimulation,Hot Packs Next Visit Focus/Plan Next Note Type Treatment Note Next Visit Plan Continue PT land and aquatic - based. Progress to 6 stairs for gait training, continue SLS as tolerated. Emphasis on core stabilization with all ex
--- NOTE | 2022-02-15 15:10 | PT.OTN ---
Current Diagnoses Other chronic pain (02/15/22) Unilateral post-traumatic osteoarthritis, right hip (02/15/22) Pain in right hip (02/15/22) Pain in right knee (02/15/22) Pain in left knee (02/15/22) Difficulty in walking, not elsewhere classified (02/15/22) Other symptoms and signs involving the musculoskeletal system (02/15/22) Physical Therapy Treatment Note PT-OP-A Visit Information Start: 01/04/22 11:15 Freq: Status: Active Protocol: Document 02/15/22 14:56 LJ (Rec: 02/15/22 15:09 LJ [id number]) Out-Patient Physical Therapy Visit Information Visit Information Visit Type Aquatic Treatment Note Visit Start Time 12:30 Visit Stop Time 01:15 Total Visit Minutes 45 Visit Number 12 Number of POLISHER ALUMINUM Visits 1 Precautions Precautions Pt states sh was a bit tired after last pool session but felt good. PT-OP-B Current Condition Start: 01/04/22 11:15 Freq: Status: Active Protocol: Document 02/09/22 12:58 SAK (Rec: 02/09/22 14:13 SAK [id number]) Current Condition History of Current Condition Onset Date 1 1/2 years Current Complaints LE weakness and pain History of Current Condition 1 1/2 years ago fell while stepping down without realizing there was a step and twisted on his knee. Left knee was doing all lifting work after that, has old footbal injury, and it started to hurt. Dr. Cruz had x- rays done, ice, Tylenol, and rest recommended. Patient reports he thinks he was too patient. Spent a lot of time sitting. Feels he lost a lot of leg strength. Used a walker for quite awhile, still uses at time especially at night going to bathroom. Legs fatigue quickly. Going to [place] in May, concerned about mobility to be able to enjoy the trip. States he knows he also needs to lose about 40 lbs Hasn't done the exercises issued from Orthopedist yet. Has done aquatic therapy exercises previously given. Prior Treatments and Tests x-ray: arthritis bilateral knees fall 11 years ago with fractured hip PT-OP-C Subjective Start: 01/04/22 11:15 Freq: Status: Active Protocol: Document 02/09/22 12:58 SAK (Rec: 02/09/22 14:13 SAK [id number]) OP-PT Subjective Patient Comments Patient Comments Trying not to sift into the mental set of no pain no gain . PT-OP-D Balance Start: 01/04/22 11:15 Freq: Status: Active Protocol: Document 01/04/22 14:27 [facility] (Rec: 01/04/22 16:36 [facility] [id number]) OP-PT Balance Assessment Sitting Balance Static Sitting Balance Ability Normal Dynamic Sitting Balance Ability Normal Standing Balance Static Standing Balance Ability Good Dynamic Standing Balance Ability Good Herrera Fall Scale Copyright Permission PT-OP-E Functional Tests Start: 01/04/22 11:15 Freq: Status: Active Protocol: Document 01/04/22 14:27 [facility] (Rec: 01/04/22 16:36 [facility] [id number]) Functional Tests 6 Minute Walk Test Distance 1128 Device Used none Comments antalgic, mild SOB PT-OP-G Mobility & Gait Start: 01/04/22 11:15 Freq: Status: Active Protocol: Document 01/04/22 14:27 [facility] (Rec: 01/04/22 16:36 [facility] [id number]) OP Mobility Evaluation Transfers Sit to Stand indep, no UE assist OP Gait Assessment Gait Gait Assistance Required: Independent Distance (Feet) 1,127 Able to Maintain Weight Bearing Status Yes During Gait Assistive Devices Assistive Device None Gait Deviations General Gait Pattern Antalgic Factors Limiting Gait Function Factors Limiting Gait Function Decreased Activity Tolerance, Pain Comments Gait Comments no LOB Stair Climbing Evaluation Evaluation Level of Assist On Stairs Standby Assistance Devices Stair Climbing Assistive Devices Left Railing,Right Railing Technique/Endurance Stair Climbing Direction Ascend and Descend Stair Climbing Technique Step to Step PT-OP-J Posture/Palpation/Skin Start: 01/04/22 11:15 Freq: Status: Active Protocol: Document 01/04/22 14:27 [facility] (Rec: 01/04/22 16:36 [facility] [id number]) Palpation Assessment Location medial knee joints Palpation Findings Tenderness PT-OP-K Range of Motion Start: 01/04/22 11:15 Freq: Status: Active Protocol: Document 01/04/22 14:27 [facility] (Rec: 01/04/22 16:36 [facility] [id number]) Hip Goniometric Range of Motion Hip ramses Flexion w/Knee Flexed 95 Straight Leg Raise 55 Extension 0 Abduction 30 Internal Rotation 10 External Rotation 40 Hip ROM Limitations Hip ROM Limitations Soft Tissue Tightness,Bony Restriction,Pain Knee Goniometric Range of Motion Knee ramses Flexion Active (degrees) 120 Extension Active (degrees) 10 Extension Passive (degrees) 5 Knee ROM Limitations Knee ROM Limitations Soft Tissue Tightness,Pain Ankle and Foot Goniometric Range of Motion Ankle and Foot ramses Dorsiflexion with Knee Flexed 5 Dorsiflexion with Knee Extended 0 Plantarflexion 40 Ankle and Foot ROM Limitations ROM Limitations Soft Tissue Tightness PT-OP-M Strength Start: 01/04/22 11:15 Freq: Status: Active Protocol: Document 01/04/22 14:27 [facility] (Rec: 01/04/22 15:23 [facility] [id number]) Hip Strength Hip Manual Muscle Testing Left Flexion (L2) 4 Good Extension (S1) 4- Good- Abduction 4- Good- External Rotation 4- Good- Internal Rotation 4 Good Right Flexion (L2) 4 Good Extension (S1) 4- Good- Abduction 4 Good External Rotation 4- Good- Internal Rotation 4 Good Knee Strength Knee Manual Muscle Testing ramses Flexion (S2) 4 Good Extension (L3) 4 Good Ankle/Foot Strength Ankle and Foot Manual Muscle Testing Left Dorsiflexion (L4) 4- Good- Plantarflexion (S1) 4- Good- Right Dorsiflexion (L4) 4+ Good+ Plantarflexion (S1) 4+ Good+ PT-OP-Q Treatments Start: 01/04/22 11:15 Freq: Status: Active Protocol: Document 02/09/22 12:58 [facility] (Rec: 02/09/22 14:13 [facility] [id number]) Cardio Equipment Recumbent Stepper (Sci-Fit) Duration (Minutes) 8 Resistance 1.8-2 Seat Position 14 Other cues for LE alignment Gym Equipment Cable Column (Body Solid) hamstring curl Resistance 50 Reps/Time 10x2 Shuttle Recovery Unilateral Squats Resistance 50 Reps/Time 10x2 ea Bilateral Squats Details green ball between knees Resistance 87 Reps/Time 20x Sport Cord green cord Exercise Details forward, sideways, backward Therapeutic Exercises Sitting Exercises hamstring curl Equipment Used L2 TB Reps/Minutes 10x Standing Exercises SLS Equipment Used mirror Reps/Minutes 5x ea Comments cues for engaging core and hip musculature HC/hip flexior stretch Side bilateral Reps/Minutes 30 resisted walk Standing Exercise Name side,fwd,bck Resistance red Equipment Used bar in gym Reps/Minutes 2 lengths each quad stretch Equipment Used chair Reps/Minutes 2x HC stretch Equipment Used KAYLA Reps/Minutes 2x30 Gait Training Gait Activity level Device Used no device, mirror for visual feed back Level of Assistance verbal cues for gluteal engagement Surface firm level Distance/Duration 10 ft x 2 Treatment Focus gluteal engagement, upright posture, dec lateral sway stairs Device Used ramses rail Level of Assistance verbal cues Surface 4 stairs Distance/Duration 5 stairs x 4 Treatment Focus gluteal activation Self-Care/Home Management Treatment Education Other Education gluteal activation with gait level and stairs PT-OP-R Modalities Start: 01/04/22 11:15 Freq: Status: Active Protocol: Document 02/09/22 12:58 SAK (Rec: 02/09/22 14:14 SAK [id number]) Hot Pack/Cold Pack Treatment Hot Pack Location bilataeral knees Patient Position Hooklying Treatment Duration (minutes) 15 Patient Tolerance Good Comments strap around distal thighs PT-OP-S Aquatic Treatment Start: 01/04/22 11:15 Freq: Status: Active Protocol: Document 02/15/22 14:56 LJ (Rec: 02/15/22 15:09 LJ [id number]) Aquatics Treatment Pool Entry/Exit Pool Entry/Exit Method Stairs Assistance Independent Water Walking Quick Reverses Water Level Chest Level Walking Equipment Ankle Floats Level of Assistance Verbal Cues Comments several self-corrected LOB Lunge Walk Water Level Chest Level Walking Equipment Ankle Floats Level of Assistance Verbal Cues [place] March Water Level Chest Level Walking Equipment Ankle Floats Level of Assistance Verbal Cues Marching Water Level Chest Level Walking Equipment Ankle Floats Level of Assistance Verbal Cues Comments reaching across body Sideways Water Level Chest Level Walking Equipment Ankle Floats Level of Assistance Verbal Cues Comments opposite UEs and LEs challenging Backwards Water Level Chest Level Walking Equipment Ankle Floats Level of Assistance Verbal Cues Forwards Water Level Chest Level Walking Equipment Ankle Floats Level of Assistance Verbal Cues Lower Extremity Exercises 4-way hip Body Position Standing Water Level Chest Level Equipment Ankle Floats Reps/Duration 20x ea knee flex/ext Body Position Standing Water Level Chest Level Equipment Ankle Floats Reps/Duration 20 Comments body positions to maximize drag and resistance squat Body Position Standing Water Level Waist Level Reps/Duration 10x2 heel raise,toe raise Reps/Duration 10x ea Lower Extremity Stretches quad Body Position Standing Equipment Small Noodle Reps/Duration 2x30 [place] Activities [place] Activities Bicycle Equipment seated on lg noodle Duration 7 min Comments pt fatigued Manual Techniques Aquatic Massage AquaStretch for BLEs with release at medial knee of both LEs at distal insertion of adductors. Stretch of hamstrings and calf mms PT-OP-T Assessment and Plan Start: 01/04/22 11:15 Freq: Status: Active Protocol: Document 02/15/22 14:56 [facility] (Rec: 02/15/22 15:09 [facility] [id number]) Physical Therapy Assessment Rehab Potential Rehabilitation Potential Good Evaluation Complexity Number of Personal Factors/Comorbidities 1-2 Number of Body Systems Impaired 3 Clinical Presentation at Evaluation Evolving Impairments Impairments Activity Tolerance,Pain,ROM, Strength Goals Three Impairment weakness and decreased flexibility bilateral LE's Impairment limits mobilty Short Term Goal (STG) Patient to be instructed in HEP for purposes of strengthening and flexibility to support activities in therapy 02/04/22: goal met STG Duration goal met Custodial Goal (LTG) Patient to be independent and compliant with HEP and aquatic exercise program and demonsrate 5/5 muscle strength and LE ROM WNL LTG Duration 04/06/21 Two Impairment antalgic gait Material Handler 1St Shift Goal (LTG) Improve pain sufficient to allow patient to ambulate without limp 02/04/22: noting less limp, less sc/o pain LTG Duration 04/06/21 One Impairment Impaired activity tolerance Impairment Lower extremity functional scale (LEFS) score 50% Short Term Goal (STG) Improve LEFS to at least 65% as measure of improved activity tolerance and functional strength 02/04/22: improved STG Duration 02/16/22 Material Handler 1St Shift Goal (LTG) Improve LEFS to at least 75% as measure of improved activity tolerance and ability to return to prior level of function LTG Duration 04/06/21 Progress Towards Goals Progress Towards Goals Progressing Toward Goals Assessment Summary Assessment Pt performed well with ankle floats. Balance improving. Pt reported decreased pain post AquaStretch 10 min session. Pt will benefit from continued therapy to increase strength, improve balance, and manage pain as well as increase tolerance for aerobic activity . Physical Therapy Plan Frequency and Duration Frequency of Treatment 2x/Week Duration of treatment (weeks) 12 Plan of Care Start Date 01/04/22 Plan of Care End Date 03/29/22 Therapeutic Interventions Therapeutic Interventions Aquatic Therapy,Gait Training, Home Exercise Program,Manual Therapy,Neuromuscular Re- education,Patient/Caregiver Education,Self-Care/Home Management,Soft Tissue Mobilization,Therapeutic Activities,Therapeutic Exercises Modalities Cold Pack/Ice Massage,Electric Stimulation,Hot Packs Next Visit Focus/Plan Next Note Type Treatment Note Next Visit Plan Continue PT land and aquatic - based. Progress to 6 stairs for gait training, continue SLS as tolerated. Emphasis on core stabilization with all ex. Aquatic: introduce more core stabilization exercises
--- NOTE | 2022-02-22 16:52 | PT.OTN ---
Current Diagnoses Other chronic pain (02/22/22) Unilateral post-traumatic osteoarthritis, right hip (02/22/22) Pain in right hip (02/22/22) Pain in right knee (02/22/22) Pain in left knee (02/22/22) Difficulty in walking, not elsewhere classified (02/22/22) Other symptoms and signs involving the musculoskeletal system (02/22/22) Physical Therapy Treatment Note PT-OP-A Visit Information Start: 01/04/22 11:15 Freq: Status: Active Protocol: Document 02/22/22 16:48 SAK (Rec: 02/23/22 16:52 SAK [id number]) Out-Patient Physical Therapy Visit Information Visit Information Visit Type Aquatic Treatment Note Visit Start Time 12:30 Visit Stop Time 01:15 Total Visit Minutes 45 Visit Number 13 Number of BLOOD BANK CALENDAR CONTROL CLERK Visits 0 PT-OP-B Current Condition Start: 01/04/22 11:15 Freq: Status: Active Protocol: Document 02/09/22 12:58 SAK (Rec: 02/09/22 14:13 SAK [id number]) Current Condition History of Current Condition Onset Date 1 1/2 years Current Complaints LE weakness and pain History of Current Condition 1 1/2 years ago fell while stepping down without realizing there was a step and twisted on his knee. Left knee was doing all lifting work after that, has old footbal injury, and it started to hurt. Dr. Cruz had x- rays done, ice, Tylenol, and rest recommended. Patient reports he thinks he was too patient. Spent a lot of time sitting. Feels he lost a lot of leg strength. Used a walker for quite awhile, still uses at time especially at night going to bathroom. Legs fatigue quickly. Going to [place] in May, concerned about mobility to be able to enjoy the trip. States he knows he also needs to lose about 40 lbs Hasn't done the exercises issued from Orthopedist yet. Has done aquatic therapy exercises previously given. Prior Treatments and Tests x-ray: arthritis bilateral knees fall 11 years ago with fractured hip PT-OP-C Subjective Start: 01/04/22 11:15 Freq: Status: Active Protocol: Document 02/22/22 16:48 SAK (Rec: 02/23/22 16:52 SAK [id number]) OP-PT Subjective Patient Comments Patient Comments States continues to feel improvement. PT-OP-D Balance Start: 01/04/22 11:15 Freq: Status: Active Protocol: Document 01/04/22 14:27 [facility] (Rec: 01/04/22 16:36 [facility] [id number]) OP-PT Balance Assessment Sitting Balance Static Sitting Balance Ability Normal Dynamic Sitting Balance Ability Normal Standing Balance Static Standing Balance Ability Good Dynamic Standing Balance Ability Good Herrera Fall Scale Copyright Permission PT-OP-E Functional Tests Start: 01/04/22 11:15 Freq: Status: Active Protocol: Document 01/04/22 14:27 [facility] (Rec: 01/04/22 16:36 [facility] [id number]) Functional Tests 6 Minute Walk Test Distance 1128 Device Used none Comments antalgic, mild SOB PT-OP-G Mobility & Gait Start: 01/04/22 11:15 Freq: Status: Active Protocol: Document 01/04/22 14:27 [facility] (Rec: 01/04/22 16:36 [facility] [id number]) OP Mobility Evaluation Transfers Sit to Stand indep, no UE assist OP Gait Assessment Gait Gait Assistance Required: Independent Distance (Feet) 1,127 Able to Maintain Weight Bearing Status Yes During Gait Assistive Devices Assistive Device None Gait Deviations General Gait Pattern Antalgic Factors Limiting Gait Function Factors Limiting Gait Function Decreased Activity Tolerance, Pain Comments Gait Comments no LOB Stair Climbing Evaluation Evaluation Level of Assist On Stairs Standby Assistance Devices Stair Climbing Assistive Devices Left Railing,Right Railing Technique/Endurance Stair Climbing Direction Ascend and Descend Stair Climbing Technique Step to Step PT-OP-J Posture/Palpation/Skin Start: 01/04/22 11:15 Freq: Status: Active Protocol: Document 01/04/22 14:27 [facility] (Rec: 01/04/22 16:36 [facility] [id number]) Palpation Assessment Location medial knee joints Palpation Findings Tenderness PT-OP-K Range of Motion Start: 01/04/22 11:15 Freq: Status: Active Protocol: Document 01/04/22 14:27 [facility] (Rec: 01/04/22 16:36 [facility] [id number]) Hip Goniometric Range of Motion Hip ramses Flexion w/Knee Flexed 95 Straight Leg Raise 55 Extension 0 Abduction 30 Internal Rotation 10 External Rotation 40 Hip ROM Limitations Hip ROM Limitations Soft Tissue Tightness,Bony Restriction,Pain Knee Goniometric Range of Motion Knee ramses Flexion Active (degrees) 120 Extension Active (degrees) 10 Extension Passive (degrees) 5 Knee ROM Limitations Knee ROM Limitations Soft Tissue Tightness,Pain Ankle and Foot Goniometric Range of Motion Ankle and Foot ramses Dorsiflexion with Knee Flexed 5 Dorsiflexion with Knee Extended 0 Plantarflexion 40 Ankle and Foot ROM Limitations ROM Limitations Soft Tissue Tightness PT-OP-M Strength Start: 01/04/22 11:15 Freq: Status: Active Protocol: Document 01/04/22 14:27 [facility] (Rec: 01/04/22 15:23 [facility] [id number]) Hip Strength Hip Manual Muscle Testing Left Flexion (L2) 4 Good Extension (S1) 4- Good- Abduction 4- Good- External Rotation 4- Good- Internal Rotation 4 Good Right Flexion (L2) 4 Good Extension (S1) 4- Good- Abduction 4 Good External Rotation 4- Good- Internal Rotation 4 Good Knee Strength Knee Manual Muscle Testing ramses Flexion (S2) 4 Good Extension (L3) 4 Good Ankle/Foot Strength Ankle and Foot Manual Muscle Testing Left Dorsiflexion (L4) 4- Good- Plantarflexion (S1) 4- Good- Right Dorsiflexion (L4) 4+ Good+ Plantarflexion (S1) 4+ Good+ PT-OP-Q Treatments Start: 01/04/22 11:15 Freq: Status: Active Protocol: Document 02/09/22 12:58 [facility] (Rec: 02/09/22 14:13 [facility] [id number]) Cardio Equipment Recumbent Stepper (Sci-Fit) Duration (Minutes) 8 Resistance 1.8-2 Seat Position 14 Other cues for LE alignment Gym Equipment Cable Column (Body Solid) hamstring curl Resistance 50 Reps/Time 10x2 Shuttle Recovery Unilateral Squats Resistance 50 Reps/Time 10x2 ea Bilateral Squats Details green ball between knees Resistance 87 Reps/Time 20x Sport Cord green cord Exercise Details forward, sideways, backward Therapeutic Exercises Sitting Exercises hamstring curl Equipment Used L2 TB Reps/Minutes 10x Standing Exercises SLS Equipment Used mirror Reps/Minutes 5x ea Comments cues for engaging core and hip musculature HC/hip flexior stretch Side bilateral Reps/Minutes 30 resisted walk Standing Exercise Name side,fwd,bck Resistance red Equipment Used bar in gym Reps/Minutes 2 lengths each quad stretch Equipment Used chair Reps/Minutes 2x HC stretch Equipment Used KAYLA Reps/Minutes 2x30 Gait Training Gait Activity level Device Used no device, mirror for visual feed back Level of Assistance verbal cues for gluteal engagement Surface firm level Distance/Duration 10 ft x 2 Treatment Focus gluteal engagement, upright posture, dec lateral sway stairs Device Used ramses rail Level of Assistance verbal cues Surface 4 stairs Distance/Duration 5 stairs x 4 Treatment Focus gluteal activation Self-Care/Home Management Treatment Education Other Education gluteal activation with gait level and stairs PT-OP-R Modalities Start: 01/04/22 11:15 Freq: Status: Active Protocol: Document 02/09/22 12:58 [facility] (Rec: 02/09/22 14:14 [facility] [id number]) Hot Pack/Cold Pack Treatment Hot Pack Location bilataeral knees Patient Position Hooklying Treatment Duration (minutes) 15 Patient Tolerance Good Comments strap around distal thighs PT-OP-S Aquatic Treatment Start: 01/04/22 11:15 Freq: Status: Active Protocol: Document 02/22/22 16:48 [facility] (Rec: 02/23/22 16:52 [facility] [id number]) Aquatics Treatment Pool Entry/Exit Pool Entry/Exit Method Stairs Assistance Independent Water Walking Quick Reverses Water Level Chest Level Walking Equipment Ankle Floats Level of Assistance Verbal Cues Comments several self-corrected LOB Lunge Walk Water Level Chest Level Walking Equipment Ankle Floats Level of Assistance Verbal Cues [place] March Water Level Chest Level Walking Equipment Ankle Floats Level of Assistance Verbal Cues Marching Water Level Chest Level Walking Equipment Ankle Floats Level of Assistance Verbal Cues Comments reaching across body Sideways Water Level Chest Level Walking Equipment Ankle Floats Level of Assistance Verbal Cues Comments opposite UEs and LEs challenging Backwards Water Level Chest Level Walking Equipment Ankle Floats Level of Assistance Verbal Cues [place] Water Level Chest Level Walking Equipment Ankle Floats Level of Assistance Verbal Cues Lower Extremity Exercises 4-way hip Body Position Standing Water Level Chest Level Equipment Ankle Floats Reps/Duration 20x ea knee flex/ext Body Position Standing Water Level Chest Level Equipment Ankle Floats Reps/Duration 20 Comments body positions to maximize drag and resistance squat Body Position Standing Water Level Waist Level Reps/Duration 10x2 heel raise,toe raise Reps/Duration 10x ea Lower Extremity Stretches IT band Body Position Standing Water Level Chest Level Equipment Ankle Floats quad Body Position Standing Equipment Ankle Floats Reps/Duration 2x30 HS Body Position Standing Water Level Chest Level Equipment Ankle Floats Reps/Duration 2x30 [place] Activities [place] Activities Bicycle,Bicycle Backwards, [place],Running Equipment large noodle Duration 10 min Comments pt fatigued PT-OP-T Assessment and Plan Start: 01/04/22 11:15 Freq: Status: Active Protocol: Document 02/22/22 16:48 [facility] (Rec: 02/23/22 16:52 [facility] [id number]) Physical Therapy Assessment Goals Three Impairment weakness and decreased flexibility bilateral LE's Impairment limits mobilty Short Term Goal (STG) Patient to be instructed in HEP for purposes of strengthening and flexibility to support activities in therapy 02/04/22: goal met STG Duration goal met Tree Trimming Line Technician Goal (LTG) Patient to be independent and compliant with HEP and aquatic exercise program and demonsrate / muscle strength and LE ROM WNL LTG Duration 04/06/21 Two Impairment antalgic gait Prison Goal (LTG) Improve pain sufficient to allow patient to ambulate without limp 02/04/22: noting less limp, less sc/o pain LTG Duration 04/06/21 One Impairment Impaired activity tolerance Impairment Lower extremity functional scale (LEFS) score 50% Short Term Goal (STG) Improve LEFS to at least 65% as measure of improved activity tolerance and functional strength 02/04/22: improved STG Duration 02/16/22 Prison Goal (LTG) Improve LEFS to at least 75% as measure of improved activity tolerance and ability to return to prior level of function LTG Duration 04/06/21 Progress Towards Goals Progress Towards Goals Progressing Toward Goals Assessment Summary Assessment Good tolerance for use of ankle floats with LE flexibility. Improving functional ROM and strength, activity tolerance. Physical Therapy Plan Frequency and Duration Frequency of Treatment 2x/Week Duration of treatment (weeks) 12 Plan of Care Start Date 01/04/22 Plan of Care End Date 03/29/22 Therapeutic Interventions Therapeutic Interventions Aquatic Therapy,Gait Training, Home Exercise Program,Manual Therapy,Neuromuscular Re- education,Patient/Caregiver Education,Self-Care/Home Management,Soft Tissue Mobilization,Therapeutic Activities,Therapeutic Exercises Modalities Cold Pack/Ice Massage,Electric Stimulation,Hot Packs Next Visit Focus/Plan Next Note Type Treatment Note Next Visit Plan Continue PT land and aquatic - based. Progress to 6 stairs for gait training, continue SLS as tolerated. Emphasis on core stabilization with all ex. Aquatic: introduce more core stabiization exercises
--- NOTE | 2022-03-02 15:13 | PT.OTN ---
Current Diagnoses Other chronic pain (03/02/22) Unilateral post-traumatic osteoarthritis, right hip (03/02/22) Pain in right hip (03/02/22) Pain in right knee (03/02/22) Pain in left knee (03/02/22) Difficulty in walking, not elsewhere classified (03/02/22) Other symptoms and signs involving the musculoskeletal system (03/02/22) Physical Therapy Treatment Note PT-OP-A Visit Information Start: 01/04/22 11:15 Freq: Status: Active Protocol: Document 03/02/22 14:32 SAK (Rec: 03/02/22 15:13 SAK [id number]) Out-Patient Physical Therapy Visit Information Visit Information Visit Type Treatment Note Visit Start Time 14:30 Visit Stop Time 15:30 Total Visit Minutes 60 Visit Number 14 PT-OP-B Current Condition Start: 01/04/22 11:15 Freq: Status: Active Protocol: Document 02/09/22 12:58 SAK (Rec: 02/09/22 14:13 SAK [id number]) Current Condition History of Current Condition Onset Date 1 1/2 years Current Complaints LE weakness and pain History of Current Condition 1 1/2 years ago fell while stepping down without realizing there was a step and twisted on his knee. Left knee was doing all lifting work after that, has old footbal injury, and it started to hurt. Dr. Cruz had x- rays done, ice, Tylenol, and rest recommended. Patient reports he thinks he was too patient. Spent a lot of time sitting. Feels he lost a lot of leg strength. Used a walker for quite awhile, still uses at time especially at night going to bathroom. Legs fatigue quickly. Going to [place] in May, concerned about mobility to be able to enjoy the trip. States he knows he also needs to lose about 40 lbs Hasn't done the exercises issued from Orthopedist yet. Has done aquatic therapy exercises previously given. Prior Treatments and Tests x-ray: arthritis bilateral knees fall 11 years ago with fractured hip PT-OP-C Subjective Start: 01/04/22 11:15 Freq: Status: Active Protocol: Document 03/02/22 14:32 SAK (Rec: 03/02/22 15:13 SAK [id number]) OP-PT Subjective Patient Comments Patient Comments No new c/o. Not as good with exercises due to holiday last week. PT-OP-D Balance Start: 01/04/22 11:15 Freq: Status: Active Protocol: Document 01/04/22 14:27 [facility] (Rec: 01/04/22 16:36 [facility] [id number]) OP-PT Balance Assessment Sitting Balance Static Sitting Balance Ability Normal Dynamic Sitting Balance Ability Normal Standing Balance Static Standing Balance Ability Good Dynamic Standing Balance Ability Good Herrera Fall Scale Copyright Permission PT-OP-E Functional Tests Start: 01/04/22 11:15 Freq: Status: Active Protocol: Document 01/04/22 14:27 [facility] (Rec: 01/04/22 16:36 [facility] [id number]) Functional Tests 6 Minute Walk Test Distance 1128 Device Used none Comments antalgic, mild SOB PT-OP-G Mobility & Gait Start: 01/04/22 11:15 Freq: Status: Active Protocol: Document 01/04/22 14:27 [facility] (Rec: 01/04/22 16:36 [facility] [id number]) OP Mobility Evaluation Transfers Sit to Stand indep, no UE assist OP Gait Assessment Gait Gait Assistance Required: Independent Distance (Feet) 1,127 Able to Maintain Weight Bearing Status Yes During Gait Assistive Devices Assistive Device None Gait Deviations General Gait Pattern Antalgic Factors Limiting Gait Function Factors Limiting Gait Function Decreased Activity Tolerance, Pain Comments Gait Comments no LOB Stair Climbing Evaluation Evaluation Level of Assist On Stairs Standby Assistance Devices Stair Climbing Assistive Devices Left Railing,Right Railing Technique/Endurance Stair Climbing Direction Ascend and Descend Stair Climbing Technique Step to Step PT-OP-J Posture/Palpation/Skin Start: 01/04/22 11:15 Freq: Status: Active Protocol: Document 01/04/22 14:27 [facility] (Rec: 01/04/22 16:36 [facility] [id number]) Palpation Assessment Location medial knee joints Palpation Findings Tenderness PT-OP-K Range of Motion Start: 01/04/22 11:15 Freq: Status: Active Protocol: Document 01/04/22 14:27 [facility] (Rec: 01/04/22 16:36 [facility] [id number]) Hip Goniometric Range of Motion Hip ramses Flexion w/Knee Flexed 95 Straight Leg Raise 55 Extension 0 Abduction 30 Internal Rotation 10 External Rotation 40 Hip ROM Limitations Hip ROM Limitations Soft Tissue Tightness,Bony Restriction,Pain Knee Goniometric Range of Motion Knee ramses Flexion Active (degrees) 120 Extension Active (degrees) 10 Extension Passive (degrees) 5 Knee ROM Limitations Knee ROM Limitations Soft Tissue Tightness,Pain Ankle and Foot Goniometric Range of Motion Ankle and Foot ramses Dorsiflexion with Knee Flexed 5 Dorsiflexion with Knee Extended 0 Plantarflexion 40 Ankle and Foot ROM Limitations ROM Limitations Soft Tissue Tightness PT-OP-M Strength Start: 01/04/22 11:15 Freq: Status: Active Protocol: Document 01/04/22 14:27 [facility] (Rec: 01/04/22 15:23 [facility] [id number]) Hip Strength Hip Manual Muscle Testing Left Flexion (L2) 4 Good Extension (S1) 4- Good- Abduction 4- Good- External Rotation 4- Good- Internal Rotation 4 Good Right Flexion (L2) 4 Good Extension (S1) 4- Good- Abduction 4 Good External Rotation 4- Good- Internal Rotation 4 Good Knee Strength Knee Manual Muscle Testing ramses Flexion (S2) 4 Good Extension (L3) 4 Good Ankle/Foot Strength Ankle and Foot Manual Muscle Testing Left Dorsiflexion (L4) 4- Good- Plantarflexion (S1) 4- Good- Right Dorsiflexion (L4) 4+ Good+ Plantarflexion (S1) 4+ Good+ PT-OP-Q Treatments Start: 01/04/22 11:15 Freq: Status: Active Protocol: Document 03/02/22 14:32 [facility] (Rec: 03/02/22 15:13 [facility] [id number]) Cardio Equipment Recumbent Stepper (Sci-Fit) Duration (Minutes) 10 Resistance 2 Seat Position 14 Other cues for LE alignment, 1.47 miles Gym Equipment Cable Column (Body Solid) hamstring curl Details ramses, unil Resistance 50, 30 Reps/Time 10x2 Shuttle Recovery Unilateral Squats Resistance 50 Reps/Time 10x2 ea Bilateral Squats Details green ball between knees Resistance 87 Reps/Time 20x Shuttle Balance 1 Details chains red Reps/Duration bal and wt shift Comments fwd/bck, side, staggered Therapeutic Exercises Standing Exercises SLS Equipment Used mirror Reps/Minutes 5x ea Comments cues for engaging core and hip musculature resisted walk Standing Exercise Name side,fwd,bck Resistance red Equipment Used bar in gym Reps/Minutes 2 lengths each quad stretch Equipment Used chair Reps/Minutes 2x HC stretch Equipment Used KAYLA Reps/Minutes 2x30 Gait Training Gait Activity level Device Used no device, mirror for visual feed back Level of Assistance verbal cues for gluteal engagement Surface firm level Distance/Duration 10 ft x 2 Treatment Focus gluteal engagement, upright posture, dec lateral sway stairs Device Used ramses rail Level of Assistance verbal cues Surface 4 stairs Distance/Duration 5 stairs x 4 Treatment Focus gluteal activation PT-OP-R Modalities Start: 01/04/22 11:15 Freq: Status: Active Protocol: Document 02/09/22 12:58 [facility] (Rec: 02/09/22 14:14 [facility] [id number]) Hot Pack/Cold Pack Treatment Hot Pack Location bilataeral knees Patient Position Hooklying Treatment Duration (minutes) 15 Patient Tolerance Good Comments strap around distal thighs PT-OP-S Aquatic Treatment Start: 01/04/22 11:15 Freq: Status: Active Protocol: Document 02/22/22 16:48 [facility] (Rec: 02/23/22 16:52 [facility] [id number]) Aquatics Treatment Pool Entry/Exit Pool Entry/Exit Method Stairs Assistance Independent Water Walking Quick Reverses Water Level Chest Level Walking Equipment Ankle Floats Level of Assistance Verbal Cues Comments several self-corrected LOB Lunge Walk Water Level Chest Level Walking Equipment Ankle Floats Level of Assistance Verbal Cues [place] March Water Level Chest Level Walking Equipment Ankle Floats Level of Assistance Verbal Cues Marching Water Level Chest Level Walking Equipment Ankle Floats Level of Assistance Verbal Cues Comments reaching across body Sideways Water Level Chest Level Walking Equipment Ankle Floats Level of Assistance Verbal Cues Comments opposite UEs and LEs challenging Backwards Water Level Chest Level Walking Equipment Ankle Floats Level of Assistance Verbal Cues Forwards Water Level Chest Level Walking Equipment Ankle Floats Level of Assistance Verbal Cues Lower Extremity Exercises 4-way hip Body Position Standing Water Level Chest Level Equipment Ankle Floats Reps/Duration 20x ea knee flex/ext Body Position Standing Water Level Chest Level Equipment Ankle Floats Reps/Duration 20 Comments body positions to maximize drag and resistance squat Body Position Standing Water Level Waist Level Reps/Duration 10x2 heel raise,toe raise Reps/Duration 10x ea Lower Extremity Stretches IT band Body Position Standing Water Level Chest Level Equipment Ankle Floats quad Body Position Standing Equipment Ankle Floats Reps/Duration 2x30 HS Body Position Standing Water Level Chest Level Equipment Ankle Floats Reps/Duration 2x30 [place] Activities [place] Activities Bicycle,Bicycle Backwards, Cross [place],Running Equipment large noodle Duration 10 min Comments pt fatigued PT-OP-T Assessment and Plan Start: 01/04/22 11:15 Freq: Status: Active Protocol: Document 03/02/22 14:32 EMELI (Rec: 03/02/22 15:13 [facility] [id number]) Physical Therapy Assessment Goals Three Impairment weakness and decreased flexibility bilateral LE's Impairment limits mobilty Short Term Goal (STG) Patient to be instructed in HEP for purposes of strengthening and flexibility to support activities in therapy 02/04/22: goal met STG Duration goal met [employer]spring Truing Goal (LTG) Patient to be independent and compliant with HEP and aquatic exercise program and demonsrate 08/06 muscle strength and LE ROM WNL LTG Duration 04/06/21 Two Impairment antalgic gait Custodial Goal (LTG) Improve pain sufficient to allow patient to ambulate without limp 02/04/22: noting less limp, less sc/o pain LTG Duration 04/06/21 One Impairment Impaired activity tolerance Impairment Lower extremity functional scale (LEFS) score 50% Short Term Goal (STG) Improve LEFS to at least 65% as measure of improved activity tolerance and functional strength 02/04/22: improved STG Duration 02/16/22 Custodial Goal (LTG) Improve LEFS to at least 75% as measure of improved activity tolerance and ability to return to prior level of function LTG Duration 04/06/21 Progress Towards Goals Progress Towards Goals Progressing Toward Goals Assessment Summary Assessment Improving functional strength and balance, increased SCi-fit to 10 min with good tolerance Physical Therapy Plan Frequency and Duration Frequency of Treatment 2x/Week Duration of treatment (weeks) 12 Plan of Care Start Date 01/04/22 Plan of Care End Date 03/29/22 Therapeutic Interventions Therapeutic Interventions Aquatic Therapy,Gait Training, Home Exercise Program,Manual Therapy,Neuromuscular Re- education,Patient/Caregiver Education,Self-Care/Home Management,Soft Tissue Mobilization,Therapeutic Activities,Therapeutic Exercises Modalities Cold Pack/Ice Massage,Electric Stimulation,Hot Packs Next Visit Focus/Plan Next Note Type Treatment Note Next Visit Plan Land-based: continue progression of strengthening, balance, flexibility. Aquatic: introduce more core stabiization exercises
--- NOTE | 2022-03-03 14:50 | PT.OTN ---
Current Diagnoses Other chronic pain (03/03/22) Unilateral post-traumatic osteoarthritis, right hip (03/03/22) Pain in right hip (03/03/22) Pain in right knee (03/03/22) Pain in left knee (03/03/22) Difficulty in walking, not elsewhere classified (03/03/22) Other symptoms and signs involving the musculoskeletal system (03/03/22) Physical Therapy Treatment Note PT-OP-A Visit Information Start: 01/04/22 11:15 Freq: Status: Active Protocol: Document 03/03/22 14:40 LJ (Rec: 03/03/22 14:50 LJ [id number]) Out-Patient Physical Therapy Visit Information Visit Information Visit Type Aquatic Treatment Note Visit Start Time 11:00 Visit Stop Time 11:45 Total Visit Minutes 45 Visit Number 61 Number of TRANSPORTATION DEPARTMENT HEAD Visits 1 PT-OP-B Current Condition Start: 01/04/22 11:15 Freq: Status: Active Protocol: Document 02/09/22 12:58 SAK (Rec: 02/09/22 14:13 SAK [id number]) Current Condition History of Current Condition Onset Date 1 1/2 years Current Complaints LE weakness and pain History of Current Condition 1 1/2 years ago fell while stepping down without realizing there was a step and twisted on his knee. Left knee was doing all lifting work after that, has old footbal injury, and it started to hurt. Dr. Cruz had x- rays done, ice, Tylenol, and rest recommended. Patient reports he thinks he was too patient. Spent a lot of time sitting. Feels he lost a lot of leg strength. Used a walker for quite awhile, still uses at time especially at night going to bathroom. Legs fatigue quickly. Going to [place] in May, concerned about mobility to be able to enjoy the trip. States he knows he also needs to lose about 40 lbs Hasn't done the exercises issued from Orthopedist yet. Has done aquatic therapy exercises previously given. Prior Treatments and Tests x-ray: arthritis bilateral knees fall 11 years ago with fractured hip PT-OP-C Subjective Start: 01/04/22 11:15 Freq: Status: Active Protocol: Document 03/03/22 14:40 LJ (Rec: 03/03/22 14:50 LJ [id number]) OP-PT Subjective Patient Comments Patient Comments States continues to feel improvement. PT-OP-D Balance Start: 01/04/22 11:15 Freq: Status: Active Protocol: Document 01/04/22 14:27 [facility] (Rec: 01/04/22 16:36 [facility] [id number]) OP-PT Balance Assessment Sitting Balance Static Sitting Balance Ability Normal Dynamic Sitting Balance Ability Normal Standing Balance Static Standing Balance Ability Good Dynamic Standing Balance Ability Good Herrera Fall Scale Copyright Permission PT-OP-E Functional Tests Start: 01/04/22 11:15 Freq: Status: Active Protocol: Document 01/04/22 14:27 [facility] (Rec: 01/04/22 16:36 [facility] [id number]) Functional Tests 6 Minute Walk Test Distance 1128 Device Used none Comments antalgic, mild SOB PT-OP-G Mobility & Gait Start: 01/04/22 11:15 Freq: Status: Active Protocol: Document 01/04/22 14:27 [facility] (Rec: 01/04/22 16:36 [facility] [id number]) OP Mobility Evaluation Transfers Sit to Stand indep, no UE assist OP Gait Assessment Gait Gait Assistance Required: Independent Distance (Feet) 1,127 Able to Maintain Weight Bearing Status Yes During Gait Assistive Devices Assistive Device None Gait Deviations General Gait Pattern Antalgic Factors Limiting Gait Function Factors Limiting Gait Function Decreased Activity Tolerance, Pain Comments Gait Comments no LOB Stair Climbing Evaluation Evaluation Level of Assist On Stairs Standby Assistance Devices Stair Climbing Assistive Devices Left Railing,Right Railing Technique/Endurance Stair Climbing Direction Ascend and Descend Stair Climbing Technique Step to Step PT-OP-J Posture/Palpation/Skin Start: 01/04/22 11:15 Freq: Status: Active Protocol: Document 01/04/22 14:27 [facility] (Rec: 01/04/22 16:36 [facility] [id number]) Palpation Assessment Location medial knee joints Palpation Findings Tenderness PT-OP-K Range of Motion Start: 01/04/22 11:15 Freq: Status: Active Protocol: Document 01/04/22 14:27 [facility] (Rec: 01/04/22 16:36 [facility] [id number]) Hip Goniometric Range of Motion Hip ramses Flexion w/Knee Flexed 95 Straight Leg Raise 55 Extension 0 Abduction 30 Internal Rotation 10 External Rotation 40 Hip ROM Limitations Hip ROM Limitations Soft Tissue Tightness,Bony Restriction,Pain Knee Goniometric Range of Motion Knee ramses Flexion Active (degrees) 120 Extension Active (degrees) 10 Extension Passive (degrees) 5 Knee ROM Limitations Knee ROM Limitations Soft Tissue Tightness,Pain Ankle and Foot Goniometric Range of Motion Ankle and Foot ramses Dorsiflexion with Knee Flexed 5 Dorsiflexion with Knee Extended 0 Plantarflexion 40 Ankle and Foot ROM Limitations ROM Limitations Soft Tissue Tightness PT-OP-M Strength Start: 01/04/22 11:15 Freq: Status: Active Protocol: Document 01/04/22 14:27 [facility] (Rec: 01/04/22 15:23 [facility] [id number]) Hip Strength Hip Manual Muscle Testing Left Flexion (L2) 4 Good Extension (S1) 4- Good- Abduction 4- Good- External Rotation 4- Good- Internal Rotation 4 Good Right Flexion (L2) 4 Good Extension (S1) 4- Good- Abduction 4 Good External Rotation 4- Good- Internal Rotation 4 Good Knee Strength Knee Manual Muscle Testing ramses Flexion (S2) 4 Good Extension (L3) 4 Good Ankle/Foot Strength Ankle and Foot Manual Muscle Testing Left Dorsiflexion (L4) 4- Good- Plantarflexion (S1) 4- Good- Right Dorsiflexion (L4) 4+ Good+ Plantarflexion (S1) 4+ Good+ PT-OP-Q Treatments Start: 01/04/22 11:15 Freq: Status: Active Protocol: Document 03/02/22 14:32 [facility] (Rec: 03/02/22 15:13 [facility] [id number]) Cardio Equipment Recumbent Stepper (Sci-Fit) Duration (Minutes) 10 Resistance 2 Seat Position 14 Other cues for LE alignment, 1.47 miles Gym Equipment Cable Column (Body Solid) hamstring curl Details ramses, unil Resistance 50, 30 Reps/Time 10x2 Shuttle Recovery Unilateral Squats Resistance 50 Reps/Time 10x2 ea Bilateral Squats Details green ball between knees Resistance 87 Reps/Time 20x Shuttle Balance 1 Details chains red Reps/Duration bal and wt shift Comments fwd/bck, side, staggered Therapeutic Exercises Standing Exercises SLS Equipment Used mirror Reps/Minutes 5x ea Comments cues for engaging core and hip musculature resisted walk Standing Exercise Name side,fwd,bck Resistance red Equipment Used bar in gym Reps/Minutes 2 lengths each quad stretch Equipment Used chair Reps/Minutes 2x HC stretch Equipment Used KAYLA Reps/Minutes 2x30 Gait Training Gait Activity level Device Used no device, mirror for visual feed back Level of Assistance verbal cues for gluteal engagement Surface firm level Distance/Duration 10 ft x 2 Treatment Focus gluteal engagement, upright posture, dec lateral sway stairs Device Used ramses rail Level of Assistance verbal cues Surface 4 stairs Distance/Duration 5 stairs x 4 Treatment Focus gluteal activation PT-OP-R Modalities Start: 01/04/22 11:15 Freq: Status: Active Protocol: Document 02/09/22 12:58 [facility] (Rec: 02/09/22 14:14 [facility] [id number]) Hot Pack/Cold Pack Treatment Hot Pack Location bilataeral knees Patient Position Hooklying Treatment Duration (minutes) 15 Patient Tolerance Good Comments strap around distal thighs PT-OP-S Aquatic Treatment Start: 01/04/22 11:15 Freq: Status: Active Protocol: Document 02/22/22 16:48 [facility] (Rec: 02/23/22 16:52 [facility] [id number]) Aquatics Treatment Pool Entry/Exit Pool Entry/Exit Method Stairs Assistance Independent Water Walking Quick Reverses Water Level Chest Level Walking Equipment Ankle Floats Level of Assistance Verbal Cues Comments several self-corrected LOB Lunge Walk Water Level Chest Level Walking Equipment Ankle Floats Level of Assistance Verbal Cues Comfort March Water Level Chest Level Walking Equipment Ankle Floats Level of Assistance Verbal Cues Marching Water Level Chest Level Walking Equipment Ankle Floats Level of Assistance Verbal Cues Comments reaching across body Sideways Water Level Chest Level Walking Equipment Ankle Floats Level of Assistance Verbal Cues Comments opposite UEs and LEs challenging Backwards Water Level Chest Level Walking Equipment Ankle Floats Level of Assistance Verbal Cues Forwards Water Level Chest Level Walking Equipment Ankle Floats Level of Assistance Verbal Cues Lower Extremity Exercises 4-way hip Body Position Standing Water Level Chest Level Equipment Ankle Floats Reps/Duration 20x ea knee flex/ext Body Position Standing Water Level Chest Level Equipment Ankle Floats Reps/Duration 20 Comments body positions to maximize drag and resistance squat Body Position Standing Water Level Waist Level Reps/Duration 10x2 heel raise,toe raise Reps/Duration 10x ea Lower Extremity Stretches IT band Body Position Standing Water Level Chest Level Equipment Ankle Floats quad Body Position Standing Equipment Ankle Floats Reps/Duration 2x30 HS Body Position Standing Water Level Chest Level Equipment Ankle Floats Reps/Duration 2x30 [place] Activities [place] Activities Bicycle,Bicycle Backwards, Cross Country,Running Equipment large noodle Duration 10 min Comments pt fatigued PT-OP-S Aquatic Treatment Start: 03/03/22 14:38 Freq: Status: Active Protocol: Document 03/03/22 14:40 [facility] (Rec: 03/03/22 14:50 LJ [id number]) Aquatics Treatment Pool Entry/Exit Pool Entry/Exit Method Stairs Assistance Independent Water Walking jogging Water Level Chest Level Walking Equipment Ankle Floats Comments 2 laps shallow Quick Reverses Water Level Chest Level Walking Equipment Ankle Floats Level of Assistance Verbal Cues Lunge Walk Water Level Chest Level Walking Equipment Ankle Floats Level of Assistance Verbal Cues Comfort March Water Level Chest Level Walking Equipment Ankle Floats Level of Assistance Verbal Cues Marching Water Level Chest Level Walking Equipment Ankle Floats Level of Assistance Verbal Cues Comments reaching across body Sideways Water Level Chest Level Walking Equipment Ankle Floats Level of Assistance Verbal Cues Comments opposite UEs and LEs challenging Backwards Water Level Chest Level Walking Equipment Ankle Floats Level of Assistance Verbal Cues Forwards Water Level Chest Level Walking Equipment Ankle Floats Level of Assistance Verbal Cues Lower Extremity Exercises 4-way hip Body Position Standing Water Level Chest Level Equipment Ankle Floats Reps/Duration 20x ea knee flex/ext Body Position Standing Water Level Chest Level Equipment Ankle Floats Reps/Duration 20 Comments body positions to maximize drag and resistance squat Body Position Standing Water Level Waist Level Reps/Duration 10x2 Comments cues for hip thrust at endrange of hip extension Lower Extremity Stretches hip flexors Body Position Standing Water Level Chest Level Reps/Duration 2x45 HC Details wall Reps/Duration 2x45 quad Body Position Standing Equipment Ankle Floats Reps/Duration 2x30 HS Body Position Standing Water Level Chest Level Equipment Ankle Floats Reps/Duration 2x30 Upper Extremity Exercises rows Body Position Standing Water Level Chest Level Equipment cords Reps/Duration 20 Comments cue core engagement Upper Extremity Stretches chest stretch Body Position Standing Reps/Duration 45 Comments corner stretch Spinal Exercises rotation Equipment cords Reps/Duration 10x B Comments 3 sec hold endrange Balance SLS Reps/Duration x2 min B Comments occ. hh on wall; [place] Activities [place] Activities Bicycle,Bicycle Backwards, Cross Country,Running Equipment large noodle Duration 10 min PT-OP-T Assessment and Plan Start: 01/04/22 11:15 Freq: Status: Active Protocol: Document 03/03/22 14:40 [facility] (Rec: 03/03/22 14:50 [facility] [id number]) Physical Therapy Assessment Rehab Potential Rehabilitation Potential Good Evaluation Complexity Number of Personal Factors/Comorbidities 1-2 Number of Body Systems Impaired 3 Clinical Presentation at Evaluation Evolving Impairments Impairments Activity Tolerance,Pain,ROM, Strength Goals Three Impairment weakness and decreased flexibility bilateral LE's Impairment limits mobilty Short Term Goal (STG) Patient to be instructed in HEP for purposes of strengthening and flexibility to support activities in therapy 02/04/22: goal met STG Duration goal met Dobie Man Goal (LTG) Patient to be independent and compliant with HEP and aquatic exercise program and demonsrate 08/06 muscle strength and LE ROM WNL LTG Duration 04/06/21 Two Impairment antalgic gait Prison Goal (LTG) Improve pain sufficient to allow patient to ambulate without limp 02/04/22: noting less limp, less sc/o pain LTG Duration 04/06/21 One Impairment Impaired activity tolerance Impairment Lower extremity functional scale (LEFS) score 50% Short Term Goal (STG) Improve LEFS to at least 65% as measure of improved activity tolerance and functional strength 02/04/22: improved STG Duration 02/16/22 Dobie Man Goal (LTG) Improve LEFS to at least 75% as measure of improved activity tolerance and ability to return to prior level of function LTG Duration 04/06/21 Progress Towards Goals Progress Towards Goals Progressing Toward Goals Assessment Summary Assessment Improving functional strength and balance, increased SCi-fit to 10 min with good tolerance Physical Therapy Plan Frequency and Duration Frequency of Treatment 2x/Week Duration of treatment (weeks) 12 Plan of Care Start Date 01/04/22 Plan of Care End Date 03/29/22 Therapeutic Interventions Therapeutic Interventions Aquatic Therapy,Gait Training, Home Exercise Program,Manual Therapy,Neuromuscular Re- education,Patient/Caregiver Education,Self-Care/Home Management,Soft Tissue Mobilization,Therapeutic Activities,Therapeutic Exercises Modalities Cold Pack/Ice Massage,Electric Stimulation,Hot Packs Next Visit Focus/Plan Next Note Type Treatment Note Next Visit Plan Land-based: continue progression of strengthening, balance, flexibility. Aquatic: introduce more core stabiization exercises. Continue progression of exercises as tolerated and indicated.
--- NOTE | 2022-03-10 16:41 | PT.OTN ---
Current Diagnoses Other chronic pain (03/10/22) Unilateral post-traumatic osteoarthritis, right hip (03/10/22) Pain in right hip (03/10/22) Pain in right knee (03/10/22) Pain in left knee (03/10/22) Difficulty in walking, not elsewhere classified (03/10/22) Other symptoms and signs involving the musculoskeletal system (03/10/22) Physical Therapy Treatment Note PT-OP-A Visit Information Start: 01/04/22 11:15 Freq: Status: Active Protocol: Document 03/10/22 16:29 LJ (Rec: 03/10/22 16:40 LJ [id number]) Out-Patient Physical Therapy Visit Information Visit Information Visit Type Aquatic Treatment Note Visit Start Time 11:00 Visit Stop Time 11:45 Total Visit Minutes 45 Visit Number 62 Number of SEWER AND INSPECTOR Visits 2 PT-OP-B Current Condition Start: 01/04/22 11:15 Freq: Status: Active Protocol: Document 02/09/22 12:58 SAK (Rec: 02/09/22 14:13 SAK [id number]) Current Condition History of Current Condition Onset Date 1 1/2 years Current Complaints LE weakness and pain History of Current Condition 1 1/2 years ago fell while stepping down without realizing there was a step and twisted on his knee. Left knee was doing all lifting work after that, has old footbal injury, and it started to hurt. Dr. Cruz had x- rays done, ice, Tylenol, and rest recommended. Patient reports he thinks he was too patient. Spent a lot of time sitting. Feels he lost a lot of leg strength. Used a walker for quite awhile, still uses at time especially at night going to bathroom. Legs fatigue quickly. Going to [place] in May, concerned about mobility to be able to enjoy the trip. States he knows he also needs to lose about 40 lbs Hasn't done the exercises issued from Orthopedist yet. Has done aquatic therapy exercises previously given. Prior Treatments and Tests x-ray: arthritis bilateral knees fall 11 years ago with fractured hip PT-OP-C Subjective Start: 01/04/22 11:15 Freq: Status: Active Protocol: Document 03/10/22 16:29 LJ (Rec: 03/10/22 16:40 LJ [id number]) OP-PT Subjective Patient Comments Patient Comments Pt feels aquatic therapy has been beneficial and is seeing improvements PT-OP-D Balance Start: 01/04/22 11:15 Freq: Status: Active Protocol: Document 01/04/22 14:27 [facility] (Rec: 01/04/22 16:36 [facility] [id number]) OP-PT Balance Assessment Sitting Balance Static Sitting Balance Ability Normal Dynamic Sitting Balance Ability Normal Standing Balance Static Standing Balance Ability Good Dynamic Standing Balance Ability Good Herrera Fall Scale Copyright Permission PT-OP-E Functional Tests Start: 01/04/22 11:15 Freq: Status: Active Protocol: Document 01/04/22 14:27 [facility] (Rec: 01/04/22 16:36 [facility] [id number]) Functional Tests 6 Minute Walk Test Distance 1128 Device Used none Comments antalgic, mild SOB PT-OP-G Mobility & Gait Start: 01/04/22 11:15 Freq: Status: Active Protocol: Document 01/04/22 14:27 [facility] (Rec: 01/04/22 16:36 [facility] [id number]) OP Mobility Evaluation Transfers Sit to Stand indep, no UE assist OP Gait Assessment Gait Gait Assistance Required: Independent Distance (Feet) 1,127 Able to Maintain Weight Bearing Status Yes During Gait Assistive Devices Assistive Device None Gait Deviations General Gait Pattern Antalgic Factors Limiting Gait Function Factors Limiting Gait Function Decreased Activity Tolerance, Pain Comments Gait Comments no LOB Stair Climbing Evaluation Evaluation Level of Assist On Stairs Standby Assistance Devices Stair Climbing Assistive Devices Left Railing,Right Railing Technique/Endurance Stair Climbing Direction Ascend and Descend Stair Climbing Technique Step to Step PT-OP-J Posture/Palpation/Skin Start: 01/04/22 11:15 Freq: Status: Active Protocol: Document 01/04/22 14:27 [facility] (Rec: 01/04/22 16:36 [facility] [id number]) Palpation Assessment Location medial knee joints Palpation Findings Tenderness PT-OP-K Range of Motion Start: 01/04/22 11:15 Freq: Status: Active Protocol: Document 01/04/22 14:27 [facility] (Rec: 01/04/22 16:36 [facility] [id number]) Hip Goniometric Range of Motion Hip ramses Flexion w/Knee Flexed 95 Straight Leg Raise 55 Extension 0 Abduction 30 Internal Rotation 10 External Rotation 40 Hip ROM Limitations Hip ROM Limitations Soft Tissue Tightness,Bony Restriction,Pain Knee Goniometric Range of Motion Knee ramses Flexion Active (degrees) 120 Extension Active (degrees) 10 Extension Passive (degrees) 5 Knee ROM Limitations Knee ROM Limitations Soft Tissue Tightness,Pain Ankle and Foot Goniometric Range of Motion Ankle and Foot ramses Dorsiflexion with Knee Flexed 5 Dorsiflexion with Knee Extended 0 Plantarflexion 40 Ankle and Foot ROM Limitations ROM Limitations Soft Tissue Tightness PT-OP-M Strength Start: 01/04/22 11:15 Freq: Status: Active Protocol: Document 01/04/22 14:27 [facility] (Rec: 01/04/22 15:23 [facility] [id number]) Hip Strength Hip Manual Muscle Testing Left Flexion (L2) 4 Good Extension (S1) 4- Good- Abduction 4- Good- External Rotation 4- Good- Internal Rotation 4 Good Right Flexion (L2) 4 Good Extension (S1) 4- Good- Abduction 4 Good External Rotation 4- Good- Internal Rotation 4 Good Knee Strength Knee Manual Muscle Testing ramses Flexion (S2) 4 Good Extension (L3) 4 Good Ankle/Foot Strength Ankle and Foot Manual Muscle Testing Left Dorsiflexion (L4) 4- Good- Plantarflexion (S1) 4- Good- Right Dorsiflexion (L4) 4+ Good+ Plantarflexion (S1) 4+ Good+ PT-OP-Q Treatments Start: 01/04/22 11:15 Freq: Status: Active Protocol: Document 03/02/22 14:32 [facility] (Rec: 03/02/22 15:13 [facility] [id number]) Cardio Equipment Recumbent Stepper (Sci-Fit) Duration (Minutes) 10 Resistance 2 Seat Position 14 Other cues for LE alignment, 1.47 miles Gym Equipment Cable Column (Body Solid) hamstring curl Details ramses, unil Resistance 50, 30 Reps/Time 10x2 Shuttle Recovery Unilateral Squats Resistance 50 Reps/Time 10x2 ea Bilateral Squats Details green ball between knees Resistance 87 Reps/Time 20x Shuttle Balance 1 Details chains red Reps/Duration bal and wt shift Comments fwd/bck, side, staggered Therapeutic Exercises Standing Exercises SLS Equipment Used mirror Reps/Minutes 5x ea Comments cues for engaging core and hip musculature resisted walk Standing Exercise Name side,fwd,bck Resistance red Equipment Used bar in gym Reps/Minutes 2 lengths each quad stretch Equipment Used chair Reps/Minutes 2x HC stretch Equipment Used KAYLA Reps/Minutes 2x30 Gait Training Gait Activity level Device Used no device, mirror for visual feed back Level of Assistance verbal cues for gluteal engagement Surface firm level Distance/Duration 10 ft x 2 Treatment Focus gluteal engagement, upright posture, dec lateral sway stairs Device Used ramses rail Level of Assistance verbal cues Surface 4 stairs Distance/Duration 5 stairs x 4 Treatment Focus gluteal activation PT-OP-R Modalities Start: 01/04/22 11:15 Freq: Status: Active Protocol: Document 02/09/22 12:58 [facility] (Rec: 02/09/22 14:14 [facility] [id number]) Hot Pack/Cold Pack Treatment Hot Pack Location bilataeral knees Patient Position Hooklying Treatment Duration (minutes) 15 Patient Tolerance Good Comments strap around distal thighs PT-OP-S Aquatic Treatment Start: 01/04/22 11:15 Freq: Status: Active Protocol: Document 02/22/22 16:48 [facility] (Rec: 02/23/22 16:52 [facility] [id number]) Aquatics Treatment Pool Entry/Exit Pool Entry/Exit Method Stairs Assistance Independent Water Walking Quick Reverses Water Level Chest Level Walking Equipment Ankle Floats Level of Assistance Verbal Cues Comments several self-corrected LOB Lunge Walk Water Level Chest Level Walking Equipment Ankle Floats Level of Assistance Verbal Cues [place] March Water Level Chest Level Walking Equipment Ankle Floats Level of Assistance Verbal Cues Marching Water Level Chest Level Walking Equipment Ankle Floats Level of Assistance Verbal Cues Comments reaching across body Sideways Water Level Chest Level Walking Equipment Ankle Floats Level of Assistance Verbal Cues Comments opposite UEs and LEs challenging Backwards Water Level Chest Level Walking Equipment Ankle Floats Level of Assistance Verbal Cues [place] Water Level Chest Level Walking Equipment Ankle Floats Level of Assistance Verbal Cues Lower Extremity Exercises 4-way hip Body Position Standing Water Level Chest Level Equipment Ankle Floats Reps/Duration 20x ea knee flex/ext Body Position Standing Water Level Chest Level Equipment Ankle Floats Reps/Duration 20 Comments body positions to maximize drag and resistance squat Body Position Standing Water Level Waist Level Reps/Duration 10x2 heel raise,toe raise Reps/Duration 10x ea Lower Extremity Stretches IT band Body Position Standing Water Level Chest Level Equipment Ankle Floats quad Body Position Standing Equipment Ankle Floats Reps/Duration 2x30 HS Body Position Standing Water Level Chest Level Equipment Ankle Floats Reps/Duration 2x30 [place] Activities [place] Activities Bicycle,Bicycle Backwards, Cross [place],Running Equipment large noodle Duration 10 min Comments pt fatigued PT-OP-S Aquatic Treatment Start: 03/03/22 14:38 Freq: Status: Active Protocol: Document 03/10/22 16:29 [facility] (Rec: 03/10/22 16:40 LJ [id number]) Aquatics Treatment Pool Entry/Exit Pool Entry/Exit Method Stairs Assistance Independent Water Walking jogging Water Level Chest Level Walking Equipment Ankle Floats Comments 2 laps shallow Quick Reverses Water Level Chest Level Walking Equipment Ankle Floats Level of Assistance Verbal Cues Lunge Walk Water Level Chest Level Walking Equipment Ankle Floats Level of Assistance Verbal Cues [place] March Water Level Chest Level Walking Equipment Ankle Floats Level of Assistance Verbal Cues Marching Water Level Chest Level Walking Equipment Ankle Floats Level of Assistance Verbal Cues Comments reaching across body Sideways Water Level Chest Level Walking Equipment Ankle Floats Level of Assistance Verbal Cues Comments opposite UEs and LEs challenging Backwards Water Level Chest Level Walking Equipment Ankle Floats Level of Assistance Verbal Cues [place] Water Level Chest Level Walking Equipment Ankle Floats Level of Assistance Verbal Cues Lower Extremity Exercises hacky sack Body Position Standing Water Level Chest Level Equipment Ankle Floats Reps/Duration 3x 30 jacks Body Position Standing Water Level Chest Level Equipment Ankle Floats Reps/Duration 3x 30 ski Body Position Standing Water Level Chest Level Equipment Ankle Floats Reps/Duration 3x 30 4-way hip Body Position Standing Water Level Chest Level Equipment Ankle Floats Reps/Duration 20x ea squat Body Position Standing Water Level Waist Level Reps/Duration 10x2 Comments cues for hip thrust at endrange of hip extension Lower Extremity Stretches hip flexors Body Position Standing Water Level Chest Level Reps/Duration 2x45 HC Details wall Reps/Duration 2x45 quad Body Position Standing Equipment Ankle Floats Reps/Duration 2x30 HS Body Position Standing Water Level Chest Level Equipment Ankle Floats Reps/Duration 2x30 Upper Extremity Exercises rows Body Position Standing Water Level Chest Level Equipment cords Reps/Duration 20 Comments cue core engagement Spinal Exercises rotation Equipment cords Reps/Duration 10x B Comments 3 sec hold endrange Balance SLS Reps/Duration x2 min B Comments occ. hh on wall; [place] Activities [place] Activities Bicycle,Bicycle Backwards, Cross Country,Running Equipment large noodle Duration 10 min PT-OP-T Assessment and Plan Start: 01/04/22 11:15 Freq: Status: Active Protocol: Document 03/10/22 16:29 [facility] (Rec: 03/10/22 16:40 [facility] [id number]) Physical Therapy Assessment Rehab Potential Rehabilitation Potential Good Evaluation Complexity Number of Personal Factors/Comorbidities 1-2 Number of Body Systems Impaired 3 Clinical Presentation at Evaluation Evolving Impairments Impairments Activity Tolerance,Pain,ROM, Strength Goals Three Impairment weakness and decreased flexibility bilateral LE's Impairment limits mobilty Short Term Goal (STG) Patient to be instructed in HEP for purposes of strengthening and flexibility to support activities in therapy 02/04/22: goal met STG Duration goal met Mcfp Goal (LTG) Patient to be independent and compliant with HEP and aquatic exercise program and demonsrate 08/06 muscle strength and LE ROM WNL LTG Duration 04/06/21 Two Impairment antalgic gait Mcfp Goal (LTG) Improve pain sufficient to allow patient to ambulate without limp 02/04/22: noting less limp, less sc/o pain LTG Duration 04/06/21 One Impairment Impaired activity tolerance Impairment Lower extremity functional scale (LEFS) score 50% Short Term Goal (STG) Improve LEFS to at least 65% as measure of improved activity tolerance and functional strength 02/04/22: improved STG Duration 02/16/22 Electrical Experimental Mechanic Goal (LTG) Improve LEFS to at least 75% as measure of improved activity tolerance and ability to return to prior level of function LTG Duration 04/06/21 Progress Towards Goals Progress Towards Goals Progressing Toward Goals Assessment Summary Assessment Pt able to perform all exercises with good form without fatigue. Advanced him with ski, mariia, and hacky sack which require slight jumping motion. Good tolerance. Pt was educated about community aquatic exercise classes at the pool. He is appropriate for lower level class. Physical Therapy Plan Frequency and Duration Frequency of Treatment 2x/Week Duration of treatment (weeks) 12 Plan of Care Start Date 01/04/22 Plan of Care End Date 03/29/22 Therapeutic Interventions Therapeutic Interventions Aquatic Therapy,Gait Training, Home Exercise Program,Manual Therapy,Neuromuscular Re- education,Patient/Caregiver Education,Self-Care/Home Management,Soft Tissue Mobilization,Therapeutic Activities,Therapeutic Exercises Modalities Cold Pack/Ice Massage,Electric Stimulation,Hot Packs Next Visit Focus/Plan Next Note Type Treatment Note Next Visit Plan Land-based: continue progression of strengthening, balance, flexibility. Aquatic: introduce more core stabiization exercises. Continue progression of exercises as tolerated and indicated.
--- NOTE | 2022-03-17 16:37 | PT.OTN ---
Current Diagnoses Other chronic pain (03/17/22) Unilateral post-traumatic osteoarthritis, right hip (03/17/22) Pain in right hip (03/17/22) Pain in right knee (03/17/22) Pain in left knee (03/17/22) Difficulty in walking, not elsewhere classified (03/17/22) Other symptoms and signs involving the musculoskeletal system (03/17/22) Physical Therapy Treatment Note PT-OP-A Visit Information Start: 01/04/22 11:15 Freq: Status: Active Protocol: Document 03/17/22 16:24 LJ (Rec: 03/17/22 16:37 LJ [id number]) Out-Patient Physical Therapy Visit Information Visit Information Visit Type Aquatic Treatment Note Visit Start Time 11:45 Visit Stop Time 12:30 Total Visit Minutes 45 Visit Number 63 Number of DATA CENTER TECHNICIAN Visits 3 PT-OP-B Current Condition Start: 01/04/22 11:15 Freq: Status: Active Protocol: Document 02/09/22 12:58 SAK (Rec: 02/09/22 14:13 SAK [id number]) Current Condition History of Current Condition Onset Date 1 1/2 years Current Complaints LE weakness and pain History of Current Condition 1 1/2 years ago fell while stepping down without realizing there was a step and twisted on his knee. Left knee was doing all lifting work after that, has old footbal injury, and it started to hurt. Dr. Cruz had x- rays done, ice, Tylenol, and rest recommended. Patient reports he thinks he was too patient. Spent a lot of time sitting. Feels he lost a lot of leg strength. Used a walker for quite awhile, still uses at time especially at night going to bathroom. Legs fatigue quickly. Going to [place] in May, concerned about mobility to be able to enjoy the trip. States he knows he also needs to lose about 40 lbs Hasn't done the exercises issued from Orthopedist yet. Has done aquatic therapy exercises previously given. Prior Treatments and Tests x-ray: arthritis bilateral knees fall 11 years ago with fractured hip PT-OP-C Subjective Start: 01/04/22 11:15 Freq: Status: Active Protocol: Document 03/17/22 16:24 LJ (Rec: 03/17/22 16:37 LJ [id number]) OP-PT Subjective Patient Comments Patient Comments States continues to feel improvement. Informed Aquatic Therapy will be cancelled and is sad about that. States he is going to [place] and plans to exercise in the hotel pool. PT-OP-D Balance Start: 01/04/22 11:15 Freq: Status: Active Protocol: Document 01/04/22 14:27 [facility] (Rec: 01/04/22 16:36 [facility] [id number]) OP-PT Balance Assessment Sitting Balance Static Sitting Balance Ability Normal Dynamic Sitting Balance Ability Normal Standing Balance Static Standing Balance Ability Good Dynamic Standing Balance Ability Good Herrera Fall Scale Copyright Permission PT-OP-E Functional Tests Start: 01/04/22 11:15 Freq: Status: Active Protocol: Document 01/04/22 14:27 [facility] (Rec: 01/04/22 16:36 [facility] [id number]) Functional Tests 6 Minute Walk Test Distance 1128 Device Used none Comments antalgic, mild SOB PT-OP-G Mobility & Gait Start: 01/04/22 11:15 Freq: Status: Active Protocol: Document 01/04/22 14:27 [facility] (Rec: 01/04/22 16:36 [facility] [id number]) OP Mobility Evaluation Transfers Sit to Stand indep, no UE assist OP Gait Assessment Gait Gait Assistance Required: Independent Distance (Feet) 1,127 Able to Maintain Weight Bearing Status Yes During Gait Assistive Devices Assistive Device None Gait Deviations General Gait Pattern Antalgic Factors Limiting Gait Function Factors Limiting Gait Function Decreased Activity Tolerance, Pain Comments Gait Comments no LOB Stair Climbing Evaluation Evaluation Level of Assist On Stairs Standby Assistance Devices Stair Climbing Assistive Devices Left Railing,Right Railing Technique/Endurance Stair Climbing Direction Ascend and Descend Stair Climbing Technique Step to Step PT-OP-J Posture/Palpation/Skin Start: 01/04/22 11:15 Freq: Status: Active Protocol: Document 01/04/22 14:27 [facility] (Rec: 01/04/22 16:36 [facility] [id number]) Palpation Assessment Location medial knee joints Palpation Findings Tenderness PT-OP-K Range of Motion Start: 01/04/22 11:15 Freq: Status: Active Protocol: Document 01/04/22 14:27 [facility] (Rec: 01/04/22 16:36 [facility] [id number]) Hip Goniometric Range of Motion Hip ramses Flexion w/Knee Flexed 95 Straight Leg Raise 55 Extension 0 Abduction 30 Internal Rotation 10 External Rotation 40 Hip ROM Limitations Hip ROM Limitations Soft Tissue Tightness,Bony Restriction,Pain Knee Goniometric Range of Motion Knee ramses Flexion Active (degrees) 120 Extension Active (degrees) 10 Extension Passive (degrees) 5 Knee ROM Limitations Knee ROM Limitations Soft Tissue Tightness,Pain Ankle and Foot Goniometric Range of Motion Ankle and Foot ramses Dorsiflexion with Knee Flexed 5 Dorsiflexion with Knee Extended 0 Plantarflexion 40 Ankle and Foot ROM Limitations ROM Limitations Soft Tissue Tightness PT-OP-M Strength Start: 01/04/22 11:15 Freq: Status: Active Protocol: Document 01/04/22 14:27 [facility] (Rec: 01/04/22 15:23 [facility] [id number]) Hip Strength Hip Manual Muscle Testing Left Flexion (L2) 4 Good Extension (S1) 4- Good- Abduction 4- Good- External Rotation 4- Good- Internal Rotation 4 Good Right Flexion (L2) 4 Good Extension (S1) 4- Good- Abduction 4 Good External Rotation 4- Good- Internal Rotation 4 Good Knee Strength Knee Manual Muscle Testing ramses Flexion (S2) 4 Good Extension (L3) 4 Good Ankle/Foot Strength Ankle and Foot Manual Muscle Testing Left Dorsiflexion (L4) 4- Good- Plantarflexion (S1) 4- Good- Right Dorsiflexion (L4) 4+ Good+ Plantarflexion (S1) 4+ Good+ PT-OP-Q Treatments Start: 01/04/22 11:15 Freq: Status: Active Protocol: Document 03/02/22 14:32 [facility] (Rec: 03/02/22 15:13 [facility] [id number]) Cardio Equipment Recumbent Stepper (Sci-Fit) Duration (Minutes) 10 Resistance 2 Seat Position 14 Other cues for LE alignment, 1.47 miles Gym Equipment Cable Column (Body Solid) hamstring curl Details ramses, unil Resistance 50, 30 Reps/Time 10x2 Shuttle Recovery Unilateral Squats Resistance 50 Reps/Time 10x2 ea Bilateral Squats Details green ball between knees Resistance 87 Reps/Time 20x Shuttle Balance 1 Details chains red Reps/Duration bal and wt shift Comments fwd/bck, side, staggered Therapeutic Exercises Standing Exercises SLS Equipment Used mirror Reps/Minutes 5x ea Comments cues for engaging core and hip musculature resisted walk Standing Exercise Name side,fwd,bck Resistance red Equipment Used bar in gym Reps/Minutes 2 lengths each quad stretch Equipment Used chair Reps/Minutes 2x HC stretch Equipment Used KAYLA Reps/Minutes 2x30 Gait Training Gait Activity level Device Used no device, mirror for visual feed back Level of Assistance verbal cues for gluteal engagement Surface firm level Distance/Duration 10 ft x 2 Treatment Focus gluteal engagement, upright posture, dec lateral sway stairs Device Used ramses rail Level of Assistance verbal cues Surface 4 stairs Distance/Duration 5 stairs x 4 Treatment Focus gluteal activation PT-OP-R Modalities Start: 01/04/22 11:15 Freq: Status: Active Protocol: Document 02/09/22 12:58 SAK (Rec: 02/09/22 14:14 [facility] [id number]) Hot Pack/Cold Pack Treatment Hot Pack Location bilataeral knees Patient Position Hooklying Treatment Duration (minutes) 15 Patient Tolerance Good Comments strap around distal thighs PT-OP-S Aquatic Treatment Start: 01/04/22 11:15 Freq: Status: Active Protocol: Document 02/22/22 16:48 [facility] (Rec: 02/23/22 16:52 [facility] [id number]) Aquatics Treatment Pool Entry/Exit Pool Entry/Exit Method Stairs Assistance Independent Water Walking Quick Reverses Water Level Chest Level Walking Equipment Ankle Floats Level of Assistance Verbal Cues Comments several self-corrected LOB Lunge Walk Water Level Chest Level Walking Equipment Ankle Floats Level of Assistance Verbal Cues [place] March Water Level Chest Level Walking Equipment Ankle Floats Level of Assistance Verbal Cues Marching Water Level Chest Level Walking Equipment Ankle Floats Level of Assistance Verbal Cues Comments reaching across body Sideways Water Level Chest Level Walking Equipment Ankle Floats Level of Assistance Verbal Cues Comments opposite UEs and LEs challenging Backwards Water Level Chest Level Walking Equipment Ankle Floats Level of Assistance Verbal Cues Forwards Water Level Chest Level Walking Equipment Ankle Floats Level of Assistance Verbal Cues Lower Extremity Exercises 4-way hip Body Position Standing Water Level Chest Level Equipment Ankle Floats Reps/Duration 20x ea knee flex/ext Body Position Standing Water Level Chest Level Equipment Ankle Floats Reps/Duration 20 Comments body positions to maximize drag and resistance squat Body Position Standing Water Level Waist Level Reps/Duration 10x2 heel raise,toe raise Reps/Duration 10x ea Lower Extremity Stretches IT band Body Position Standing Water Level Chest Level Equipment Ankle Floats quad Body Position Standing Equipment Ankle Floats Reps/Duration 2x30 HS Body Position Standing Water Level Chest Level Equipment Ankle Floats Reps/Duration 2x30 Colby Activities Colby Activities Bicycle,Bicycle Backwards, Cross [place],Running Equipment large noodle Duration 10 min Comments pt fatigued PT-OP-S Aquatic Treatment Start: 03/03/22 14:38 Freq: Status: Active Protocol: Document 03/17/22 16:24 [facility] (Rec: 03/17/22 16:37 [id number]) Aquatics Treatment Pool Entry/Exit Pool Entry/Exit Method Stairs Assistance Independent Water Walking stop start Water Level Chest Level Walking Equipment Ankle Floats jogging Water Level Chest Level Walking Equipment Ankle Floats Comments 2 laps shallow Quick Reverses Water Level Chest Level Walking Equipment Ankle Floats Level of Assistance Verbal Cues Lunge Walk Water Level Chest Level Walking Equipment Ankle Floats Level of Assistance Verbal Cues [place] March Water Level Chest Level Walking Equipment Ankle Floats Level of Assistance Verbal Cues Marching Water Level Chest Level Walking Equipment Ankle Floats Level of Assistance Verbal Cues Sideways Water Level Chest Level Walking Equipment Ankle Floats Level of Assistance Verbal Cues Comments opposite UEs and LEs challenging Backwards Water Level Chest Level Walking Equipment Ankle Floats Level of Assistance Verbal Cues Forwards Water Level Chest Level Walking Equipment Ankle Floats Level of Assistance Verbal Cues Lower Extremity Exercises jacks Body Position Standing Water Level Chest Level Equipment Ankle Floats Reps/Duration 3x 30 ski Body Position Standing Water Level Chest Level Equipment Ankle Floats Reps/Duration 3x 30 4-way hip Body Position Standing Water Level Chest Level Equipment Ankle Floats Reps/Duration 20x ea Comments cues for posture Lower Extremity Stretches hip flexors Body Position Standing Water Level Chest Level Reps/Duration 2x45 HC Details wall Reps/Duration 2x45 HS Body Position Standing Water Level Chest Level Equipment Ankle Floats Reps/Duration 2x30 Upper Extremity Stretches chest stretch Body Position Standing Reps/Duration 45 Comments corner stretch Balance steps Details all directions Reps/Duration 8 passes SLS Reps/Duration x5 attempts B Comments occ. hh on wall; Colby Activities Colby Activities Bicycle,Bicycle Backwards Equipment large noodle Duration 10 min PT-OP-T Assessment and Plan Start: 01/04/22 11:15 Freq: Status: Active Protocol: Document 03/17/22 16:24 [facility] (Rec: 03/17/22 16:37 [id number]) Physical Therapy Assessment Rehab Potential Rehabilitation Potential Good Evaluation Complexity Number of Personal Factors/Comorbidities 1-2 Number of Body Systems Impaired 3 Clinical Presentation at Evaluation Evolving Impairments Impairments Activity Tolerance,Balance, Gait,Pain,ROM,Strength Goals Three Impairment weakness and decreased flexibility bilateral LE's Impairment limits mobilty Short Term Goal (STG) Patient to be instructed in HEP for purposes of strengthening and flexibility to support activities in therapy 02/04/22: goal met STG Duration goal met Halfway Goal (LTG) Patient to be independent and compliant with HEP and aquatic exercise program and demonsrate 5/5 muscle strength and LE ROM WNL LTG Duration 04/06/21 Two Impairment antalgic gait Halfway Goal (LTG) Improve pain sufficient to allow patient to ambulate without limp 02/04/22: noting less limp, less sc/o pain LTG Duration 04/06/21 One Impairment Impaired activity tolerance Impairment Lower extremity functional scale (LEFS) score 50% Short Term Goal (STG) Improve LEFS to at least 65% as measure of improved activity tolerance and functional strength 02/04/22: improved STG Duration 02/16/22 Halfway Goal (LTG) Improve LEFS to at least 75% as measure of improved activity tolerance and ability to return to prior level of function LTG Duration 04/06/21 Progress Towards Goals Progress Towards Goals Progressing Toward Goals Assessment Summary Assessment Pt continues to do well with all activities. Cues needed for jogging to keep up pace and not march instead. He will be discharging soon and is appropriate for community aquatic exercise classes at intermediate level. Will issue Aquatic HEP for him to use on trip to [place]. Physical Therapy Plan Frequency and Duration Frequency of Treatment 2x/Week Duration of treatment (weeks) 12 Plan of Care Start Date 01/04/22 Plan of Care End Date 03/29/22 Therapeutic Interventions Therapeutic Interventions Aquatic Therapy,Gait Training, Home Exercise Program,Manual Therapy,Neuromuscular Re- education,Patient/Caregiver Education,Self-Care/Home Management,Soft Tissue Mobilization,Therapeutic Activities,Therapeutic Exercises Modalities Cold Pack/Ice Massage,Electric Stimulation,Hot Packs Next Visit Focus/Plan Next Note Type Treatment Note Next Visit Plan Land-based: continue progression of strengthening, balance, flexibility. Aquatic: introduce more core stabiization exercises. Continue progression of exercises as tolerated and indicated.
--- NOTE | 2022-10-11 12:00 | PT.OPDS ---
Current Diagnoses Other chronic pain (03/17/22) Unilateral post-traumatic osteoarthritis, right hip (03/17/22) Pain in right hip (03/17/22) Pain in right knee (03/17/22) Pain in left knee (03/17/22) Difficulty in walking, not elsewhere classified (03/17/22) Other symptoms and signs involving the musculoskeletal system (03/17/22) Visit Care Team Role Provider Type Keshawn Cruz MD Family Provider Physician Primary Care Provider Specialty: Internal Medicine Address: [address] [place] [address], [id number] Email: [email or web address] Dumont DO Attending Provider Non-Staff Referring Provider Specialty: Orthopedic Surgery Address: [address] [place] [address], [phone] Email: Visit Number Visit Number 63 Discharge Summary PT-OP-B Current Condition Start: 01/04/22 11:15 Freq: Status: Active Protocol: Document 02/09/22 12:58 SAK (Rec: 02/09/22 14:13 [facility] [id number]) Current Condition History of Current Condition Onset Date 1 1/2 years Current Complaints LE weakness and pain History of Current Condition 1 1/2 years ago fell while stepping down without realizing there was a step and twisted on his knee. Left knee was doing all lifting work after that, has old footbal injury, and it started to hurt. Dr. Cruz had x- rays done, ice, Tylenol, and rest recommended. Patient reports he thinks he was too patient. Spent a lot of time sitting. Feels he lost a lot of leg strength. Used a walker for quite awhile, still uses at time especially at night going to bathroom. Legs fatigue quickly. Going to [place] in May, concerned about mobility to be able to enjoy the trip. States he knows he also needs to lose about 40 lbs Hasn't done the exercises issued from Orthopedist yet. Has done aquatic therapy exercises previously given. Prior Treatments and Tests x-ray: arthritis bilateral knees fall 11 years ago with fractured hip PT-OP-C Subjective Start: 01/04/22 11:15 Freq: Status: Active Protocol: Document 03/17/22 16:24 LJ (Rec: 03/17/22 16:37 LJ [id number]) OP-PT Subjective Patient Comments Patient Comments States continues to feel improvement. Informed Aquatic Therapy will be cancelled and is sad about that. States he is going to [place] and plans to exercise in the hotel pool. PT-OP-D Balance Start: 01/04/22 11:15 Freq: Status: Active Protocol: Document 01/04/22 14:27 [facility] (Rec: 01/04/22 16:36 [facility] [id number]) OP-PT Balance Assessment Sitting Balance Static Sitting Balance Ability Normal Dynamic Sitting Balance Ability Normal Standing Balance Static Standing Balance Ability Good Dynamic Standing Balance Ability Good Herrera Fall Scale Copyright Permission PT-OP-E Functional Tests Start: 01/04/22 11:15 Freq: Status: Active Protocol: Document 01/04/22 14:27 [facility] (Rec: 01/04/22 16:36 [facility] [id number]) Functional Tests 6 Minute Walk Test Distance 1128 Device Used none Comments antalgic, mild SOB PT-OP-G Mobility & Gait Start: 01/04/22 11:15 Freq: Status: Active Protocol: Document 01/04/22 14:27 [facility] (Rec: 01/04/22 16:36 [facility] [id number]) OP Mobility Evaluation Transfers Sit to Stand indep, no UE assist OP Gait Assessment Gait Gait Assistance Required: Independent Distance (Feet) 1,127 Able to Maintain Weight Bearing Status Yes During Gait Assistive Devices Assistive Device None Gait Deviations General Gait Pattern Antalgic Factors Limiting Gait Function Factors Limiting Gait Function Decreased Activity Tolerance, Pain Comments Gait Comments no LOB Stair Climbing Evaluation Evaluation Level of Assist On Stairs Standby Assistance Devices Stair Climbing Assistive Devices Left Railing,Right Railing Technique/Endurance Stair Climbing Direction Ascend and Descend Stair Climbing Technique Step to Step PT-OP-J Posture/Palpation/Skin Start: 01/04/22 11:15 Freq: Status: Active Protocol: Document 01/04/22 14:27 [facility] (Rec: 01/04/22 16:36 [facility] [id number]) Palpation Assessment Location medial knee joints Palpation Findings Tenderness PT-OP-K Range of Motion Start: 01/04/22 11:15 Freq: Status: Active Protocol: Document 01/04/22 14:27 [facility] (Rec: 01/04/22 16:36 [facility] [id number]) Hip Goniometric Range of Motion Hip ramses Flexion w/Knee Flexed 95 Straight Leg Raise 55 Extension 0 Abduction 30 Internal Rotation 10 External Rotation 40 Hip ROM Limitations Hip ROM Limitations Soft Tissue Tightness,Bony Restriction,Pain Knee Goniometric Range of Motion Knee ramses Flexion Active (degrees) 120 Extension Active (degrees) 10 Extension Passive (degrees) 5 Knee ROM Limitations Knee ROM Limitations Soft Tissue Tightness,Pain Ankle and Foot Goniometric Range of Motion Ankle and Foot ramses Dorsiflexion with Knee Flexed 5 Dorsiflexion with Knee Extended 0 Plantarflexion 40 Ankle and Foot ROM Limitations ROM Limitations Soft Tissue Tightness PT-OP-M Strength Start: 01/04/22 11:15 Freq: Status: Active Protocol: Document 01/04/22 14:27 [facility] (Rec: 01/04/22 15:23 [facility] [id number]) Hip Strength Hip Manual Muscle Testing Left Flexion (L2) 4 Good Extension (S1) 4- Good- Abduction 4- Good- External Rotation 4- Good- Internal Rotation 4 Good Right Flexion (L2) 4 Good Extension (S1) 4- Good- Abduction 4 Good External Rotation 4- Good- Internal Rotation 4 Good Knee Strength Knee Manual Muscle Testing ramses Flexion (S2) 4 Good Extension (L3) 4 Good Ankle/Foot Strength Ankle and Foot Manual Muscle Testing Left Dorsiflexion (L4) 4- Good- Plantarflexion (S1) 4- Good- Right Dorsiflexion (L4) 4+ Good+ Plantarflexion (S1) 4+ Good+ PT-OP-T Assessment and Plan Start: 01/04/22 11:15 Freq: Status: Active Protocol: Document 10/11/22 11:59 [facility] (Rec: 10/11/22 12:00 [facility] [id number]) Physical Therapy Plan Discharge Physical Therapy Discharge Reasons No Longer Attending PT
== END 2022-10-12 10:12 | disposition home or self-care (01) ==
LOC: PHYS 11:45
PROVIDERS: Family Provider Internal Medicine; PCP Internal Medicine; Referring Provider Orthopaedic Surgery; Visit Provider Orthopaedic Surgery
DX: M25.551 Pain in right hip (principal); M25.562 Pain in left knee; M25.561 Pain in right knee; R26.2 Difficulty in walking, not elsewhere classified; M16.51 Unilateral post-traumatic osteoarthritis, right hip; G89.29 Other chronic pain; R29.898 Other symptoms and signs involving the musculoskeletal system
CPT/HCPCS: 97110; 97112; 97113; 97140; 97162; 97535

== ENCOUNTER → 2022-04-07 10:37 | Outpatient (CLI) | payer MEDICARE, OTHER, SELFPAY ==
[2019-11-08 22:36] VITALS: BMI 40.4
[2022-04-07 12:24] LABS: Appearance Urine UA CLEAR; Bilirubin Urine UA NEGATIVE (NEGATIVE); Color Urine UA YELLOW; Glucose Urine UA NEGATIVE (Negative); Ketones Urine UA NEGATIVE (NEGATIVE); Leukocyte Esterase Urine UA 2+ (NEGATIVE); Nitrite Urine UA NEGATIVE (Negative); Occult Blood Urine UA 1+ (Negative); Protein Urine UA 2+ (Negative); Specific Gravity Urine UA 1.015 (1.000-1.035); Urobilinogen Urine UA 0.2 E.U./dL (0.2)
[2022-04-07 12:31] LABS: Bacteria Urine Moderate (10-30); Culture Indicated Urine Specimen Cultured; RBC Urine 1-5/HPF (0-5/HPF); Squamous Epithelial Cell Urine 0-1 /HPF (0-5/HPF); WBC Urine 30-100/HPF (0-5/HPF)
== END ==
PROVIDERS: Family Provider Internal Medicine; PCP Internal Medicine; Referring Provider Internal Medicine; Visit Provider Internal Medicine
DX: R30.0 Dysuria (principal)
CPT/HCPCS: 81001; 87077; 87086; 87186

== ENCOUNTER → 2022-07-26 08:24 | Outpatient (CLI) | payer MEDICARE, OTHER, SELFPAY ==
[2019-11-08 22:36] VITALS: BMI 40.4
[2022-07-26 10:12] LABS: Alanine Aminotransferase 29 IU/L (<50); Albumin 4.6 g/dL (3.5-5.0); Albumin Globulin Ratio 1.5 (1.0-2.8); Alkaline Phosphatase 63 U/L (38-126); Aspartate Aminotransferase 27 IU/L (17-59); BUN Creatinine Ratio 18.9 (6-22); Bilirubin Total 0.9 mg/dL (0.2-1.3); Blood Urea Nitrogen 18 mg/dL (9-20); Calcium 9.3 mg/dL (8.4-10.2); Carbon Dioxide 27 mmol/L (22-32); Chloride 101 mmol/L (98-107); Cholesterol 150 mg/dL (140-199); Estimated Glomerular Filt Rate > 60 mL/min (>60); Globulin 3.1 g/dL (1.7-4.1); Glucose 122 mg/dL (80-110); HDL Cholesterol 39 mg/dL (40-60); HEMOLYSIS 47 (0-50); LDL Cholesterol Calculated 76 mg/dL (<100); Potassium 4.2 mmol/L (3.4-5.1); Sodium 136 mmol/L (137-145); Total Protein 7.7 g/dL (6.3-8.2); Triglycerides 176 mg/dL (35-150)
[2022-07-27 08:37] LABS: x Labcorp Estim. Avg Glu (eAG) 134 mg/dL (.); x Labcorp Hemoglobin A1c 6.3 % (4.8-5.6)
== END ==
PROVIDERS: Family Provider Internal Medicine; PCP Internal Medicine; Referring Provider Internal Medicine; Visit Provider Internal Medicine
DX: E78.2 Mixed hyperlipidemia; I10 Essential (primary) hypertension; R73.01 Impaired fasting glucose
CPT/HCPCS: 36415; 80053; 80061; 83036

== ENCOUNTER 2022-12-05 14:27 | Emergency (ER) | payer MEDICARE, OTHER, SELFPAY ==
[2019-11-08 22:36] VITALS: BMI 40.4
[2022-12-05 14:31] VITALS: PULSE 89; O2SAT 93
[2022-12-05 14:32] VITALS: BP 180/77; PULSE 86; O2SAT 92
[2022-12-05 14:38] VITALS: BP 180/77; PULSE 94; RESP 16; TEMP 36.9; O2SAT 93; BMI 39.3
--- NOTE | 2022-12-05 14:55 | ED_ITS ---
HPI - Male Genitourinary General Chief complaint: Urogenital-Male Stated complaint: Severe urinary issues; pain, high frequency Time Seen by Provider: 12/05/22 14:34 History of Present Illness HPI Narrative: 82yoM with remote hx bladder cancer (frequently straight catheterizes), aortic s tenosis s/p TAVR 2017, HTN, HLD presents by private vehicle for urinary frequency and burning with urination. Patient states that he normally urinates 6 times a day but last night he urinated up to 11 times a day. He also felt some lower lumbar pain earlier this morning and he called his primary care doctor's office, who referred him to the emergency department for evaluation. Patient has previously been in his usual state of health and there have been no new health changes. Patient states that his back pain has resolved, but he is worried that he may have a urinary tract infection Related Data Home Medications Medication Instructions Recorded Confirmed aspirin 81 mg tablet,delayed 81 mg PO DAILY ##0 02/21/10 07/22/22 release (Aspir-Low) hydralazine 100 mg tablet 100 mg PO TID 07/22/21 07/22/22 rosuvastatin 5 mg tablet 5 mg PO DAILY 07/22/21 07/22/22 vit C 250 mg-vit E 90 mg-zinc 40 1 tab PO BID 02/10/22 07/22/22 mg-copper 1 [id number] capsule (PreserVision AREDS-2) Previous Rx's Medication Instructions Recorded irbesartan 300 mg tablet (Avapro) 300 mg PO QDAY #90 tabs 09/15/22 diltiazem HCl 240 mg capsule,24 240 mg PO BID #180 caps 11/15/22 hr,extended release cefpodoxime 200 mg tablet 200 mg PO BID #14 tabs 12/05/22 Allergies Allergy/AdvReac Type Severity Reaction Status Date / Time latex Allergy Intermediate Hives Verified 07/22/22 10:20 Review of Systems Review of Systems Narrative: CONSTITUTIONAL- Denies: fever, chills, fatigue HEENT- Denies: sore throat, nosebleed, vision changes RESPIRATORY- Denies: shortness of breath, cough, wheezing CARDIAC- Denies: chest pain, edema, orthopnea GI- Denies: abdominal pain, nausea, vomiting, constipation, diarrhea -reports: Dysuria, frequency Denies: hematuria, flank pain MSK- Denies: extremity pain, extremity swelling, joint pain, joint swelling SKIN- Denies: rash, itching, burn, swelling NEUROLOGICAL- Denies: headache, numbness, weakness, dizziness PSYCHIATRIC- Denies: anxiety, depression, suicidal ideation, homicidal ideation Patient History Medical History (Updated 12/05/22 @ 15:48 by Yun Milton MD) Aortic stenosis (~2016) Bladder cancer (~2016) BPH (benign prostatic hyperplasia) Cataracts, bilateral (~2013) Central sleep apnea Do not resuscitate Essential hypertension Hearing loss Heart disease Hemorrhoid (~2011) History of bladder cancer History of colonic polyps History of melanoma History of nonmelanoma skin cancer Hypertension (~1989) Impaired fasting glucose Mixed hyperlipidemia Morbid obesity with body mass index of 40.0-49.9 Obstructive sleep apnea of adult Primary osteoarthritis Skin cancer (~1997) Surgical History Anesthesia History of appendectomy (~1947) History of bladder surgery (~2016) History of tonsillectomy (~1949) History of umbilical hernia (~2003) S/P TAVR (transcatheter aortic valve replacement) (~2016) Family History Father Smoker Cancer Mother Smoker Cancer Lung cancer Sister Cancer Sister Cancer Grandfather Cerebral hemorrhage Social History household members: spouse Smoking Status: Never smoker alcohol intake: current Smoking Status: Never smoker alcohol intake frequency: 0-2 drinks per day Substance Use Type: does not use Exam Initial Vital Signs Initial Vital Signs: Vital Signs Pulse Rate 89 12/05/22 14:31 Pulse Oximetry 93 12/05/22 14:31 Const: Well-nourished, Well-developed, appears stated age Eyes: PERRL, EOMI, conjunctiva normal ENT: Atraumatic, dentition normal, mucous membranes moist Cardiac: regular rate, regular rhythm RESP: unlabored, clear bilaterally, no wheezing GI: Atraumatic, soft, nontender, nondistended, no rebound, no guarding : Atraumatic, no CVA tenderness bilaterally MSK: Atraumatic, full range of motion, pulses equal Skin: Warm, Dry, intact, no rashes Neuro: AO x3, CN II-XII grossly intact, moves all extremities Psych: affect normal, mood normal, not suicidal, not homicidal Course Course Course Narrative: Well-appearing patient with 1 day of dysuria and frequency. Stated earlier today he had lower lumbar back pain, however on my exam he has no back pain currently and no CVA tenderness to indicate pyelonephritis. Urinalysis with leukocyte esterase and WBCs with bacteria. We will treat as UTI. Patient states that he has not been on antibiotics in at least 1 year. Antibiotics sent to pharmacy of choice. ED return precautions discussed at bedside. Patient expressed understanding of the plan and is in agreement at this time. All questions answered at the time of discharge. Orders Ordered: ED Orders 12/05/22 14:08 Urine Culture Stat Urine Microscopic Stat Vital Signs Vital signs: Vital Signs - 8 hr 12/05/22 14:38 12/05/22 14:31 12/05/22 14:32 Temperature 98.5 F Pulse Rate 94 H 89 86 Respiratory Rate 16 Blood Pressure 180/77 H Pulse Oximetry 93 93 92 Oxygen Delivery Method Room Air 12/05/22 14:32 12/05/22 15:00 12/05/22 15:01 Temperature Pulse Rate 81 79 Respiratory Rate Blood Pressure 180/77 H Pulse Oximetry 94 93 Oxygen Delivery Method 12/05/22 15:01 12/05/22 15:30 12/05/22 15:30 Temperature Pulse Rate 77 Respiratory Rate Blood Pressure 182/76 H 166/77 H Pulse Oximetry 92 Oxygen Delivery Method Room Air MDM - Male Genitourinary Lab Data Labs: Lab Results 12/05/22 Range/Units 14:08 Urine RBC 10-30/hpf H (0-5/HPF) Urine WBC >100/hpf H (0-5/HPF) Ur Squamous Epith Cells None seen (0-5/HPF) Urine Bacteria Few (2-10) H (None) Ur Culture Indicated? Specimen cultured Urine Dip Bedside Urine Glucose Negative Bedside Urine Bilirubin - Negative Bedside Urine Ketone - Negative Urine Specific [place] 1.010 Bedside Urine Occult Blood +++ Bedside Urine pH 6.0 Bedside Urine Protein ++ 100 Bedside Urine Urobilinogen - Negative Bedside Urine Nitrite + Positive Bedside Urine Leukocytes +++ 500 Esterase Discharge Plan Departure Patient Disposition: Home Clinical Impression: Urinary tract infection Instructions: DI for Urinary Tract Infection (UTI) Prescriptions: New cefpodoxime 200 mg tablet 200 mg PO BID Qty: 14 0RF Rx Instructions: must administer with a meal/food No Action aspirin [Aspir-Low] 81 mg Tablet,Delayed Release (Dr/Ec) 81 mg PO DAILY Qty: 0 irbesartan [Avapro] 300 mg tablet 300 mg PO QDAY Qty: 90 1RF diltiazem HCl 240 mg capsule,extended release 24 hr 240 mg PO BID Qty: 180 3RF hydralazine 100 mg tablet 100 mg PO TID rosuvastatin 5 mg tablet 5 mg PO DAILY PreserVision AREDS-2 250-90-40-1 mg capsule 1 tab PO BID Referrals: Keshawn Cruz MD [Primary Care Provider] - Stand Alone Forms: Patient Portal/API
[2022-12-05 15:00] VITALS: PULSE 81; O2SAT 94
[2022-12-05 15:01] VITALS: BP 182/76; PULSE 79; O2SAT 93
[2022-12-05 15:30] VITALS: BP 166/77; PULSE 77; O2SAT 92
[2022-12-05 15:40] LABS: Bacteria Urine Few (2-10); Culture Indicated Urine Specimen Cultured; RBC Urine 10-30/HPF (0-5/HPF); Squamous Epithelial Cell Urine None Seen (0-5/HPF); WBC Urine >100/HPF (0-5/HPF)
== END 2022-12-05 16:00 | disposition home or self-care (01) ==
PROVIDERS: Emergency Provider Emergency Medicine; Family Provider Internal Medicine; PCP Internal Medicine
DX: N39.0 Urinary tract infection, site not specified (principal)
CPT/HCPCS: 51798; 81003; 81015; 87077; 87086; 87186; 99282

== ENCOUNTER → 2022-12-24 17:26 | Outpatient (CLI) | payer MEDICARE, OTHER, SELFPAY ==
[2019-11-08 22:36] VITALS: BMI 40.4
== END ==
PROVIDERS: Family Provider Internal Medicine; PCP Internal Medicine; Visit Provider Student in an Organized Health Care Education/Training Program
DX: R30.0 Dysuria (principal)
CPT/HCPCS: 87077; 87086; 87186

== ENCOUNTER → 2023-05-10 16:17 | Outpatient (CLI) | payer MEDICARE, OTHER, SELFPAY ==
[2019-11-08 22:36] VITALS: BMI 40.4
[2023-05-10 18:33] LABS: Aspartate Aminotransferase 22 IU/L (17-59); BUN Creatinine Ratio 19.6 (6-22); Blood Urea Nitrogen 20 mg/dL (9-20); Calcium 9.6 mg/dL (8.4-10.2); Carbon Dioxide 25 mmol/L (22-32); Chloride 103 mmol/L (98-107); Cholesterol 142 mg/dL (140-199); Estimated Glomerular Filt Rate > 60 mL/min (>60); Glucose 127 mg/dL (80-110); HDL Cholesterol 33 mg/dL (40-60); HEMOLYSIS < 15 (0-50); LDL Cholesterol Calculated 66 mg/dL (<100); Potassium 3.6 mmol/L (3.4-5.1); Sodium 138 mmol/L (137-145); Triglycerides 216 mg/dL (35-150)
[2023-05-11 02:08] LABS: Hemoglobin A1C% w Est Avg Glu 6.3 % (4.0-6.0)
== END ==
PROVIDERS: Family Provider Internal Medicine; PCP Internal Medicine; Referring Provider Internal Medicine; Visit Provider Internal Medicine
DX: E78.2 Mixed hyperlipidemia (principal); I10 Essential (primary) hypertension
CPT/HCPCS: 36415; 80048; 80061; 83036; 84450

== ENCOUNTER → 2023-06-21 10:01 | Outpatient (CLI) | payer MEDICARE, OTHER, SELFPAY ==
[2019-11-08 22:36] VITALS: BMI 40.4
[2023-06-21 10:20] LABS: Appearance Urine UA SL CLOUDY; Bilirubin Urine UA NEGATIVE (NEGATIVE); Color Urine UA YELLOW; Glucose Urine UA NEGATIVE (Negative); Ketones Urine UA NEGATIVE (NEGATIVE); Leukocyte Esterase Urine UA 2+ (NEGATIVE); Nitrite Urine UA NEGATIVE (Negative); Occult Blood Urine UA NEGATIVE (Negative); Protein Urine UA 1+ (Negative); Urobilinogen Urine UA 0.2 E.U./dL (0.2); pH Urine UA 6.5 (4.5-8.0)
[2023-06-21 10:32] LABS: Bacteria Urine Few (2-10); Culture Indicated Urine Specimen Cultured; RBC Urine None Seen (0-5/HPF); Squamous Epithelial Cell Urine None Seen (0-5/HPF); Urine Volume 10mL (spun); WBC Urine 30-100/HPF (0-5/HPF)
== END ==
PROVIDERS: Family Provider Internal Medicine; PCP Internal Medicine; Visit Provider Nurse Practitioner Family
DX: R30.0 Dysuria (principal)
CPT/HCPCS: 81001; 87077; 87086; 87186

== ENCOUNTER → 2023-09-22 11:58 | Outpatient (CLI) | payer MEDICARE, OTHER, SELFPAY ==
[2019-11-08 22:36] VITALS: BMI 40.4
== END ==
PROVIDERS: Family Provider Internal Medicine; PCP Internal Medicine; Visit Provider Nurse Practitioner Family
DX: R30.0 Dysuria (principal)
CPT/HCPCS: 87077; 87086; 87186

== ENCOUNTER → 2024-02-27 12:13 | Outpatient (CLI) | payer MEDICARE, OTHER, SELFPAY ==
[2019-11-08 22:36] VITALS: BMI 40.4
== END ==
PROVIDERS: Family Provider Internal Medicine; PCP Internal Medicine; Visit Provider Nurse Practitioner Family
DX: R30.0 Dysuria (principal)
CPT/HCPCS: 87077; 87086; 87186

== ENCOUNTER → 2024-05-15 09:29 | Outpatient (CLI) | payer MEDICARE, OTHER, SELFPAY ==
[2019-11-08 22:36] VITALS: BMI 40.4
[2024-05-15 10:21] LABS: Hematocrit 40.5 % (41-53); Hemoglobin 13.3 g/dL (13.5-17.5); Mean Corpuscular HGB Conc 32.7 % (30-36); Mean Corpuscular Volume 85.6 fL (80-100); Platelet Count 258 X10^3/uL (150-400); Red Blood Cell Count 4.73 X10^6/uL (4.5-5.9); Red Cell Distribution Width 14.9 % (11.6-14.8); White Blood Cell Count 6.7 X10^3/uL (4.5-11.0)
[2024-05-15 10:35] LABS: Hemoglobin A1C% w Est Avg Glu 6.4 % (4.0-6.0)
[2024-05-15 10:45] LABS: Aspartate Aminotransferase 27 IU/L (17-59); BUN Creatinine Ratio 14.3 (6-22); Blood Urea Nitrogen 16 mg/dL (9-20); Calcium 9.4 mg/dL (8.4-10.2); Carbon Dioxide 25 mmol/L (22-32); Chloride 103 mmol/L (98-107); Cholesterol 102 mg/dL (140-199); Estimated Glomerular Filt Rate > 60 mL/min (>60); Glucose 134 mg/dL (80-110); HDL Cholesterol 35 mg/dL (40-60); HEMOLYSIS < 15 (0-50); LDL Cholesterol Calculated 38 mg/dL (<100); Potassium 3.7 mmol/L (3.4-5.1); Sodium 139 mmol/L (137-145); Triglycerides 143 mg/dL (35-150)
== END ==
PROVIDERS: Family Provider Internal Medicine; PCP Internal Medicine; Referring Provider Internal Medicine; Visit Provider Internal Medicine
DX: I10 Essential (primary) hypertension (principal); R73.01 Impaired fasting glucose; E78.2 Mixed hyperlipidemia; I25.10 Atherosclerotic heart disease of native coronary artery without angina pectoris
CPT/HCPCS: 36415; 80048; 80061; 83036; 84450; 85027

== ENCOUNTER → 2024-08-06 10:34 | Outpatient (CLI) | payer MEDICARE, OTHER, SELFPAY ==
[2019-11-08 22:36] VITALS: BMI 40.4
== END ==
PROVIDERS: Family Provider Internal Medicine; PCP Internal Medicine; Visit Provider Physician Assistant
DX: N39.0 Urinary tract infection, site not specified (principal); R30.0 Dysuria
CPT/HCPCS: 81002; 87077; 87086; 87186

== ENCOUNTER → 2024-08-20 16:39 | Outpatient (CLI) | payer MEDICARE, OTHER, SELFPAY ==
[2019-11-08 22:36] VITALS: BMI 40.4
== END ==
LOC: LAB 16:39
PROVIDERS: Family Provider Internal Medicine; PCP Internal Medicine; Visit Provider Nurse Practitioner Family
DX: R30.0 Dysuria (principal)
CPT/HCPCS: 87077; 87086; 87186

== ENCOUNTER → 2024-08-26 11:33 | Outpatient (CLI) | payer MEDICARE, OTHER, SELFPAY ==
[2019-11-08 22:36] VITALS: BMI 40.4
[2024-08-26 12:23] LABS: Influenza A - CEPHEID Flu A NEGATIVE (NEGATIVE); Influenza B - CEPHEID Flu B NEGATIVE (NEGATIVE); Respiratory Syncytial Virus Negative (Negative)
[2024-08-26 12:27] LABS: COVID-19 CEPHEID 4-PLEX PCR Negative (Negative)
== END ==
PROVIDERS: Family Provider Internal Medicine; PCP Internal Medicine; Visit Provider Registered Nurse
DX: R05.9 Cough, unspecified (principal)
CPT/HCPCS: 0241U

== ENCOUNTER → 2024-08-26 11:53 | Outpatient (CLI) | payer MEDICARE, OTHER, SELFPAY ==
[2019-11-08 22:36] VITALS: BMI 40.4
--- NOTE | 2024-08-26 11:56 | DI.RAD.S_ITS ---
PROCEDURE: XR CHEST 2V INDICATIONS: Shortness of breath TECHNIQUE: 2 views of the chest were acquired. COMPARISON: [facility], , XR CHEST 1V, 11/08/2019, 20:18. FINDINGS: Surgical changes and devices: Prosthetic aortic valve is present. Lungs and pleura: Suspected patchy lower lobe opacities. No pleural effusions or pneumothorax. Mediastinum: Mediastinal contours are normal. Heart size is normal. Bones and chest wall: No suspicious bony abnormalities. Soft tissues appear unremarkable. IMPRESSION: Subtle patchy lower lobe opacities suspicious for pneumonia or aspiration. Approved by: Alfonso Pack M.D. on 08/26/2024 at 12:03
== END ==
PROVIDERS: Family Provider Internal Medicine; PCP Internal Medicine; Referring Provider Registered Nurse; Visit Provider Registered Nurse
DX: R06.02 Shortness of breath (principal); R05.9 Cough, unspecified
CPT/HCPCS: 0241U; 71046

== ENCOUNTER 2024-09-27 12:30 | Outpatient (RCR) | payer MEDICARE, OTHER, SELFPAY ==
[2019-11-08 22:36] VITALS: BMI 40.4
== END 2024-09-27 14:30 ==
LOC: CAR 12:30
PROVIDERS: Family Provider Internal Medicine; PCP Internal Medicine; Referring Provider Internal Medicine; Visit Provider Internal Medicine
DX: Z95.5 Presence of coronary angioplasty implant and graft (principal); I21.9 Acute myocardial infarction, unspecified
CPT/HCPCS: 93798

== ENCOUNTER → 2024-10-13 08:42 | Outpatient (CLI) | payer MEDICARE, OTHER, SELFPAY ==
[2019-11-08 22:36] VITALS: BMI 40.4
[2024-10-13 09:55] LABS: Cholesterol 108 mg/dL (140-199); HDL Cholesterol 33 mg/dL (40-60); Triglycerides 176 mg/dL (35-150)
== END ==
PROVIDERS: Family Provider Internal Medicine; PCP Internal Medicine; Referring Provider Internal Medicine; Visit Provider Internal Medicine Cardiovascular Disease
DX: E78.2 Mixed hyperlipidemia (principal)
CPT/HCPCS: 36415; 80061

== ENCOUNTER → 2024-12-17 11:53 | Outpatient (CLI) | payer MEDICARE, OTHER, SELFPAY ==
[2019-11-08 22:36] VITALS: BMI 40.4
== END ==
PROVIDERS: PCP Internal Medicine; Visit Provider Physician Assistant Medical
DX: R39.15 Urgency of urination (principal)
CPT/HCPCS: 87077; 87086; 87186